=== PATIENT | male | born 1955 | race African-American/Black ===

== ENCOUNTER 2016-08-20 11:59 | Inpatient (IN) | payer MEDICAID, OTHER ==
[~2016-08-20] VITALS: Ht 180.3 cm; Wt 59.0 kg
[2016-08-20] MEDS ORDERED: ONDANSETRON HCL 4MG/2ML VIAL IV STA (12:40)
[2016-08-20] MEDS ORDERED: LABETALOL 5MG/ML SYR 20 MG/4 ML SYRINGE IV ONE (12:45)
[2016-08-20 12:59] LABS: BG BASE EXCESS -2.3 mmol/L (-2.0-2.0); BG CARBOXYHEMOGLOBIN 3.9 % (0.5-1.5); BG DEOXYHEMOGLOBIN 5.1 % (0.0-5.0); BG FRACTION INSPIRED OXYGEN 21; BG HCO3 ACT 22.6 mmol/L (22.0-26.0); BG METHEMOGLOBIN 0.3 % (0.0-1.5); BG OXYGEN SATURATION 94.7 % (92.0-98.5); BG OXYHEMOGLOBIN 90.7 % (94.0-97.0); BG PCO2 39.3 mmHg (35.0-45.0); BG PH 7.378 (7.350-7.450); BG PO2 79.4 mmHg (75.0-100.0); BG SAMPLE SITE RIGHT BRACHIAL; BG VENT MODE ROOM AIR
[2016-08-20 13:15] LABS: EOSINOPHILS % 1.2 % (0.0-5.0); HEMATOCRIT. 32.6 % (42.0-52.0); HEMOGLOBIN. 10.6 g/dL (14.0-18.0); LYMPHOCYTES % 20.1 % (20.0-50.0); MEAN CORPUSCULAR HEMOGLOBIN 27.5 pg (28.0-32.0); MEAN CORPUSCULAR VOLUME 84.6 fL (80.0-94.0); MEAN PLATELET VOLUME 7.3 fl (7.4-10.4); MONOCYTES % 5.6 % (2.0-8.0); NEUTROPHILS % 72.1 % (40.0-76.0); PLATELET 235 x1000/uL (130-400); RED BLOOD CELL COUNT 3.85 mill/uL (4.7-6.1)
[2016-08-20] MEDS ORDERED: DEXTROSE 50% WATER 50ML SYRINGE IV ONE (13:15)
[2016-08-20] MEDS ORDERED: CALCIUM CHLORIDE 1GM/10ML SYR IV ONE (13:15)
[2016-08-20] MEDS ORDERED: SODIUM BICARBONATE 8.4% 1 MEQ/ML 50ML SYR IV ONE (13:15)
[2016-08-20] MEDS ORDERED: INSULIN REGULAR (HUMULIN R) 300UNITS/3ML IV ONE (13:15)
[2016-08-20] MEDS ORDERED: SODIUM POLYSTYRENE SULFONATE 15 G/60 ML BOT PO ONE (13:15)
[2016-08-20 13:25] LABS: INR 1.1; PARTIAL THROMBOPLASTIN TIME 29.7 sec (24.0-34.0); PROTHROMBIN TIME 11.2 sec
[2016-08-20] MEDS ORDERED: DIPHENHYDRAMINE 50MG/ML VIAL IV PRN (13:30)
[2016-08-20] MEDS ORDERED: CLONIDINE 0.1MG TABLET PO PRN (13:30)
[2016-08-20] MEDS ORDERED: HYDRALAZINE 20MG/ML VIAL IV PRN (13:30)
[2016-08-20] MEDS ORDERED: ACETAMINOPHEN 325MG TABLET PO PRN (13:30)
[2016-08-20] MEDS ORDERED: ONDANSETRON HCL 4MG/2ML VIAL IV PRN (13:30)
[2016-08-20] MEDS ORDERED: IPRATROPIUM/ALBUTEROL 0.5-3(2.5)MG/3ML NEB INH PRN (13:30)
[2016-08-20] MEDS ORDERED: HYDROCODONE/ACETAMINOPHEN 5/325MG TABLET PO PRN (13:30)
[2016-08-20 13:31] LABS: CARBON DIOXIDE 26 mEq/L (21-32); CHLORIDE 100 mEq/L (98-107); PHOSPHORUS 5.3 mg/dL (2.5-4.9); TROPONIN I 0.04 ng/mL (0.00-0.04)
[2016-08-20 14:35] VITALS: BP 176/78
[2016-08-20 16:00] VITALS: BP 185/104
[2016-08-20] MEDS ORDERED: CARV25TA47 (17:10)
[2016-08-20] MEDS ORDERED: TAMS0.4C31 (17:10)
[2016-08-20] MEDS ORDERED: CEPH500C2 (17:10)
[2016-08-20] MEDS ORDERED: CALC667C (17:10)
[2016-08-20] MEDS ORDERED: CLON0.1T (17:10)
[2016-08-20] MEDS ORDERED: AMLO5TAB88 (17:10)
[2016-08-20] MEDS ORDERED: FOLI0.8T23 (17:10)
[2016-08-20] MEDS ORDERED: LOSA50TA20 (17:10)
[2016-08-20] MEDS ORDERED: HYDR-3927 (17:10)
== END 2016-08-20 20:30 | disposition left against medical advice (07) | DRG 460 ==
LOC: ER 12:00 → 8WST 13:05 → EDBEDREQSVC 13:07 → EDBEDREQTM 13:07 → EDBEDREQ 13:07 → ENRESERV 13:29
PROVIDERS: ADMIT Internal Medicine; ATTEND Internal Medicine
PROC: 5A1D00Z (ICD-10-PCS; principal; 2016-08-20)
DX: I12.0 Hypertensive chronic kidney disease with stage 5 chronic kidney disease or end stage renal disease (principal); N17.9 Acute kidney failure, unspecified; E87.8 Other disorders of electrolyte and fluid balance, not elsewhere classified; E87.70 Fluid overload, unspecified; N18.6 End stage renal disease; F12.90 Cannabis use, unspecified, uncomplicated; Z53.21 Procedure and treatment not carried out due to patient leaving prior to being seen by health care provider; I16.0 Hypertensive urgency; Z63.9 Problem related to primary support group, unspecified; Z99.2 Dependence on renal dialysis; Z91.19 Patient's noncompliance with other medical treatment and regimen
CPT/HCPCS: 36415; 36600; 70450; 71010; 80053; 82375; 82805; 82962; 83690; 83735; 84100; 84443; 84484; 85025; 85610; 85730; 87040; 93005; 96374; 96375; 99291; J1815; J2405; J3490; J7030

== ENCOUNTER 2016-08-21 22:51 | Inpatient (IN) | payer OTHER ==
[~2016-08-21] VITALS: Ht 180.3 cm; Wt 76.8 kg
[~2016-08-21 22:51] MED LIST: AMLO5TAB88; CALC667C; CARV25TA47; CEPH500C2; CLON0.1T; FOLI0.8T23; HYDR-3927; LOSA50TA20; TAMS0.4C31
[2016-08-21] MEDS ORDERED: FAMOTIDINE 20MG/2ML VIAL IV STA (23:10)
[2016-08-21] MEDS ORDERED: SODIUM CHLORIDE 0.9% 500 ML IV ONE (23:10)
[2016-08-21] MEDS ORDERED: ONDANSETRON HCL 4MG/2ML VIAL IV ONE (23:15)
[2016-08-21] MEDS ORDERED: MORPHINE SULFATE 2 MG/ML CPJ (NOT FOR IM USE) IV ONE (23:15)
[2016-08-22] MEDS ORDERED: HYDRALAZINE 20MG/ML VIAL IV ONE (00:15)
[2016-08-22 00:27] LABS: HEMATOCRIT. 32.8 % (42.0-52.0); HEMOGLOBIN. 10.8 g/dL (14.0-18.0); INR 1.1; MEAN CORPUSCULAR HEMOGLOBIN 27.5 pg (28.0-32.0); MEAN CORPUSCULAR VOLUME 83.6 fL (80.0-94.0); MEAN PLATELET VOLUME 7.7 fl (7.4-10.4); PLATELET 235 x1000/uL (130-400); PROTHROMBIN TIME 11.5 sec; RED BLOOD CELL COUNT 3.92 mill/uL (4.7-6.1); RED CELL DISTRIBUTION WIDTH 17.3 % (11.6-14.6)
[2016-08-22 00:30] LABS: AMMONIA 26 uMol/L (<32)
[2016-08-22 00:34] LABS: CARBON DIOXIDE 28 mEq/L (21-32); CHLORIDE 97 mEq/L (98-107); CREATINE KINASE 101 IU/L (39-308); ETHANOL BLOOD < 10 mg/dL; TROPONIN I 0.04 ng/mL (0.00-0.04)
[2016-08-22] MEDS ORDERED: MORPHINE SULFATE 4 MG/ML CPJ (NOT FOR IM USE) IV ONE (02:00)
[2016-08-22] MEDS ORDERED: ONDANSETRON HCL 4MG/2ML VIAL IV ONE (02:00)
[2016-08-22 05:05] LABS: PLATELET ESTIMATE NORMAL
[2016-08-22 09:02] VITALS: BP 147/97
[2016-08-22 10:00] VITALS: BP 147/97
[2016-08-22] MEDS ORDERED: ONDANSETRON HCL 4MG/2ML VIAL IV PRN (11:45)
[2016-08-22 12:13] VITALS: BP 183/114
== END 2016-08-22 15:40 | disposition left against medical advice (07) | DRG 460 ==
LOC: ER 22:55 → EDBEDREQ 08-22 03:45 → ENRESERV 08-22 07:00 → 6WST 08-22 08:45
PROVIDERS: ADMIT Internal Medicine; ATTEND Internal Medicine
PROC: 5A1D00Z (ICD-10-PCS; principal; 2016-08-22)
DX: I12.0 Hypertensive chronic kidney disease with stage 5 chronic kidney disease or end stage renal disease (principal); N18.6 End stage renal disease; F12.90 Cannabis use, unspecified, uncomplicated; Z53.21 Procedure and treatment not carried out due to patient leaving prior to being seen by health care provider; Z99.2 Dependence on renal dialysis
CPT/HCPCS: 36415; 71010; 74176; 80053; 82140; 82550; 83605; 83690; 83880; 84443; 84484; 85025; 85610; 87040; 87077; 93005; 96361; 96374; 96375; 96376; 99285; G0482; J0360; J2270; J2405; J3490; J7040

== ENCOUNTER 2016-09-01 18:03 | Inpatient (IN) | payer OTHER ==
[~2016-09-01] VITALS: Ht 180.3 cm; Wt 58.1 kg
[2016-09-01] MEDS ORDERED: ONDANSETRON HCL 4MG/2ML VIAL IV STA (18:26)
[2016-09-01 19:04] LABS: INR 1.1; PARTIAL THROMBOPLASTIN TIME 32.7 sec (24.0-34.0)
[2016-09-01 19:05] LABS: BASOPHILS % 0.9 % (0.0-2.0); EOSINOPHILS % 0.8 % (0.0-5.0); HEMATOCRIT. 26.5 % (42.0-52.0); HEMOGLOBIN. 8.7 g/dL (14.0-18.0); MEAN CORPUSCULAR HEMOGLOBIN 26.7 pg (28.0-32.0); MEAN CORPUSCULAR VOLUME 81.4 fL (80.0-94.0); MEAN PLATELET VOLUME 7.8 fl (7.4-10.4); MONOCYTES % 5.6 % (2.0-8.0); NEUTROPHILS % 80.7 % (40.0-76.0); PLATELET 310 x1000/uL (130-400); RED BLOOD CELL COUNT 3.26 mill/uL (4.7-6.1); RED CELL DISTRIBUTION WIDTH 17.5 % (11.6-14.6)
[2016-09-01 19:13] LABS: CARBON DIOXIDE 25 mEq/L (21-32); CHLORIDE 95 mEq/L (98-107); TROPONIN I < 0.02 ng/mL (0.00-0.04)
[2016-09-01] MEDS ORDERED: CALCIUM CHLORIDE 1GM/10ML SYR IV ONE (19:30)
[2016-09-01] MEDS ORDERED: SODIUM POLYSTYRENE SULFONATE 15 G/60 ML BOT PO ONE (19:30)
[2016-09-01] MEDS ORDERED: INSULIN REGULAR (HUMULIN R) 300UNITS/3ML IV ONE (19:30)
[2016-09-01] MEDS ORDERED: ALBUTEROL (0.083%) 2.5MG/3ML NEB HHN ONE (19:30)
[2016-09-01] MEDS ORDERED: SODIUM BICARBONATE 8.4% 1 MEQ/ML 50ML SYR IV ONE (19:30)
[2016-09-01] MEDS ORDERED: DEXTROSE 50% WATER 50ML SYRINGE IV ONE (19:30)
[2016-09-01 23:00] VITALS: BP 161/97
[2016-09-02] VITALS (9 sets, daily range): BP systolic 133–161; BP diastolic 78–111
[2016-09-02 06:32] LABS: BASOPHILS % 0.7 % (0.0-2.0); EOSINOPHILS % 0.7 % (0.0-5.0); HEMATOCRIT. 31.5 % (42.0-52.0); HEMOGLOBIN. 10.3 g/dL (14.0-18.0); LYMPHOCYTES % 12.8 % (20.0-50.0); MEAN CORPUSCULAR HEMOGLOBIN 26.6 pg (28.0-32.0); MEAN PLATELET VOLUME 7.8 fl (7.4-10.4); MONOCYTES % 4.8 % (2.0-8.0); PLATELET 330 x1000/uL (130-400); RED BLOOD CELL COUNT 3.89 mill/uL (4.7-6.1); RED CELL DISTRIBUTION WIDTH 17.4 % (11.6-14.6)
[2016-09-02 07:30] LABS: PHOSPHORUS 4.5 mg/dL (2.5-4.9)
[2016-09-02] MEDS ORDERED: TAMSULOSIN HCL 0.4MG SR CAPSULE PO SCH (09:00)
[2016-09-02] MEDS: CALCIUM ACETATE 667MG CAPSULE PO SCH ×2 (09:07→14:03)
[2016-09-02] MEDS ORDERED: CEFAZOLIN 1000MG PREMIX 50 ML IV SCH (14:00)
[2016-09-02] MEDS ORDERED: EPOETIN ALFA 10000UNITS/ML VIAL SUBCUT SCH (21:00)
== END 2016-09-02 17:35 | disposition left against medical advice (07) | DRG 460 ==
LOC: ER 19:22 → 5EST 21:12 → EDBEDREQ 21:14 → EDBEDREQSVC 21:14 → EDBEDREQTM 21:14 → ENRESERV 21:29
PROVIDERS: ADMIT Internal Medicine; ATTEND Internal Medicine
PROC: 5A1D00Z (ICD-10-PCS; principal; 2016-09-02)
DX: I12.0 Hypertensive chronic kidney disease with stage 5 chronic kidney disease or end stage renal disease (principal); N18.6 End stage renal disease; E87.1 Hypo-osmolality and hyponatremia; E87.5 Hyperkalemia; N40.0 Benign prostatic hyperplasia without lower urinary tract symptoms; D63.8 Anemia in other chronic diseases classified elsewhere; F12.90 Cannabis use, unspecified, uncomplicated; F17.210 Nicotine dependence, cigarettes, uncomplicated; Z91.15 Patient's noncompliance with renal dialysis; Z99.2 Dependence on renal dialysis
CPT/HCPCS: 36415; 71010; 80048; 84100; 84484; 85025; 85610; 85730; 87040; 93005; 93306; 94640; 96374; 96375; 99285; J0690; J1815; J2405; J3490; J7030; J7611

== ENCOUNTER 2016-09-07 19:13 | Inpatient (IN) | payer OTHER ==
[~2016-09-07] VITALS: Ht 180.3 cm; Wt 70.8 kg
[2016-09-07] MEDS ORDERED: MORPHINE SULFATE 4 MG/ML CPJ (NOT FOR IM USE) IV STA (19:53)
[2016-09-07] MEDS ORDERED: LABETALOL HCL 20MG/4ML CARPUJECT IV ONE (20:00)
[2016-09-07 20:12] LABS: BASOPHILS % 1.8 % (0.0-2.0); HEMATOCRIT. 27.5 % (42.0-52.0); HEMOGLOBIN. 8.8 g/dL (14.0-18.0); MEAN CORPUSCULAR HEMOGLOBIN 26.4 pg (28.0-32.0); MEAN CORPUSCULAR VOLUME 82.2 fL (80.0-94.0); MEAN PLATELET VOLUME 7.4 fl (7.4-10.4); MONOCYTES % 8.3 % (2.0-8.0); NEUTROPHILS % 64.9 % (40.0-76.0); PLATELET 387 x1000/uL (130-400); RED BLOOD CELL COUNT 3.34 mill/uL (4.7-6.1); RED CELL DISTRIBUTION WIDTH 17.5 % (11.6-14.6)
[2016-09-07 20:16] LABS: INR 1.1; PROTHROMBIN TIME 11.6 sec
[2016-09-07 20:24] LABS: CARBON DIOXIDE 23 mEq/L (21-32); CHLORIDE 97 mEq/L (98-107); TROPONIN I < 0.02 ng/mL (0.00-0.04)
[2016-09-07] MEDS ORDERED: FUROSEMIDE 100MG/10ML VIAL IV STA (20:28)
[2016-09-07] MEDS ORDERED: INSULIN REGULAR (HUMULIN R) 300UNITS/3ML IV ONE (20:30)
[2016-09-07] MEDS ORDERED: ALBUTEROL (0.083%) 2.5MG/3ML NEB HHN ONE (20:30)
[2016-09-07] MEDS ORDERED: SODIUM POLYSTYRENE SULFONATE 15 G/60 ML BOT PO ONE (20:30)
[2016-09-07] MEDS ORDERED: SODIUM BICARBONATE 8.4% 1 MEQ/ML 50ML SYR IV ONE (20:30)
[2016-09-07] MEDS ORDERED: LABETALOL HCL 20MG/4ML CARPUJECT IV NR (20:30)
[2016-09-07] MEDS ORDERED: DEXTROSE 50% WATER 50ML SYRINGE IV ONE (20:30)
[2016-09-07] MEDS ORDERED: CALCIUM CHLORIDE 1GM/10ML SYR IV ONE (20:30)
[2016-09-07] MEDS ORDERED: LABETALOL 5MG/ML SYR 20 MG/4 ML SYRINGE IV NR (21:00)
[2016-09-07] MEDS ORDERED: ONDANSETRON HCL 4MG/2ML VIAL IV STA (21:01)
[2016-09-07] MEDS ORDERED: DIPHENHYDRAMINE 50MG/ML VIAL IV ONE (21:15)
[2016-09-08] VITALS: BP 170/105
[2016-09-08 00:47] VITALS: BP 170/105
[2016-09-08] MEDS ORDERED: MORPHINE SULFATE 4 MG/ML CPJ (NOT FOR IM USE) IV PRN (01:30)
[2016-09-08 04:00] VITALS: BP 136/74
[2016-09-08 06:55] LABS: BASOPHILS % 1.9 % (0.0-2.0); EOSINOPHILS % 2.2 % (0.0-5.0); HEMATOCRIT. 26.2 % (42.0-52.0); HEMOGLOBIN. 8.5 g/dL (14.0-18.0); LYMPHOCYTES % 25.4 % (20.0-50.0); MEAN CORPUSCULAR HEMOGLOBIN 26.6 pg (28.0-32.0); MEAN CORPUSCULAR VOLUME 81.7 fL (80.0-94.0); MEAN PLATELET VOLUME 7.9 fl (7.4-10.4); MONOCYTES % 11.5 % (2.0-8.0); PLATELET 338 x1000/uL (130-400); RED CELL DISTRIBUTION WIDTH 17.7 % (11.6-14.6)
[2016-09-08 06:58] LABS: PHOSPHORUS 4.6 mg/dL (2.5-4.9)
[2016-09-08] MEDS ORDERED: CALCIUM ACETATE 667MG CAPSULE PO SCH (07:50)
[2016-09-08 08:00] VITALS: BP 136/74
[2016-09-08] MEDS ORDERED: LOSARTAN POTASSIUM 50 MG TABLET PO SCH (09:00)
[2016-09-08] MEDS ORDERED: FOLIC ACID/VITAMIN B COMP W-C TABLET PO SCH (09:00)
[2016-09-08] MEDS ORDERED: CARVEDILOL 25MG TABLET PO SCH (09:00)
[2016-09-08] MEDS ORDERED: TAMSULOSIN HCL 0.4MG SR CAPSULE PO SCH (09:00)
== END 2016-09-08 11:30 | disposition left against medical advice (07) | DRG 460 ==
LOC: ER 19:58 → EDBEDREQ 20:43 → 6WST 20:49 → EDBEDREQ 20:50 → ENRESERV 21:42
PROVIDERS: ADMIT Internal Medicine; ATTEND Internal Medicine
PROC: 5A1D00Z (ICD-10-PCS; principal; 2016-09-08)
DX: I12.0 Hypertensive chronic kidney disease with stage 5 chronic kidney disease or end stage renal disease (principal); N18.6 End stage renal disease; E87.1 Hypo-osmolality and hyponatremia; D50.9 Iron deficiency anemia, unspecified; F17.210 Nicotine dependence, cigarettes, uncomplicated; I16.1 Hypertensive emergency; E87.5 Hyperkalemia; J44.9 Chronic obstructive pulmonary disease, unspecified; N40.0 Benign prostatic hyperplasia without lower urinary tract symptoms; Z53.21 Procedure and treatment not carried out due to patient leaving prior to being seen by health care provider; F14.90 Cocaine use, unspecified, uncomplicated; Z91.15 Patient's noncompliance with renal dialysis; Z99.2 Dependence on renal dialysis
CPT/HCPCS: 36415; 71010; 80048; 80053; 82962; 84100; 84484; 85025; 85610; 93005; 94640; 96374; 96375; 99291; J1200; J1815; J1940; J2270; J2405; J3490; J7030; J7611

== ENCOUNTER 2016-09-18 06:34 | Inpatient (IN) | payer OTHER ==
[~2016-09-18] VITALS: Ht 175.3 cm; Wt 57.6 kg
[2016-09-18] MEDS ORDERED: MORPHINE SULFATE 4 MG/ML CPJ (NOT FOR IM USE) IV STA (06:46)
[2016-09-18] MEDS ORDERED: ONDANSETRON HCL 4MG/2ML VIAL IV STA ×2 (06:46→08:43)
[2016-09-18] MEDS ORDERED: SODIUM CHLORIDE 0.9% 250 ML IV ONE (07:00)
[2016-09-18 07:13] LABS: BASOPHILS % 2.7 % (0.0-2.0); EOSINOPHILS % 2.2 % (0.0-5.0); HEMATOCRIT. 24.7 % (42.0-52.0); HEMOGLOBIN. 8.1 g/dL (14.0-18.0); LYMPHOCYTES % 21.3 % (20.0-50.0); MEAN CORPUSCULAR HEMOGLOBIN 26.7 pg (28.0-32.0); MEAN CORPUSCULAR VOLUME 81.6 fL (80.0-94.0); MEAN PLATELET VOLUME 7.7 fl (7.4-10.4); MONOCYTES % 11.3 % (2.0-8.0); NEUTROPHILS % 62.5 % (40.0-76.0); PLATELET 238 x1000/uL (130-400); RED BLOOD CELL COUNT 3.03 mill/uL (4.7-6.1); RED CELL DISTRIBUTION WIDTH 18.4 % (11.6-14.6)
[2016-09-18 07:18] LABS: PROTHROMBIN TIME 10.7 sec
[2016-09-18 07:26] LABS: CARBON DIOXIDE 27 mEq/L (21-32); CHLORIDE 102 mEq/L (98-107)
[2016-09-18] MEDS ORDERED: MORPHINE SULFATE 4 MG/ML CPJ (NOT FOR IM USE) IV ONE (10:45)
[2016-09-18] MEDS ORDERED: CLONIDINE 0.2MG TABLET PO ONE (10:45)
[2016-09-18] MEDS ORDERED: CLONIDINE 0.1MG TABLET PO PRN (15:15)
[2016-09-18] MEDS ORDERED: ACETAMINOPHEN 325MG TABLET PO PRN (15:15)
[2016-09-18] MEDS ORDERED: MAGNESIUM/ALUMINUM HYDROXIDE/SIMETHICONE 30ML UDC PO PRN (15:15)
[2016-09-18] MEDS ORDERED: ONDANSETRON HCL 4MG/2ML VIAL IV PRN (15:15)
[2016-09-18] MEDS ORDERED: HYDROCODONE/ACETAMINOPHEN 5/325MG TABLET PO PRN (15:48)
[2016-09-18 17:30] VITALS: BP 138/102
[2016-09-18 17:39] VITALS: BP 138/102
[2016-09-18] MEDS: FOLIC ACID/VITAMIN B COMP W-C TABLET PO SCH (18:04)
[2016-09-18] MEDS: AMLODIPINE 5MG TABLET PO SCH (18:04)
[2016-09-18] MEDS: CARVEDILOL 25MG TABLET PO SCH ×2 (18:05→21:13)
[2016-09-18] MEDS: CALCIUM ACETATE 667MG CAPSULE PO SCH (18:05)
[2016-09-18] MEDS: LOSARTAN POTASSIUM 50 MG TABLET PO SCH (18:05)
[2016-09-18 20:00] VITALS: BP 134/104
[2016-09-18] MEDS: TAMSULOSIN HCL 0.4MG SR CAPSULE PO SCH (21:13)
[2016-09-18] MEDS: SODIUM CHLORIDE 0.9% INJ 3ML FLUSH IVF SCH (21:13)
[2016-09-19] VITALS: BP 130/86
[2016-09-19 04:00] VITALS: BP 151/103
[2016-09-19] MEDS: SODIUM CHLORIDE 0.9% INJ 3ML FLUSH IVF SCH ×2 (05:54→15:53)
[2016-09-19 08:00] VITALS: BP 153/96
[2016-09-19 08:19] VITALS: BP 154/96
[2016-09-19] MEDS: CARVEDILOL 25MG TABLET PO SCH ×2 (08:48→21:19)
[2016-09-19] MEDS: LOSARTAN POTASSIUM 50 MG TABLET PO SCH (08:48)
[2016-09-19] MEDS: CALCIUM ACETATE 667MG CAPSULE PO SCH ×3 (08:49→17:14)
[2016-09-19] MEDS: FOLIC ACID/VITAMIN B COMP W-C TABLET PO SCH (08:49)
[2016-09-19] MEDS: AMLODIPINE 5MG TABLET PO SCH (08:49)
[2016-09-19 12:00] VITALS: BP 151/98
[2016-09-19 15:18] LABS: BASOPHILS % 1.5 % (0.0-2.0); EOSINOPHILS % 2.9 % (0.0-5.0); HEMATOCRIT. 26.9 % (42.0-52.0); HEMOGLOBIN. 8.7 g/dL (14.0-18.0); LYMPHOCYTES % 26.9 % (20.0-50.0); MEAN CORPUSCULAR HEMOGLOBIN 26.5 pg (28.0-32.0); MEAN CORPUSCULAR VOLUME 82.2 fL (80.0-94.0); MEAN PLATELET VOLUME 7.8 fl (7.4-10.4); MONOCYTES % 13.9 % (2.0-8.0); NEUTROPHILS % 54.8 % (40.0-76.0); PLATELET 227 x1000/uL (130-400); RED BLOOD CELL COUNT 3.27 mill/uL (4.7-6.1); RED CELL DISTRIBUTION WIDTH 18.4 % (11.6-14.6)
[2016-09-19 15:27] LABS: CHLORIDE 100 mEq/L (98-107)
[2016-09-19 15:35] LABS: CARBON DIOXIDE 27 mEq/L (21-32)
[2016-09-19 16:00] VITALS: BP 169/115
[2016-09-19] MEDS: TAMSULOSIN HCL 0.4MG SR CAPSULE PO SCH (21:18)
== END 2016-09-19 22:40 | disposition home or self-care (01) | DRG 282 ==
LOC: ER 06:34 → 6WST 09:23 → ENRESERV 15:51
PROVIDERS: ADMIT Internal Medicine; ATTEND Internal Medicine
PROC: 5A1D00Z (ICD-10-PCS; principal; 2016-09-19)
DX: K85.90 Acute pancreatitis without necrosis or infection, unspecified (principal); N18.6 End stage renal disease; I12.0 Hypertensive chronic kidney disease with stage 5 chronic kidney disease or end stage renal disease; D63.1 Anemia in chronic kidney disease; F17.210 Nicotine dependence, cigarettes, uncomplicated; K52.9 Noninfective gastroenteritis and colitis, unspecified; Z66 Do not resuscitate; Z99.2 Dependence on renal dialysis
CPT/HCPCS: 36415; 74176; 80053; 83690; 84100; 85025; 85610; 93005; 96361; 96374; 96375; 96376; 99285; J2270; J2405; J7030; J7050

== ENCOUNTER 2016-09-24 22:06 | Inpatient (IN) | payer OTHER ==
[~2016-09-24] VITALS: Ht 200.7 cm; Wt 79.4 kg
[2016-09-24] MEDS ORDERED: ONDANSETRON HCL 4MG/2ML VIAL IV STA (22:47)
[2016-09-24] MEDS ORDERED: SODIUM CHLORIDE 0.9% 250 ML IV ONE (22:47)
[2016-09-24] MEDS ORDERED: MORPHINE SULFATE 4 MG/ML CPJ (NOT FOR IM USE) IV STA (22:47)
[2016-09-24] MEDS ORDERED: FAMOTIDINE 20MG/2ML VIAL IV ONE (23:00)
[2016-09-24 23:11] LABS: BASOPHILS % 0.6 % (0.0-2.0); HEMATOCRIT. 25.7 % (42.0-52.0); HEMOGLOBIN. 8.4 g/dL (14.0-18.0); MEAN CORPUSCULAR HEMOGLOBIN 26.9 pg (28.0-32.0); MEAN CORPUSCULAR VOLUME 82.2 fL (80.0-94.0); MEAN PLATELET VOLUME 6.9 fl (7.4-10.4); MONOCYTES % 5.3 % (2.0-8.0); NEUTROPHILS % 79.1 % (40.0-76.0); PLATELET 255 x1000/uL (130-400); RED BLOOD CELL COUNT 3.13 mill/uL (4.7-6.1); RED CELL DISTRIBUTION WIDTH 18.8 % (11.6-14.6)
[2016-09-24 23:16] LABS: INR 1.1; PROTHROMBIN TIME 11.1 sec
[2016-09-24 23:32] LABS: TROPONIN I 0.03 ng/mL (0.00-0.04)
[2016-09-25 00:15] LABS: CHLORIDE 101 mEq/L (98-107)
[2016-09-25 00:16] LABS: CARBON DIOXIDE 24 mEq/L (21-32)
[2016-09-25 00:17] LABS: ETHANOL BLOOD < 10 mg/dL
[2016-09-25] MEDS ORDERED: CLONIDINE 0.2MG TABLET PO ONE (00:30)
[2016-09-25] MEDS ORDERED: SODIUM POLYSTYRENE SULFONATE 15 G/60 ML BOT PO ONE (00:45)
[2016-09-25] MEDS ORDERED: CALCIUM CHLORIDE 1GM/10ML SYR IV ONE (00:45)
[2016-09-25] MEDS ORDERED: SODIUM BICARBONATE 8.4% 1 MEQ/ML 50ML SYR IV ONE (00:45)
[2016-09-25] MEDS ORDERED: INSULIN REGULAR (HUMULIN R) 300UNITS/3ML IV ONE (00:45)
[2016-09-25] MEDS ORDERED: DEXTROSE 50% WATER 50ML SYRINGE IV ONE (00:45)
[2016-09-25 04:00] VITALS: BP 144/97
[2016-09-25] MEDS ORDERED: IPRATROPIUM/ALBUTEROL 0.5-3(2.5)MG/3ML NEB INH PRN (06:15)
[2016-09-25] MEDS ORDERED: HYDROCODONE/ACETAMINOPHEN 5/325MG TABLET PO PRN (06:15)
[2016-09-25] MEDS ORDERED: CLONIDINE 0.1MG TABLET PO PRN (06:15)
[2016-09-25] MEDS ORDERED: MAGNESIUM/ALUMINUM HYDROXIDE/SIMETHICONE 30ML UDC PO PRN (06:15)
[2016-09-25] MEDS ORDERED: ONDANSETRON HCL 4MG/2ML VIAL IV PRN ×2 (06:15→10:00)
[2016-09-25] MEDS ORDERED: ACETAMINOPHEN 325MG TABLET PO PRN (06:15)
[2016-09-25] MEDS: CALCIUM ACETATE 667MG CAPSULE PO SCH ×2 (08:10→13:10)
[2016-09-25] MEDS ORDERED: AMLODIPINE 5MG TABLET PO SCH (09:00)
[2016-09-25] MEDS ORDERED: FOLIC ACID/VITAMIN B COMP W-C TABLET PO SCH (09:00)
[2016-09-25] MEDS ORDERED: LOSARTAN POTASSIUM 50 MG TABLET PO SCH (09:00)
[2016-09-25] MEDS ORDERED: MORPHINE SULFATE 2 MG/ML CPJ (NOT FOR IM USE) IV PRN (10:00)
[2016-09-25 10:09] LABS: BASOPHILS % 0.6 % (0.0-2.0); EOSINOPHILS % 0.7 % (0.0-5.0); HEMATOCRIT. 21.8 % (42.0-52.0); HEMOGLOBIN. 7.2 g/dL (14.0-18.0); LYMPHOCYTES % 18.6 % (20.0-50.0); MEAN CORPUSCULAR HEMOGLOBIN 27.3 pg (28.0-32.0); MEAN CORPUSCULAR VOLUME 82.3 fL (80.0-94.0); MEAN PLATELET VOLUME 7.1 fl (7.4-10.4); MONOCYTES % 8.1 % (2.0-8.0); PLATELET 256 x1000/uL (130-400); RED BLOOD CELL COUNT 2.65 mill/uL (4.7-6.1); RED CELL DISTRIBUTION WIDTH 19.1 % (11.6-14.6)
[2016-09-25] MEDS ORDERED: CLONIDINE 0.1MG TABLET PO SCH (10:10)
[2016-09-25] MEDS ORDERED: CARVEDILOL 25MG TABLET PO SCH (10:30)
[2016-09-25] MEDS ORDERED: TAMSULOSIN HCL 0.4MG SR CAPSULE PO SCH (21:00)
[2016-09-26] MEDS ORDERED: ENOXAPARIN 30MG/0.3ML SYR SUBCUT SCH (09:00)
== END 2016-09-25 12:58 | disposition left against medical advice (07) | DRG 460 ==
LOC: ER 22:26 → 7WST 09-25 01:39 → EDBEDREQTM 09-25 01:47 → EDBEDREQ 09-25 01:47 → ENRESERV 09-25 02:52
PROVIDERS: ADMIT Internal Medicine; ATTEND Internal Medicine
DX: I12.0 Hypertensive chronic kidney disease with stage 5 chronic kidney disease or end stage renal disease (principal); K85.90 Acute pancreatitis without necrosis or infection, unspecified; N18.6 End stage renal disease; D64.9 Anemia, unspecified; E87.70 Fluid overload, unspecified; E87.5 Hyperkalemia; Z91.19 Patient's noncompliance with other medical treatment and regimen; Z99.2 Dependence on renal dialysis
CPT/HCPCS: 36415; 71010; 74000; 80048; 80053; 82962; 83690; 83880; 84484; 85025; 85610; 87040; 93005; 93970; 96361; 96374; 96375; 99285; G0482; J1815; J2270; J2405; J3490; J7030; J7042; J7050

== ENCOUNTER 2016-10-10 18:05 | Inpatient (IN) | payer OTHER ==
[~2016-10-10] VITALS: Ht 180.3 cm; Wt 55.8 kg
[~2016-10-10 18:05] MED LIST changes: -AMLO5TAB88; +AMLO5TAB88 PO; -CALC667C; +CALC667C PO; -CARV25TA47; +CARV25TA47 PO; -CLON0.1T; +CLON0.1T PO; -FOLI0.8T23; +FOLI0.8T23 PO; -HYDR-3927; +HYDR-4001 PO; -LOSA50TA20; +LOSA50TA20 PO; -TAMS0.4C31; +TAMS0.4C31 PO
[2016-10-10] MEDS ORDERED: FAMOTIDINE 20MG/2ML VIAL IV STA (19:02)
[2016-10-10] MEDS ORDERED: PANTOPRAZOLE SODIUM 40 MG/VIAL IV STA (19:02)
[2016-10-10] MEDS ORDERED: SODIUM CHLORIDE 0.9% 1,000 ML IV ONE (19:02)
[2016-10-10 19:31] LABS: BASOPHILS % 1.1 % (0.0-2.0); EOSINOPHILS % 1.3 % (0.0-5.0); HEMATOCRIT. 24.4 % (42.0-52.0); HEMOGLOBIN. 7.7 g/dL (14.0-18.0); LYMPHOCYTES % 20.4 % (20.0-50.0); MEAN CORPUSCULAR HEMOGLOBIN 26.6 pg (28.0-32.0); MEAN CORPUSCULAR VOLUME 84.4 fL (80.0-94.0); MEAN PLATELET VOLUME 6.6 fl (7.4-10.4); MONOCYTES % 8.6 % (2.0-8.0); NEUTROPHILS % 68.6 % (40.0-76.0); PLATELET 338 x1000/uL (130-400); RED CELL DISTRIBUTION WIDTH 21.3 % (11.6-14.6)
[2016-10-10 19:34] LABS: CHLORIDE 105 mEq/L (98-107)
[2016-10-10 19:35] LABS: INR 1.1; PROTHROMBIN TIME 11.2 sec
[2016-10-10 19:40] LABS: CARBON DIOXIDE 22 mEq/L (21-32)
[2016-10-10] MEDS ORDERED: MORPHINE SULFATE 4 MG/ML CPJ (NOT FOR IM USE) IV ONE (20:30)
[2016-10-10] MEDS ORDERED: ONDANSETRON HCL 4MG/2ML VIAL IV ONE (20:45)
[2016-10-10] MEDS ORDERED: LABETALOL HCL 20MG/4ML CARPUJECT IV ONE (23:15)
[2016-10-10] MEDS ORDERED: LABETALOL 5MG/ML SYR 20 MG/4 ML SYRINGE IV ONE (23:45)
[2016-10-11] MEDS ORDERED: ONDANSETRON HCL 4MG/2ML VIAL IV ONE
[2016-10-11] MEDS ORDERED: LABETALOL HCL 20MG/4ML CARPUJECT IV ONE (00:45)
[2016-10-11 00:56] LABS: CLARITY URINE CLEAR (CLEAR); COLOR URINE YELLOW (YELLOW); KETONES URINE NEGATIVE (NEGATIVE); LEUKOCYTE ESTERASE URINE TRACE (NEGATIVE); NITRITE URINE NEGATIVE (NEGATIVE); OCCULT BLOOD URINE TRACE (NEGATIVE); PH URINE 8.5 (4.5-8.0); PROTEIN URINE 3+ (NEGATIVE); SPECIFIC GRAVITY URINE 1.014 (1.005-1.030); UROBILINOGEN URINE 0.2 E.U./dL (0.2-1.0)
[2016-10-11] MEDS ORDERED: LABETALOL 5MG/ML SYR 20 MG/4 ML SYRINGE IV NR (01:45)
[2016-10-11] MEDS ORDERED: SODIUM CHLORIDE 0.45% 1,000 ML IV SCH (01:51)
[2016-10-11] MEDS ORDERED: ACETAMINOPHEN 325MG TABLET PO PRN ×2 (02:00→13:15)
[2016-10-11] MEDS ORDERED: CLONIDINE 0.1MG TABLET PO PRN ×2 (02:00→13:15)
[2016-10-11] MEDS ORDERED: MAGNESIUM/ALUMINUM HYDROXIDE/SIMETHICONE 30ML UDC PO PRN ×2 (02:00→13:15)
[2016-10-11] MEDS ORDERED: IPRATROPIUM/ALBUTEROL 0.5-3(2.5)MG/3ML NEB INH PRN ×2 (02:00→13:30)
[2016-10-11] MEDS ORDERED: GUAIFENESIN 200MG/10ML SUGAR FREE UDC PO PRN ×2 (02:00→13:30)
[2016-10-11] MEDS ORDERED: ENOXAPARIN 40MG/0.4ML SYR SUBCUT SCH (02:00)
[2016-10-11] MEDS ORDERED: DIPHENHYDRAMINE 50MG/ML VIAL IV PRN ×2 (02:00→13:15)
[2016-10-11] MEDS ORDERED: DOCUSATE SODIUM 100MG CAPSULE PO PRN ×2 (02:00→13:15)
[2016-10-11] MEDS ORDERED: LORAZEPAM 2MG/ML CPJ IV PRN ×2 (02:00→13:30)
[2016-10-11] MEDS ORDERED: NA PHOS,M-B/NA PHOS,DI-BA ENEMA 118ML PR PRN (02:00)
[2016-10-11] MEDS ORDERED: ONDANSETRON HCL 4MG/2ML VIAL IV PRN ×2 (02:00→13:13)
[2016-10-11] MEDS ORDERED: HYDROMORPHONE HCL/PF 2MG/ML CPJ IV PRN ×3 (02:00→13:30)
[2016-10-11] MEDS ORDERED: HYDROCODONE/ACETAMINOPHEN 10/325MG TABLET PO PRN ×2 (02:00→13:15)
[2016-10-11] MEDS ORDERED: IOHEXOL-300 100 ML BOTTLE ONE (06:00)
[2016-10-11] MEDS ORDERED: SODIUM CHLORIDE 0.9% 10ML VIAL ONE (06:00)
[2016-10-11] MEDS ORDERED: ENOXAPARIN 30MG/0.3ML SYR SUBCUT SCH ×2 (09:00→14:00)
[2016-10-11 14:27] VITALS: BP 170/126
[2016-10-11 15:18] LABS: AMYLASE 492 IU/L (25-115)
[2017-01-11] MEDS ORDERED: NIFE60TA77 PO (22:51)
== END 2016-10-11 17:20 | disposition left against medical advice (07) | DRG 282 ==
LOC: ER 18:27 → 5EST 10-11 00:46 → EDBEDREQ 10-11 01:42 → ENRESERV 10-11 08:34 → ER 10-11 08:46
PROVIDERS: ADMIT Internal Medicine; ATTEND Internal Medicine
PROC: 5A1D00Z (ICD-10-PCS; principal; 2016-10-11)
DX: K85.90 Acute pancreatitis without necrosis or infection, unspecified (principal); E11.22 Type 2 diabetes mellitus with diabetic chronic kidney disease; E46 Unspecified protein-calorie malnutrition; N18.6 End stage renal disease; I12.0 Hypertensive chronic kidney disease with stage 5 chronic kidney disease or end stage renal disease; E86.0 Dehydration; D64.9 Anemia, unspecified; E87.5 Hyperkalemia; J45.909 Unspecified asthma, uncomplicated; N28.1 Cyst of kidney, acquired; N40.0 Benign prostatic hyperplasia without lower urinary tract symptoms; F19.10 Other psychoactive substance abuse, uncomplicated; E87.8 Other disorders of electrolyte and fluid balance, not elsewhere classified; Z53.21 Procedure and treatment not carried out due to patient leaving prior to being seen by health care provider; Z91.19 Patient's noncompliance with other medical treatment and regimen; Z99.2 Dependence on renal dialysis; I25.2 Old myocardial infarction; Z68.1 Body mass index [BMI] 19.9 or less, adult; K59.00 Constipation, unspecified
CPT/HCPCS: 36415; 36430; 74177; 80048; 80053; 80076; 81001; 82150; 83690; 84478; 84484; 85025; 85610; 86850; 86900; 86920; 93005; 96361; 96374; 96375; 96376; 99285; A4216; C9113; J1170; J2270; J2405; J3490; J7030; J7040; J7050; P9016; Q9967

== ENCOUNTER 2016-10-16 16:46 | Emergency (ER) | payer OTHER ==
[~2016-10-16] VITALS: Ht 188 cm; Wt 85.0 kg
[~2016-10-16 16:46] MED LIST changes: +AMLO5TAB88; -AMLO5TAB88 PO; +CALC667C; -CALC667C PO; +CARV25TA47; -CARV25TA47 PO; +CLON0.1T; -CLON0.1T PO; +FOLI0.8T23; -FOLI0.8T23 PO; +HYDR-3927; -HYDR-4001 PO; +LOSA50TA20; -LOSA50TA20 PO; +TAMS0.4C31; -TAMS0.4C31 PO
[2016-10-16] MEDS ORDERED: MORPHINE SULFATE 4 MG/ML CPJ (NOT FOR IM USE) IV STA (17:45)
[2016-10-16] MEDS ORDERED: FAMOTIDINE 20MG/2ML VIAL IV STA (17:45)
[2016-10-16] MEDS ORDERED: SODIUM CHLORIDE 0.9% 1,000 ML IV ONE (17:45)
[2016-10-16] MEDS ORDERED: ONDANSETRON HCL 4MG/2ML VIAL IV STA (17:45)
[2016-10-16 18:13] LABS: BASOPHILS % 1.3 % (0.0-2.0); EOSINOPHILS % 0.4 % (0.0-5.0); HEMATOCRIT. 36.3 % (42.0-52.0); HEMOGLOBIN. 12.1 g/dL (14.0-18.0); LYMPHOCYTES % 23.7 % (20.0-50.0); MEAN CORPUSCULAR HEMOGLOBIN 27.8 pg (28.0-32.0); MEAN CORPUSCULAR VOLUME 83.4 fL (80.0-94.0); MEAN PLATELET VOLUME 7.5 fl (7.4-10.4); MONOCYTES % 6.3 % (2.0-8.0); NEUTROPHILS % 68.3 % (40.0-76.0); PLATELET 309 x1000/uL (130-400); RED BLOOD CELL COUNT 4.35 mill/uL (4.7-6.1); RED CELL DISTRIBUTION WIDTH 18.5 % (11.6-14.6)
[2016-10-16 18:16] LABS: INR 1.1
[2016-10-16 18:22] LABS: CARBON DIOXIDE 25 mEq/L (21-32); CHLORIDE 95 mEq/L (98-107)
[2016-10-16] MEDS ORDERED: SODIUM POLYSTYRENE SULFONATE 15 G/60 ML BOT PO ONE (18:45)
[2016-10-16] MEDS ORDERED: CLONIDINE 0.2MG TABLET PO ONE (20:30)
[2016-10-16] MEDS ORDERED: HYDROCODONE/ACETAMINOPHEN 5/325MG TABLET PO ONE (23:15)
[2016-10-17] MEDS ORDERED: INSULIN REGULAR (HUMULIN R) 300UNITS/3ML IV NR (00:15)
[2016-10-17] MEDS ORDERED: DEXTROSE 50% WATER 50ML SYRINGE IV NR (00:15)
[2016-10-17] MEDS ORDERED: SODIUM BICARBONATE 8.4% 1 MEQ/ML 50ML SYR IV NR (00:15)
[2016-10-17] MEDS ORDERED: SODIUM POLYSTYRENE SULFONATE 15 G/60 ML BOT PO NR (00:15)
[2016-10-17 02:15] VITALS: BP 140/93
== END 2016-10-17 02:40 | disposition home or self-care (01) ==
LOC: ER 16:49
DX: R10.84 Generalized abdominal pain (principal); E87.6 Hypokalemia; I12.0 Hypertensive chronic kidney disease with stage 5 chronic kidney disease or end stage renal disease; N18.6 End stage renal disease; Z99.2 Dependence on renal dialysis
CPT/HCPCS: 36415; 71010; 80053; 82962; 83690; 84132; 85025; 85610; 93005; 96361; 96374; 96375; 99291; J1815; J2270; J2405; J3490; J7030; Z7610

== ENCOUNTER 2016-10-18 22:19 | Inpatient (IN) | payer OTHER ==
[~2016-10-18] VITALS: Ht 180.3 cm; Wt 67.1 kg
[2016-10-18] MEDS ORDERED: MORPHINE SULFATE 2 MG/ML CPJ (NOT FOR IM USE) IV STA (23:06)
[2016-10-18 23:18] LABS: CHLORIDE 93 mEq/L (98-107)
[2016-10-18 23:23] LABS: CARBON DIOXIDE 26 mEq/L (21-32); ETHANOL BLOOD < 10 mg/dL; INR 1.1; PROTHROMBIN TIME 11.6 sec
[2016-10-18 23:25] LABS: BASOPHILS % 0.9 % (0.0-2.0); HEMATOCRIT. 32.9 % (42.0-52.0); HEMOGLOBIN. 10.9 g/dL (14.0-18.0); LYMPHOCYTES % 26.5 % (20.0-50.0); MEAN CORPUSCULAR HEMOGLOBIN 27.4 pg (28.0-32.0); MEAN PLATELET VOLUME 7.6 fl (7.4-10.4); MONOCYTES % 11.7 % (2.0-8.0); NEUTROPHILS % 58.9 % (40.0-76.0); PLATELET 283 x1000/uL (130-400); RED BLOOD CELL COUNT 3.97 mill/uL (4.7-6.1); RED CELL DISTRIBUTION WIDTH 17.9 % (11.6-14.6)
[2016-10-18 23:30] LABS: TROPONIN I 0.02 ng/mL (0.00-0.04)
[2016-10-19] VITALS (8 sets, daily range): BP systolic 140–196; BP diastolic 95–122
[2016-10-19 04:38] LABS: *AMPHETAMINES SCREEN URINE NEGATIVE (NEGATIVE); *BARBITURATES SCREEN URINE NEGATIVE (NEGATIVE); *BENZODIAZEPINES SCREEN URINE NEGATIVE (NEGATIVE); *COCAINE SCREEN URINE NEGATIVE (NEGATIVE); CANNABINOID URINE SCREEN PRESUMTIVE POSITIVE (NEGATIVE); METHADONE URINE SCREEN NEGATIVE (NEGATIVE); OPIATES URINE SCREEN PRESUMTIVE POSITIVE (NEGATIVE); PHENCYCLIDINE URINE SCREEN NEGATIVE (NEGATIVE)
[2016-10-19] MEDS ORDERED: ONDANSETRON HCL 4MG/2ML VIAL IV ONE (05:00)
[2016-10-19] MEDS ORDERED: ONDANSETRON HCL 4MG/2ML VIAL IV PRN (09:30)
[2016-10-19] MEDS ORDERED: DEXTROSE 50% WATER 50ML SYRINGE IV PRN (09:30)
[2016-10-19] MEDS ORDERED: CLONIDINE 0.1MG TABLET PO PRN (09:30)
[2016-10-19] MEDS ORDERED: HYDROCODONE/ACETAMINOPHEN 10/325MG TABLET PO PRN (09:30)
[2016-10-19] MEDS ORDERED: ACETAMINOPHEN 325MG TABLET PO PRN (09:30)
[2016-10-19] MEDS ORDERED: FOLIC ACID 1MG TABLET PO SCH (10:00)
[2016-10-19] MEDS ORDERED: BLOOD SUGAR DIAGNOSTIC STRIP TEST SCH (12:10)
[2016-10-19 12:18] LABS: INR 1.1; PARTIAL THROMBOPLASTIN TIME 31.2 sec (24.0-34.0)
[2016-10-19] MEDS ORDERED: INSULIN LISPRO 100 UNITS/ML SUBCUT SCH (12:40)
[2016-10-19] MEDS ORDERED: SODIUM BICARBONATE 4% (2.4MEQ) 5ML VIAL IV ONE (13:39)
[2016-10-19] MEDS ORDERED: LIDOCAINE HCL 1% 20ML VIAL (Pyxis) INJ ONE (13:39)
[2016-10-19] MEDS ORDERED: HEPARIN 1000 UNITS/ML 10ML ONE (13:40)
[2016-10-19] MEDS ORDERED: CEFAZOLIN 1000MG PREMIX 50 ML IV ONE ×2 (13:49→14:15)
[2016-10-19] MEDS ORDERED: FENTANYL CITRATE/PF 50MCG/ML 2ML VIAL ONE (13:55)
[2016-10-19] MEDS ORDERED: FENTANYL CITRATE/PF 50MCG/ML 2ML VIAL IV NR (14:15)
== END 2016-10-19 15:00 | disposition left against medical advice (07) | DRG 192 ==
LOC: ER 23:01 → 8WST 10-19 03:02 → EDBEDREQ 10-19 03:07
PROVIDERS: ADMIT Internal Medicine; ATTEND Internal Medicine
PROC: 0JH63XZ Insertion of Tunneled Vascular Access Device into Chest Subcutaneous Tissue and Fascia, Percutaneous Approach (ICD-10-PCS; principal; 2016-10-19)
PROC: B2141ZZ Fluoroscopy of Right Heart using Low Osmolar Contrast (ICD-10-PCS; 2016-10-19)
PROC: 02H633Z Insertion of Infusion Device into Right Atrium, Percutaneous Approach (ICD-10-PCS; 2016-10-19)
PROC: B244ZZZ Ultrasonography of Right Heart (ICD-10-PCS; 2016-10-19)
DX: T82.42XA Displacement of vascular dialysis catheter, initial encounter (principal); E44.0 Moderate protein-calorie malnutrition; N18.6 End stage renal disease; I12.0 Hypertensive chronic kidney disease with stage 5 chronic kidney disease or end stage renal disease; E87.1 Hypo-osmolality and hyponatremia; Y84.1 Kidney dialysis as the cause of abnormal reaction of the patient, or of later complication, without mention of misadventure at the time of the procedure; E87.5 Hyperkalemia; Z53.21 Procedure and treatment not carried out due to patient leaving prior to being seen by health care provider; D63.8 Anemia in other chronic diseases classified elsewhere; F17.210 Nicotine dependence, cigarettes, uncomplicated; Z82.49 Family history of ischemic heart disease and other diseases of the circulatory system; Z99.2 Dependence on renal dialysis; Z79.899 Other long term (current) drug therapy; Z71.6 Tobacco abuse counseling; Y92.89 Other specified places as the place of occurrence of the external cause; Z91.19 Patient's noncompliance with other medical treatment and regimen; Z68.20 Body mass index [BMI] 20.0-20.9, adult
CPT/HCPCS: 36415; 36558; 71010; 76937; 77001; 80053; 80305; 83735; 84484; 85025; 85610; 85730; 87040; 93005; 96374; 99285; 99406; C1750; G0482; J0690; J1644; J2270; J3010; J3490

== ENCOUNTER 2016-10-28 13:03 | Inpatient (IN) | payer OTHER ==
[~2016-10-28] VITALS: Ht 180.3 cm; Wt 67.1 kg
[~2016-10-28 13:03] MED LIST changes: -AMLO5TAB88; +AMLO5TAB88 PO; -CALC667C; +CALC667C PO; -CARV25TA47; +CARV25TA47 PO; -CLON0.1T; +CLON0.1T PO; -FOLI0.8T23; +FOLI0.8T23 PO; -HYDR-3927; +HYDR-4001 PO; -LOSA50TA20; +LOSA50TA20 PO; -TAMS0.4C31; +TAMS0.4C31 PO
[2016-10-28] MEDS ORDERED: MORPHINE SULFATE 4 MG/ML CPJ (NOT FOR IM USE) IV STA (14:13)
[2016-10-28] MEDS ORDERED: SODIUM CHLORIDE 0.9% 1,000 ML IV ONE (14:13)
[2016-10-28] MEDS ORDERED: ONDANSETRON HCL 4MG/2ML VIAL IV STA (14:13)
[2016-10-28 14:42] LABS: BASOPHILS % 0.9 % (0.0-2.0); CHLORIDE 97 mEq/L (98-107); EOSINOPHILS % 0.5 % (0.0-5.0); HEMATOCRIT. 30.7 % (42.0-52.0); LYMPHOCYTES % 18.3 % (20.0-50.0); MEAN CORPUSCULAR HEMOGLOBIN 27.6 pg (28.0-32.0); MEAN CORPUSCULAR VOLUME 85.1 fL (80.0-94.0); MEAN PLATELET VOLUME 7.3 fl (7.4-10.4); MONOCYTES % 4.8 % (2.0-8.0); NEUTROPHILS % 75.5 % (40.0-76.0); PLATELET 255 x1000/uL (130-400); RED BLOOD CELL COUNT 3.61 mill/uL (4.7-6.1); RED CELL DISTRIBUTION WIDTH 18.6 % (11.6-14.6)
[2016-10-28 14:46] LABS: INR 1.1; PARTIAL THROMBOPLASTIN TIME 30.6 sec (23.4-31.0); PROTHROMBIN TIME 11.3 sec (9.4-11.6)
[2016-10-28 14:51] LABS: CARBON DIOXIDE 29 mEq/L (21-32)
[2016-10-28] MEDS ORDERED: HYDRALAZINE 20MG/ML VIAL IV ONE (16:15)
[2016-10-28] MEDS ORDERED: MORPHINE SULFATE 4 MG/ML CPJ (NOT FOR IM USE) IV ONE (17:45)
[2016-10-28] MEDS ORDERED: ONDANSETRON HCL 4MG/2ML VIAL IV ONE (17:45)
[2016-10-28] MEDS ORDERED: IPRATROPIUM/ALBUTEROL 0.5-3(2.5)MG/3ML NEB INH PRN (18:45)
[2016-10-28] MEDS ORDERED: ACETAMINOPHEN 325MG TABLET PO PRN (18:45)
[2016-10-28] MEDS ORDERED: CLONIDINE 0.1MG TABLET PO PRN (18:45)
[2016-10-28] MEDS ORDERED: HYDROCODONE/ACETAMINOPHEN 5/325MG TABLET PO PRN (18:45)
[2016-10-28] MEDS ORDERED: MAGNESIUM/ALUMINUM HYDROXIDE/SIMETHICONE 30ML UDC PO PRN (18:45)
[2016-10-28] MEDS ORDERED: ONDANSETRON HCL 4MG/2ML VIAL IV PRN (18:45)
[2016-10-28] MEDS ORDERED: CEFTRIAXONE 1 G PREMIX 50 ML IV SCH (22:00)
[2016-10-28] MEDS ORDERED: SODIUM POLYSTYRENE SULFONATE 15 G/60 ML BOT PO NR (22:30)
[2016-10-28] MEDS ORDERED: HYDRALAZINE 20MG/ML VIAL IV PRN (22:30)
[2016-10-28] MEDS: NIFEDIPINE XL 60MG TAB PO SCH (22:49)
[2016-10-28 23:21] LABS: CREATINE KINASE MB FRACTION 1.6 ng/mL (0.5-3.6); TROPONIN I 0.03 ng/mL (0.00-0.04)
[2016-10-29] MEDS: METRONIDAZOLE 500 MG PREMIX 100 ML IV SCH ×2 (00:21→11:17)
[2016-10-29] MEDS ORDERED: CLONIDINE 0.2MG TABLET PO SCH (00:30)
[2016-10-29 07:10] LABS: BASOPHILS % 0.5 % (0.0-2.0); EOSINOPHILS % 0.2 % (0.0-5.0); HEMATOCRIT. 29.8 % (42.0-52.0); HEMOGLOBIN. 9.6 g/dL (14.0-18.0); LYMPHOCYTES % 14.4 % (20.0-50.0); MEAN CORPUSCULAR HEMOGLOBIN 27.2 pg (28.0-32.0); MEAN CORPUSCULAR VOLUME 84.7 fL (80.0-94.0); MEAN PLATELET VOLUME 7.3 fl (7.4-10.4); MONOCYTES % 7.8 % (2.0-8.0); NEUTROPHILS % 77.1 % (40.0-76.0); PLATELET 265 x1000/uL (130-400); RED BLOOD CELL COUNT 3.52 mill/uL (4.7-6.1); RED CELL DISTRIBUTION WIDTH 18.2 % (11.6-14.6)
[2016-10-29 07:55] LABS: CREATINE KINASE MB FRACTION 1.3 ng/mL (0.5-3.6); TROPONIN I 0.03 ng/mL (0.00-0.04)
[2016-10-29] MEDS: NIFEDIPINE XL 60MG TAB PO SCH (10:12)
[2016-10-29 14:55] LABS: CLARITY URINE CLEAR (CLEAR); COLOR URINE YELLOW (YELLOW); KETONES URINE NEGATIVE (NEGATIVE); LEUKOCYTE ESTERASE URINE TRACE (NEGATIVE); NITRITE URINE NEGATIVE (NEGATIVE); OCCULT BLOOD URINE TRACE (NEGATIVE); PH URINE >=9.0 (4.5-8.0); PROTEIN URINE 4+ (NEGATIVE); SPECIFIC GRAVITY URINE 1.012 (1.005-1.030); UROBILINOGEN URINE 0.2 E.U./dL (0.2-1.0)
[2016-10-29 15:12] LABS: *AMPHETAMINES SCREEN URINE NEGATIVE (NEGATIVE); *BARBITURATES SCREEN URINE NEGATIVE (NEGATIVE); *BENZODIAZEPINES SCREEN URINE NEGATIVE (NEGATIVE); *COCAINE SCREEN URINE NEGATIVE (NEGATIVE); CANNABINOID URINE SCREEN PRESUMTIVE POSITIVE (NEGATIVE); METHADONE URINE SCREEN NEGATIVE (NEGATIVE); OPIATES URINE SCREEN PRESUMTIVE POSITIVE (NEGATIVE); PHENCYCLIDINE URINE SCREEN NEGATIVE (NEGATIVE)
[2016-10-29 16:00] VITALS: BP 159/96
[2016-10-29] MEDS ORDERED: METRONIDAZOLE 500 MG PREMIX 100 ML IV SCH (21:00)
[2016-10-29] MEDS ORDERED: CEFTRIAXONE 1 G PREMIX 50 ML IV SCH (21:00)
[2017-01-11] MEDS ORDERED: NIFE60TA77 PO (22:51)
== END 2016-10-29 18:40 | disposition left against medical advice (07) | DRG 282 ==
LOC: ER 13:53 → 6WST 17:35 → ENRESERV 18:12
PROVIDERS: ADMIT Internal Medicine; ATTEND Internal Medicine
PROC: 5A1D00Z (ICD-10-PCS; principal; 2016-10-29)
DX: K85.10 Biliary acute pancreatitis without necrosis or infection (principal); E11.22 Type 2 diabetes mellitus with diabetic chronic kidney disease; N18.6 End stage renal disease; I12.0 Hypertensive chronic kidney disease with stage 5 chronic kidney disease or end stage renal disease; E87.5 Hyperkalemia; D63.8 Anemia in other chronic diseases classified elsewhere; F17.210 Nicotine dependence, cigarettes, uncomplicated; K52.9 Noninfective gastroenteritis and colitis, unspecified; N40.0 Benign prostatic hyperplasia without lower urinary tract symptoms; E03.9 Hypothyroidism, unspecified; Z79.899 Other long term (current) drug therapy; Z82.49 Family history of ischemic heart disease and other diseases of the circulatory system; Z99.2 Dependence on renal dialysis; Z91.19 Patient's noncompliance with other medical treatment and regimen; E44.1 Mild protein-calorie malnutrition
CPT/HCPCS: 36415; 74176; 80048; 80053; 80061; 80305; 81001; 82550; 82553; 83690; 84443; 84484; 85025; 85610; 85730; 87040; 93005; 93970; 96361; 96374; 96375; 96376; 99285; J0360; J0696; J2270; J2405; J3490; J7030; J7050

== ENCOUNTER 2016-12-15 22:00 | Emergency (ER) | payer OTHER ==
[~2016-12-15] VITALS: Ht 180.3 cm; Wt 61.0 kg
[2016-12-15] MEDS ORDERED: MORPHINE SULFATE 4 MG/ML CPJ (NOT FOR IM USE) IV STA (23:23)
[2016-12-15] MEDS ORDERED: ONDANSETRON HCL 4MG/2ML VIAL IV STA (23:23)
[2016-12-15 23:54] LABS: BASOPHILS % 0.4 % (0.0-2.0); EOSINOPHILS % 1.2 % (0.0-5.0); HEMATOCRIT. 31.9 % (42.0-52.0); HEMOGLOBIN. 10.3 g/dL (14.0-18.0); LYMPHOCYTES % 12.5 % (20.0-50.0); MEAN CORPUSCULAR HEMOGLOBIN 28.8 pg (28.0-32.0); MEAN CORPUSCULAR VOLUME 89.8 fL (80.0-94.0); MEAN PLATELET VOLUME 7.3 fl (7.4-10.4); MONOCYTES % 9.1 % (2.0-8.0); NEUTROPHILS % 76.8 % (40.0-76.0); PLATELET 203 x1000/uL (130-400); RED BLOOD CELL COUNT 3.56 mill/uL (4.7-6.1); RED CELL DISTRIBUTION WIDTH 21.2 % (11.6-14.6)
[2016-12-16 00:10] LABS: CARBON DIOXIDE 26 mEq/L (21-32); CHLORIDE 98 mEq/L (98-107); TROPONIN I 0.02 ng/mL (0.00-0.04)
[2016-12-16] MEDS ORDERED: CLONIDINE 0.3MG TABLET PO ONE (02:30)
[2016-12-16 07:05] VITALS: BP 162/93
== END 2016-12-16 07:58 | disposition left against medical advice (07) ==
LOC: ER 23:11 → EDBEDREQ 12-16 02:27 → ER 12-16 07:58 → CANBEDREQ 12-16 16:02
DX: N19 Unspecified kidney failure (principal); I12.0 Hypertensive chronic kidney disease with stage 5 chronic kidney disease or end stage renal disease; N18.6 End stage renal disease; E11.22 Type 2 diabetes mellitus with diabetic chronic kidney disease; Z99.2 Dependence on renal dialysis
CPT/HCPCS: 36415; 71010; 74176; 80053; 83690; 84484; 85025; 93005; 96374; 96375; 99285; J2270; J2405; Z7610

== ENCOUNTER 2016-12-26 08:33 | Inpatient (IN) | payer OTHER ==
[2016-12-26] VITALS (26 sets, daily range): BP systolic 142–263; BP diastolic 107–169
[~2016-12-26] VITALS: Ht 175.3 cm; Wt 51.3 kg
[2016-12-26] MEDS ORDERED: ONDANSETRON HCL 4MG/2ML VIAL IV STA (08:50)
[2016-12-26 09:22] LABS: EOSINOPHILS % 0.8 % (0.0-5.0); HEMATOCRIT. 39.6 % (42.0-52.0); HEMOGLOBIN. 12.8 g/dL (14.0-18.0); MEAN CORPUSCULAR HEMOGLOBIN 29.4 pg (28.0-32.0); MEAN PLATELET VOLUME 7.3 fl (7.4-10.4); MONOCYTES % 3.9 % (2.0-8.0); NEUTROPHILS % 75.3 % (40.0-76.0); PLATELET 291 x1000/uL (130-400); RED BLOOD CELL COUNT 4.36 mill/uL (4.7-6.1); RED CELL DISTRIBUTION WIDTH 20.5 % (11.6-14.6)
[2016-12-26 09:28] LABS: CARBON DIOXIDE 28 mEq/L (21-32); CHLORIDE 101 mEq/L (98-107)
[2016-12-26] MEDS ORDERED: SODIUM BICARBONATE 8.4% 1 MEQ/ML 50ML SYR IV ONE (10:00)
[2016-12-26] MEDS ORDERED: CALCIUM CHLORIDE 1GM/10ML SYR IV ONE ×2 (10:00→10:06)
[2016-12-26] MEDS ORDERED: DEXTROSE 50% WATER 50ML SYRINGE IV ONE ×2 (10:00→12:16)
[2016-12-26] MEDS ORDERED: FENTANYL CITRATE/PF 50MCG/ML 2ML VIAL IV ONE (10:00)
[2016-12-26] MEDS ORDERED: DIPHENHYDRAMINE 50MG/ML VIAL IV ONE (10:00)
[2016-12-26] MEDS ORDERED: INSULIN REGULAR (HUMULIN R) 300UNITS/3ML IV ONE (10:00)
[2016-12-26] MEDS ORDERED: METOCLOPRAMIDE HCL 10MG/2ML VIAL IV ONE (10:00)
[2016-12-26] MEDS ORDERED: ALBUTEROL (0.083%) 2.5MG/3ML NEB HHN ONE (10:00)
[2016-12-26] MEDS ORDERED: HYDRALAZINE 20MG/ML VIAL IV ONE (11:30)
[2016-12-26] MEDS ORDERED: LORAZEPAM 2MG/ML CPJ IV ONE (13:15)
[2016-12-26] MEDS ORDERED: DILTIAZEM 125MG in DEXTROSE 5% WATER 125ML IV PRN (13:15)
[2016-12-26] MEDS ORDERED: ONDANSETRON HCL 4MG/2ML VIAL IV PRN (16:00)
[2016-12-26] MEDS ORDERED: IPRATROPIUM/ALBUTEROL 0.5-3(2.5)MG/3ML NEB INH PRN (16:00)
[2016-12-26] MEDS ORDERED: ACETAMINOPHEN 325MG TABLET PO PRN (16:00)
[2016-12-26] MEDS ORDERED: HYDROCODONE/ACETAMINOPHEN 5/325MG TABLET PO PRN (16:00)
[2016-12-26] MEDS ORDERED: MAGNESIUM/ALUMINUM HYDROXIDE/SIMETHICONE 30ML UDC PO PRN (16:00)
[2016-12-26] MEDS ORDERED: CLONIDINE 0.1MG TABLET PO PRN (16:00)
[2016-12-26] MEDS ORDERED: NICARDIPINE 100 MG in SODIUM CHLORIDE 0.9% 60 ML IV PRN (19:00)
[2016-12-26] MEDS ORDERED: DEXTROSE 50% WATER 50ML SYRINGE IV PRN (22:30)
[2016-12-26 23:42] LABS: CREATINE KINASE MB FRACTION 2.1 ng/mL (0.5-3.6); TROPONIN I 0.04 ng/mL (0.00-0.04)
[2016-12-27] VITALS (25 sets, daily range): BP systolic 112–208; BP diastolic 75–130
[2016-12-27 06:12] LABS: BASOPHILS % 0.3 % (0.0-2.0); HEMATOCRIT. 43.6 % (42.0-52.0); HEMOGLOBIN. 14.3 g/dL (14.0-18.0); LYMPHOCYTES % 7.5 % (20.0-50.0); MEAN CORPUSCULAR HEMOGLOBIN 29.7 pg (28.0-32.0); MEAN CORPUSCULAR VOLUME 90.7 fL (80.0-94.0); MEAN PLATELET VOLUME 6.9 fl (7.4-10.4); MONOCYTES % 4.7 % (2.0-8.0); NEUTROPHILS % 87.5 % (40.0-76.0); PLATELET 261 x1000/uL (130-400); RED BLOOD CELL COUNT 4.81 mill/uL (4.7-6.1); RED CELL DISTRIBUTION WIDTH 20.6 % (11.6-14.6)
[2016-12-27] MEDS ORDERED: BLOOD SUGAR DIAGNOSTIC STRIP TEST SCH (06:30)
[2016-12-27 06:38] LABS: TROPONIN I 0.05 ng/mL (0.00-0.04)
[2016-12-27] MEDS ORDERED: INSULIN LISPRO 100 UNITS/ML SUBCUT SCH (07:00)
[2016-12-27] MEDS ORDERED: NIFEDIPINE XL 90MG TAB PO SCH (08:00)
[2016-12-27] MEDS ORDERED: ATORVASTATIN CALCIUM 10MG TABLET PO SCH (21:00)
== END 2016-12-27 08:48 | disposition left against medical advice (07) | DRG 470 ==
LOC: ER 08:33 → 5EST 10:43 → CANRESERV 12:38 → ENRESERV 12:38 → 5EST 18:34 → MICUSO 20:18
PROVIDERS: ADMIT Internal Medicine; ATTEND Internal Medicine
PROC: 5A1D70Z Performance of Urinary Filtration, Intermittent, Less than 6 Hours Per Day (ICD-10-PCS; principal; 2016-12-26)
DX: I12.0 Hypertensive chronic kidney disease with stage 5 chronic kidney disease or end stage renal disease (principal); E11.22 Type 2 diabetes mellitus with diabetic chronic kidney disease; N18.6 End stage renal disease; E46 Unspecified protein-calorie malnutrition; E87.5 Hyperkalemia; D64.9 Anemia, unspecified; F12.10 Cannabis abuse, uncomplicated; Z53.21 Procedure and treatment not carried out due to patient leaving prior to being seen by health care provider; F17.210 Nicotine dependence, cigarettes, uncomplicated; N40.0 Benign prostatic hyperplasia without lower urinary tract symptoms; Z91.19 Patient's noncompliance with other medical treatment and regimen; Z99.2 Dependence on renal dialysis; Z68.1 Body mass index [BMI] 19.9 or less, adult; Z79.899 Other long term (current) drug therapy; Z91.15 Patient's noncompliance with renal dialysis
CPT/HCPCS: 36415; 80048; 80053; 80061; 82550; 82553; 82962; 83690; 83735; 84484; 85025; 87040; 93005; 94640; 96365; 99285; J0360; J1200; J1815; J2060; J2405; J2765; J3010; J3490; J7030; J7050; J7060; J7611

== ENCOUNTER 2016-12-30 08:28 | Inpatient (IN) | payer OTHER ==
[~2016-12-30] VITALS: Ht 177.8 cm; Wt 54.4 kg
[2016-12-30] VITALS (23 sets, daily range): BP systolic 126–190; BP diastolic 83–140
[2016-12-30] MEDS ORDERED: CLONIDINE 0.3MG TABLET PO NR (09:53)
[2016-12-30] MEDS ORDERED: ONDANSETRON HCL 4MG/2ML VIAL IV NR (09:54)
[2016-12-30] MEDS ORDERED: MORPHINE SULFATE 10 MG/ML CPJ IV NR (09:55)
[2016-12-30 10:05] LABS: PARTIAL THROMBOPLASTIN TIME 30.1 sec (23.4-31.0); PROTHROMBIN TIME 10.7 sec (9.4-11.6)
[2016-12-30 10:07] LABS: BASOPHILS % 1.7 % (0.0-2.0); EOSINOPHILS % 0.5 % (0.0-5.0); HEMATOCRIT. 40.1 % (42.0-52.0); HEMOGLOBIN. 12.8 g/dL (14.0-18.0); LYMPHOCYTES % 21.7 % (20.0-50.0); MEAN CORPUSCULAR HEMOGLOBIN 28.8 pg (28.0-32.0); MEAN CORPUSCULAR VOLUME 90.4 fL (80.0-94.0); MEAN PLATELET VOLUME 7.5 fl (7.4-10.4); NEUTROPHILS % 72.1 % (40.0-76.0); PLATELET 253 x1000/uL (130-400); RED BLOOD CELL COUNT 4.43 mill/uL (4.7-6.1); RED CELL DISTRIBUTION WIDTH 19.3 % (11.6-14.6)
[2016-12-30] MEDS ORDERED: MORPHINE SULFATE 10 MG/ML CPJ ONE (10:09)
[2016-12-30 10:10] LABS: TROPONIN I 0.05 ng/mL (0.00-0.04)
[2016-12-30] MEDS ORDERED: ONDANSETRON HCL 4MG/2ML VIAL ONE (10:10)
[2016-12-30] MEDS ORDERED: CLONIDINE 0.3MG TABLET ONE (10:10)
[2016-12-30] MEDS ORDERED: INSULIN REGULAR (HUMULIN R) 300UNITS/3ML IV ONE (10:30)
[2016-12-30] MEDS ORDERED: CALCIUM CHLORIDE 1,000 MG in DEXT 5% WATER 100 ML IV ONE (10:30)
[2016-12-30] MEDS ORDERED: SODIUM POLYSTYRENE SULFONATE 15 G/60 ML BOT PO ONE (10:30)
[2016-12-30] MEDS ORDERED: DEXTROSE 50% WATER 50ML SYRINGE IV ONE (10:30)
[2016-12-30] MEDS ORDERED: NICARDIPINE 100 MG in SODIUM CHLORIDE 0.9% 60 ML IV PRN ×3 (11:00→13:30)
[2016-12-30] MEDS ORDERED: ONDANSETRON HCL 4MG/2ML VIAL IV PRN (14:00)
[2016-12-30] MEDS ORDERED: ACETAMINOPHEN 325MG TABLET PO PRN (14:00)
[2016-12-30] MEDS ORDERED: DOCUSATE SODIUM 100MG CAPSULE PO PRN (14:00)
[2016-12-30] MEDS ORDERED: IPRATROPIUM/ALBUTEROL 0.5-3(2.5)MG/3ML NEB INH PRN (14:00)
[2016-12-30] MEDS ORDERED: CLONIDINE 0.1MG TABLET PO PRN (14:00)
[2016-12-30] MEDS ORDERED: MAGNESIUM/ALUMINUM HYDROXIDE/SIMETHICONE 30ML UDC PO PRN (14:00)
[2016-12-30] MEDS ORDERED: HYDROCODONE/ACETAMINOPHEN 5/325MG TABLET PO PRN (14:00)
[2016-12-30] MEDS ORDERED: HEPARIN SODIUM 1,000 UNIT/1ML VIAL IV NR (14:45)
[2016-12-30 17:44] LABS: CREATINE KINASE MB FRACTION 2.6 ng/mL (0.5-3.6); TROPONIN I 0.07 ng/mL (0.00-0.04)
[2016-12-31] MEDS ORDERED: NIFEDIPINE XL 60MG TAB PO SCH (09:00)
== END 2016-12-30 19:35 | disposition left against medical advice (07) | DRG 469 ==
LOC: ER 10:20 → CVICU 11:13 → EDBEDREQ 11:14 → ENRESERV 11:46
PROVIDERS: ADMIT Internal Medicine; ATTEND Internal Medicine
DX: N19 Unspecified kidney failure (principal); I12.0 Hypertensive chronic kidney disease with stage 5 chronic kidney disease or end stage renal disease; E11.22 Type 2 diabetes mellitus with diabetic chronic kidney disease; N18.6 End stage renal disease; N40.0 Benign prostatic hyperplasia without lower urinary tract symptoms; F14.90 Cocaine use, unspecified, uncomplicated; Z91.19 Patient's noncompliance with other medical treatment and regimen; Z87.891 Personal history of nicotine dependence; Z99.2 Dependence on renal dialysis; Z79.899 Other long term (current) drug therapy
CPT/HCPCS: 36415; 71010; 80048; 82550; 82553; 82962; 83690; 84484; 85025; 85610; 85730; 87040; 96365; 96375; 99285; J1644; J1815; J2270; J2405; J3490; J7030; J7050; J7060

== ENCOUNTER 2017-01-11 15:18 | Inpatient (IN) | payer OTHER ==
[~2017-01-11] VITALS: Ht 177.8 cm; Wt 44.0 kg
[2017-01-11] MEDS ORDERED: MORPHINE SULFATE 4 MG/ML CPJ (NOT FOR IM USE) IV STA (15:30)
[2017-01-11] MEDS ORDERED: ONDANSETRON HCL 4MG/2ML VIAL IV STA (15:30)
[2017-01-11] MEDS ORDERED: SODIUM CHLORIDE 0.9% 1,000 ML IV ONE (15:30)
[2017-01-11] MEDS ORDERED: HYDRALAZINE 20MG/ML VIAL IV ONE (15:45)
[2017-01-11 16:07] LABS: BASOPHILS % 1.1 % (0.0-2.0); EOSINOPHILS % 0.5 % (0.0-5.0); HEMOGLOBIN. 12.3 g/dL (14.0-18.0); LYMPHOCYTES % 19.7 % (20.0-50.0); MEAN CORPUSCULAR HEMOGLOBIN 28.7 pg (28.0-32.0); MEAN CORPUSCULAR VOLUME 88.6 fL (80.0-94.0); MEAN PLATELET VOLUME 7.5 fl (7.4-10.4); MONOCYTES % 6.1 % (2.0-8.0); NEUTROPHILS % 72.6 % (40.0-76.0); PLATELET 253 x1000/uL (130-400); RED BLOOD CELL COUNT 4.29 mill/uL (4.7-6.1)
[2017-01-11 16:10] LABS: PARTIAL THROMBOPLASTIN TIME 30.2 sec (23.4-31.0); PROTHROMBIN TIME 10.6 sec (9.4-11.6)
[2017-01-11 16:18] LABS: CARBON DIOXIDE 21 mEq/L (21-32); CHLORIDE 103 mEq/L (98-107)
[2017-01-11] MEDS ORDERED: SODIUM BICARBONATE 8.4% 1 MEQ/ML 50ML SYR IV ONE (16:30)
[2017-01-11] MEDS ORDERED: SODIUM POLYSTYRENE SULFONATE 15 G/60 ML BOT PO ONE (16:30)
[2017-01-11] MEDS ORDERED: INSULIN REGULAR (HUMULIN R) 300UNITS/3ML IV ONE (16:30)
[2017-01-11] MEDS ORDERED: ALBUTEROL (0.083%) 2.5MG/3ML NEB HHN ONE (16:30)
[2017-01-11] MEDS ORDERED: DEXTROSE 50% WATER 50ML SYRINGE IV ONE (16:30)
[2017-01-11] MEDS ORDERED: ALBUTEROL (0.5%) 2.5MG/0.5ML NEB HHN ONE (16:54)
[2017-01-11] MEDS ORDERED: ALBUTEROL (0.083%) 2.5MG/3ML NEB ONE (16:55)
[2017-01-11] MEDS ORDERED: METRONIDAZOLE 500 MG PREMIX 100 ML IV ONE (17:00)
[2017-01-11] MEDS ORDERED: LEVOFLOXACIN 750MG PREMIX 150 ML IV ONE (17:00)
[2017-01-11] MEDS ORDERED: CLONIDINE 0.2MG TABLET PO ONE (17:00)
[2017-01-11] MEDS ORDERED: MORPHINE SULFATE 4 MG/ML CPJ (NOT FOR IM USE) IV ONE (17:15)
[2017-01-11] MEDS ORDERED: ONDANSETRON HCL 4MG/2ML VIAL IV ONE (18:00)
[2017-01-11 19:24] LABS: CLARITY URINE CLEAR (CLEAR); COLOR URINE YELLOW (YELLOW); GLUCOSE URINE 1+ (NEGATIVE); KETONES URINE NEGATIVE (NEGATIVE); LEUKOCYTE ESTERASE URINE 1+ (NEGATIVE); NITRITE URINE NEGATIVE (NEGATIVE); OCCULT BLOOD URINE TRACE (NEGATIVE); PH URINE 8.5 (4.5-8.0); PROTEIN URINE 3+ (NEGATIVE); SPECIFIC GRAVITY URINE 1.011 (1.005-1.030); UROBILINOGEN URINE 0.2 E.U./dL (0.2-1.0)
[2017-01-11] MEDS ORDERED: DOCUSATE SODIUM 100MG CAPSULE PO PRN (19:30)
[2017-01-11] MEDS ORDERED: MAGNESIUM/ALUMINUM HYDROXIDE/SIMETHICONE 30ML UDC PO PRN (19:30)
[2017-01-11] MEDS ORDERED: HYDROCODONE/ACETAMINOPHEN 5/325MG TABLET PO PRN (19:30)
[2017-01-11] MEDS ORDERED: IPRATROPIUM/ALBUTEROL 0.5-3(2.5)MG/3ML NEB INH PRN (19:30)
[2017-01-11] MEDS ORDERED: ACETAMINOPHEN 325MG TABLET PO PRN (19:30)
[2017-01-11] MEDS ORDERED: ONDANSETRON HCL 4MG/2ML VIAL IV PRN (19:30)
[2017-01-11] MEDS ORDERED: CLONIDINE 0.1MG TABLET PO PRN (19:30)
[2017-01-11 20:15] LABS: *AMPHETAMINES SCREEN URINE NEGATIVE (NEGATIVE); *BARBITURATES SCREEN URINE NEGATIVE (NEGATIVE); *BENZODIAZEPINES SCREEN URINE NEGATIVE (NEGATIVE); *COCAINE SCREEN URINE NEGATIVE (NEGATIVE); CANNABINOID URINE SCREEN PRESUMTIVE POSITIVE (NEGATIVE); METHADONE URINE SCREEN NEGATIVE (NEGATIVE); OPIATES URINE SCREEN NEGATIVE (NEGATIVE); PHENCYCLIDINE URINE SCREEN NEGATIVE (NEGATIVE)
[2017-01-11 20:30] VITALS: BP 166/108
[2017-01-11] MEDS ORDERED: HYDRALAZINE 20MG/ML VIAL IV PRN (21:00)
[2017-01-11] MEDS ORDERED: DEXTROSE 50% WATER 50ML SYRINGE IV PRN (21:15)
[2017-01-11] MEDS: NIFEDIPINE XL 90MG TAB PO SCH (21:32)
[2017-01-11] MEDS ORDERED: NIFE60TA7 PO (22:51)
[2017-01-11 23:47] LABS: CREATINE KINASE MB FRACTION 1.3 ng/mL (0.5-3.6); TROPONIN I 0.03 ng/mL (0.00-0.04)
[2017-01-12] VITALS: BP 156/80
[2017-01-12 04:00] VITALS: BP 120/85
[2017-01-12 06:36] LABS: BASOPHILS % 0.8 % (0.0-2.0); EOSINOPHILS % 0.6 % (0.0-5.0); HEMATOCRIT. 36.8 % (42.0-52.0); LYMPHOCYTES % 11.4 % (20.0-50.0); MEAN CORPUSCULAR HEMOGLOBIN 28.3 pg (28.0-32.0); MEAN CORPUSCULAR VOLUME 86.7 fL (80.0-94.0); MEAN PLATELET VOLUME 7.9 fl (7.4-10.4); MONOCYTES % 2.6 % (2.0-8.0); NEUTROPHILS % 84.6 % (40.0-76.0); PLATELET 217 x1000/uL (130-400); RED BLOOD CELL COUNT 4.25 mill/uL (4.7-6.1); RED CELL DISTRIBUTION WIDTH 18.3 % (11.6-14.6)
[2017-01-12 07:06] LABS: CREATINE KINASE MB FRACTION 1.2 ng/mL (0.5-3.6); TROPONIN I 0.03 ng/mL (0.00-0.04)
[2017-01-12] MEDS ORDERED: BLOOD SUGAR DIAGNOSTIC STRIP TEST SCH (07:40)
[2017-01-12 08:00] VITALS: BP 135/90
[2017-01-12] MEDS ORDERED: INSULIN LISPRO 100 UNITS/ML SUBCUT SCH (08:10)
[2017-01-12] MEDS ORDERED: CALCIUM ACETATE 667MG CAPSULE PO SCH (08:10)
[2017-01-12] MEDS ORDERED: TAMSULOSIN HCL 0.4MG SR CAPSULE PO SCH (09:00)
[2017-01-12] MEDS ORDERED: CARVEDILOL 25MG TABLET PO SCH (09:00)
[2017-01-12] MEDS ORDERED: CLONIDINE 0.1MG TABLET PO SCH (09:00)
[2017-01-12] MEDS ORDERED: LOSARTAN POTASSIUM 50 MG TABLET PO SCH (09:00)
[2017-01-12] MEDS ORDERED: AMLODIPINE 5MG TABLET PO SCH (09:00)
[2017-01-12] MEDS ORDERED: FOLIC ACID/VITAMIN B COMP W-C TABLET PO SCH (09:00)
[2017-01-12] MEDS: NIFEDIPINE XL 90MG TAB PO SCH (09:27)
== END 2017-01-12 10:00 | disposition left against medical advice (07) | DRG 463 ==
LOC: ER 15:30 → EDBEDREQ 16:58 → ENRESERV 17:09 → 7WST 18:11 → EDBEDREQ 18:12 → EDBEDREQTM 18:12
PROVIDERS: ADMIT Internal Medicine; ATTEND Internal Medicine
DX: N39.0 Urinary tract infection, site not specified (principal); I12.0 Hypertensive chronic kidney disease with stage 5 chronic kidney disease or end stage renal disease; E11.22 Type 2 diabetes mellitus with diabetic chronic kidney disease; N18.6 End stage renal disease; D63.1 Anemia in chronic kidney disease; Z53.21 Procedure and treatment not carried out due to patient leaving prior to being seen by health care provider; F12.90 Cannabis use, unspecified, uncomplicated; Z99.2 Dependence on renal dialysis; Z79.899 Other long term (current) drug therapy; K52.9 Noninfective gastroenteritis and colitis, unspecified; I16.1 Hypertensive emergency
CPT/HCPCS: 36415; 71010; 74176; 80048; 80053; 80061; 80305; 81001; 82550; 82553; 82962; 83690; 84443; 84484; 85025; 85610; 85730; 86850; 86900; 87040; 87086; 93005; 94640; 96365; 96375; 99291; J0360; J1815; J1956; J2270; J2405; J3490; J7030; J7611

== ENCOUNTER 2017-02-12 11:53 | Emergency (ER) | payer OTHER ==
[~2017-02-12] VITALS: Ht 180.3 cm; Wt 80.0 kg
[~2017-02-12 11:53] MED LIST changes: +NIFE60TA77 PO
[2017-02-12] MEDS ORDERED: KETOROLAC 30MG/ML VIAL IV STA (12:11)
[2017-02-12] MEDS ORDERED: ONDANSETRON HCL 4MG/2ML VIAL IV STA (12:11)
[2017-02-12] MEDS ORDERED: FAMOTIDINE 20MG/2ML VIAL IV STA (12:11)
[2017-02-12 13:28] LABS: EOSINOPHILS % 0.9 % (0.0-5.0); HEMATOCRIT. 41.8 % (42.0-52.0); HEMOGLOBIN. 13.1 g/dL (14.0-18.0); LYMPHOCYTES % 12.6 % (20.0-50.0); MEAN CORPUSCULAR HEMOGLOBIN 27.8 pg (28.0-32.0); MEAN CORPUSCULAR VOLUME 88.2 fL (80.0-94.0); MEAN PLATELET VOLUME 6.9 fl (7.4-10.4); MONOCYTES % 7.1 % (2.0-8.0); NEUTROPHILS % 78.4 % (40.0-76.0); PLATELET 199 x1000/uL (130-400); RED BLOOD CELL COUNT 4.74 mill/uL (4.7-6.1); RED CELL DISTRIBUTION WIDTH 18.8 % (11.6-14.6)
[2017-02-12] MEDS ORDERED: TRAMADOL 50MG TABLET PO ONE (13:30)
[2017-02-12] MEDS ORDERED: MORPHINE SULFATE 2 MG/ML CPJ (NOT FOR IM USE) IV ONE (13:30)
[2017-02-12 13:32] LABS: INR 1.1
[2017-02-12 13:42] LABS: CARBON DIOXIDE 27 mEq/L (21-32); CHLORIDE 96 mEq/L (98-107)
[2017-02-12 14:55] VITALS: BP 194/106
[2017-02-12] MEDS ORDERED: ONDANSETRON HCL 4MG TABLET PO ONE (15:30)
[2017-02-12] MEDS ORDERED: ACETAMINOPHEN 325MG TABLET PO ONE (15:30)
== END 2017-02-12 16:35 | disposition home or self-care (01) ==
LOC: ER 12:17
DX: R10.84 Generalized abdominal pain (principal); I12.0 Hypertensive chronic kidney disease with stage 5 chronic kidney disease or end stage renal disease; N18.6 End stage renal disease; Z99.2 Dependence on renal dialysis
CPT/HCPCS: 36415; 74176; 80053; 83690; 85025; 85610; 96374; 96375; 99285; J1885; J2270; J2405; J3490; Q0162; Z7610; C1893

== ENCOUNTER 2017-02-12 19:09 | Emergency (ER) | payer OTHER ==
[~2017-02-12] VITALS: Ht 177.8 cm; Wt 54.0 kg
[2017-02-12] MEDS ORDERED: CLONIDINE 0.1MG TABLET PO STA (20:08)
[2017-02-12] MEDS ORDERED: VISCOUS LIDOCAINE 2% 15 ML UDC MM ONE (20:15)
[2017-02-12] MEDS ORDERED: MAGNESIUM/ALUMINUM HYDROXIDE/SIMETHICONE 30ML UDC PO ONE (20:15)
[2017-02-12] MEDS: DICYCLOMINE HCL 20MG TABLET PO SCH ×2 (20:35→20:45)
[2017-02-12 21:19] VITALS: BP 246/140
== END 2017-02-12 22:33 | disposition home or self-care (01) ==
LOC: ER 19:45
DX: R10.84 Generalized abdominal pain (principal); I12.0 Hypertensive chronic kidney disease with stage 5 chronic kidney disease or end stage renal disease; N18.6 End stage renal disease; Z99.2 Dependence on renal dialysis
CPT/HCPCS: 99291

== ENCOUNTER 2017-02-21 12:46 | Inpatient (IN) | payer OTHER ==
[~2017-02-21] VITALS: Ht 175.3 cm; Wt 77.1 kg
[2017-02-21] MEDS ORDERED: KETOROLAC 30MG/ML VIAL IV STA (13:50)
[2017-02-21] MEDS ORDERED: ONDANSETRON HCL 4MG/2ML VIAL IV STA ×2 (13:50→16:29)
[2017-02-21 15:00] LABS: EOSINOPHILS % 0.1 % (0.0-5.0); HEMATOCRIT. 41.8 % (42.0-52.0); HEMOGLOBIN. 13.5 g/dL (14.0-18.0); LYMPHOCYTES % 13.5 % (20.0-50.0); MEAN CORPUSCULAR HEMOGLOBIN 28.2 pg (28.0-32.0); MEAN CORPUSCULAR VOLUME 87.4 fL (80.0-94.0); MEAN PLATELET VOLUME 6.9 fl (7.4-10.4); MONOCYTES % 3.2 % (2.0-8.0); NEUTROPHILS % 82.2 % (40.0-76.0); PLATELET 221 x1000/uL (130-400); RED BLOOD CELL COUNT 4.78 mill/uL (4.7-6.1); RED CELL DISTRIBUTION WIDTH 19.1 % (11.6-14.6)
[2017-02-21] MEDS ORDERED: HYDRALAZINE 20MG/ML VIAL IV ONE (15:00)
[2017-02-21 15:04] LABS: PROTHROMBIN TIME 10.7 sec (9.4-11.6)
[2017-02-21 15:16] LABS: CARBON DIOXIDE 19 mEq/L (21-32); CHLORIDE 106 mEq/L (98-107)
[2017-02-21] MEDS ORDERED: SODIUM BICARBONATE 8.4% 1 MEQ/ML 50ML SYR IV ONE (15:30)
[2017-02-21] MEDS ORDERED: INSULIN REGULAR (HUMULIN R) 300UNITS/3ML IV ONE (15:30)
[2017-02-21] MEDS ORDERED: DEXTROSE 50% WATER 50ML SYRINGE IV ONE (15:30)
[2017-02-21] MEDS: ALBUTEROL (0.083%) 2.5MG/3ML NEB HHN SCH ×3 (15:30→16:30)
[2017-02-21] MEDS ORDERED: CALCIUM GLUCONATE 1,000 MG in DEXT 5% WATER 100 ML IV ONE (15:30)
[2017-02-21] MEDS ORDERED: MORPHINE SULFATE 4 MG/ML CPJ (NOT FOR IM USE) IV STA (16:29)
[2017-02-21] MEDS ORDERED: ONDANSETRON HCL 4MG/2ML VIAL IV PRN (17:30)
[2017-02-21] MEDS ORDERED: HYDROCODONE/ACETAMINOPHEN 5/325MG TABLET PO PRN (17:30)
[2017-02-21] MEDS ORDERED: IPRATROPIUM/ALBUTEROL 0.5-3(2.5)MG/3ML NEB INH PRN (17:30)
[2017-02-21] MEDS ORDERED: ACETAMINOPHEN 325MG TABLET PO PRN (17:30)
[2017-02-21] MEDS ORDERED: MAGNESIUM/ALUMINUM HYDROXIDE/SIMETHICONE 30ML UDC PO PRN (17:30)
[2017-02-21] MEDS: CLONIDINE 0.1MG TABLET PO PRN (19:08)
[2017-02-21 20:35] LABS: *AMPHETAMINES SCREEN URINE NEGATIVE (NEGATIVE); *BARBITURATES SCREEN URINE NEGATIVE (NEGATIVE); *BENZODIAZEPINES SCREEN URINE NEGATIVE (NEGATIVE); *COCAINE SCREEN URINE PRESUMTIVE POSITIVE (NEGATIVE); CANNABINOID URINE SCREEN PRESUMTIVE POSITIVE (NEGATIVE); METHADONE URINE SCREEN NEGATIVE (NEGATIVE); OPIATES URINE SCREEN NEGATIVE (NEGATIVE); PHENCYCLIDINE URINE SCREEN NEGATIVE (NEGATIVE)
[2017-02-21] MEDS: DILTIAZEM 125MG in DEXTROSE 5% WATER 125ML IV PRN (21:50)
[2017-02-21 22:45] VITALS: BP 209/130
[2017-02-21 23:00] VITALS: BP_SYST 209; BP_SYST 211; BP_DIAS 122; BP_DIAS 130
[2017-02-21 23:15] VITALS: BP 229/126
[2017-02-21 23:30] VITALS: BP 238/127
[2017-02-21 23:45] VITALS: BP 206/135
[2017-02-22] VITALS (90 sets, daily range): BP systolic 119–228; BP diastolic 79–158
[2017-02-22 01:07] LABS: CREATINE KINASE MB FRACTION 2.5 ng/mL (0.5-3.6)
[2017-02-22 01:10] LABS: TROPONIN I 0.04 ng/mL (0.00-0.04)
[2017-02-22 08:02] LABS: CREATINE KINASE MB FRACTION 2.1 ng/mL (0.5-3.6); TROPONIN I 0.06 ng/mL (0.00-0.04)
[2017-02-22 08:07] LABS: BASOPHILS % 0.8 % (0.0-2.0); EOSINOPHILS % 0.2 % (0.0-5.0); HEMATOCRIT. 45.6 % (42.0-52.0); HEMOGLOBIN. 14.6 g/dL (14.0-18.0); LYMPHOCYTES % 16.1 % (20.0-50.0); MEAN CORPUSCULAR VOLUME 87.5 fL (80.0-94.0); MEAN PLATELET VOLUME 7.3 fl (7.4-10.4); NEUTROPHILS % 72.9 % (40.0-76.0); PLATELET 203 x1000/uL (130-400); RED BLOOD CELL COUNT 5.21 mill/uL (4.7-6.1); RED CELL DISTRIBUTION WIDTH 19.3 % (11.6-14.6)
[2017-02-22] MEDS: CLONIDINE 0.1MG TABLET PO PRN (08:42)
[2017-02-22] MEDS: DILTIAZEM 125MG in DEXTROSE 5% WATER 125ML IV PRN (10:39)
[2017-02-22] MEDS ORDERED: FOLIC ACID/VITAMIN B COMP W-C TABLET PO SCH (12:15)
[2017-02-22] MEDS ORDERED: TAMSULOSIN HCL 0.4MG SR CAPSULE PO SCH (12:15)
[2017-02-22] MEDS ORDERED: HYDROCODONE/ACETAMINOPHEN 5/325MG TABLET PO PRN (12:15)
[2017-02-22] MEDS ORDERED: NIFEDIPINE XL 60MG TAB PO SCH (12:15)
[2017-02-22] MEDS ORDERED: CARVEDILOL 25MG TABLET PO SCH (12:15)
[2017-02-22] MEDS ORDERED: NIFEDIPINE XL 90MG TAB PO SCH (12:35)
[2017-02-22] MEDS ORDERED: CALCIUM ACETATE 667MG CAPSULE PO SCH (13:20)
[2017-02-22] MEDS ORDERED: ATORVASTATIN CALCIUM 10MG TABLET PO SCH (21:00)
== END 2017-02-22 18:12 | disposition left against medical advice (07) | DRG 194 ==
LOC: ER 13:04 → CVICU 16:45 → ENRESERV 19:58 → CANRESERV 19:58 → EDBEDREQSVC 20:35 → ENRESERV 20:59
PROVIDERS: ADMIT Internal Medicine; ATTEND Internal Medicine
PROC: 5A1D70Z Performance of Urinary Filtration, Intermittent, Less than 6 Hours Per Day (ICD-10-PCS; principal; 2017-02-22)
DX: I13.2 Hypertensive heart and chronic kidney disease with heart failure and with stage 5 chronic kidney disease, or end stage renal disease (principal); N18.6 End stage renal disease; E87.5 Hyperkalemia; E78.5 Hyperlipidemia, unspecified; E87.70 Fluid overload, unspecified; I50.9 Heart failure, unspecified; F17.210 Nicotine dependence, cigarettes, uncomplicated; J44.9 Chronic obstructive pulmonary disease, unspecified; N40.0 Benign prostatic hyperplasia without lower urinary tract symptoms; F19.10 Other psychoactive substance abuse, uncomplicated; Z53.21 Procedure and treatment not carried out due to patient leaving prior to being seen by health care provider; D64.9 Anemia, unspecified; Z91.15 Patient's noncompliance with renal dialysis; Z79.899 Other long term (current) drug therapy
CPT/HCPCS: 36415; 71010; 74176; 80048; 80053; 80061; 80305; 82550; 82553; 82962; 83690; 83735; 84100; 84484; 85025; 85610; 93005; 94640; 96361; 96374; 96375; 96376; 99291; J0360; J0610; J1815; J1885; J2270; J2405; J3490; J7030; J7060

== ENCOUNTER 2017-03-19 12:57 | Inpatient (IN) | payer MEDICAID, OTHER ==
[~2017-03-19] VITALS: Ht 185.4 cm; Wt 51.7 kg
[2017-03-19 14:28] LABS: BASOPHILS % 0.8 % (0.0-2.0); EOSINOPHILS % 0.1 % (0.0-5.0); HEMATOCRIT. 42.7 % (42.0-52.0); HEMOGLOBIN. 13.6 g/dL (14.0-18.0); LYMPHOCYTES % 15.1 % (20.0-50.0); MEAN CORPUSCULAR HEMOGLOBIN 27.4 pg (28.0-32.0); MEAN CORPUSCULAR VOLUME 86.1 fL (80.0-94.0); MEAN PLATELET VOLUME 8.5 fl (7.4-10.4); PLATELET 244 x1000/uL (130-400); RED BLOOD CELL COUNT 4.96 mill/uL (4.7-6.1); RED CELL DISTRIBUTION WIDTH 18.3 % (11.6-14.6)
[2017-03-19 14:38] LABS: INR 1.1; PARTIAL THROMBOPLASTIN TIME 30.7 sec (23.4-31.0); PROTHROMBIN TIME 11.5 sec (9.4-11.6)
[2017-03-19 14:47] LABS: CARBON DIOXIDE 17 mEq/L (21-32); CHLORIDE 101 mEq/L (98-107); PHOSPHORUS 6.4 mg/dL (2.5-4.9); TROPONIN I 0.03 ng/mL (0.00-0.04)
[2017-03-19] MEDS ORDERED: ONDANSETRON HCL 4MG/2ML VIAL IV STA (15:04)
[2017-03-19] MEDS ORDERED: NITROGLYCERIN OINT 1GM/INCH UDPKT TD STA (15:04)
[2017-03-19] MEDS ORDERED: MORPHINE SULFATE 4 MG/ML CPJ (NOT FOR IM USE) IV STA (15:04)
[2017-03-19] MEDS ORDERED: METHYLPREDNISOLONE SOD SUCC 125 MG/2 ML VIAL IV STA (15:04)
[2017-03-19] MEDS ORDERED: CALCIUM CHLORIDE 1GM/10ML SYR IV ONE (15:15)
[2017-03-19] MEDS ORDERED: SODIUM POLYSTYRENE SULFONATE 15 G/60 ML BOT PO ONE (15:15)
[2017-03-19] MEDS ORDERED: HYDRALAZINE 20MG/ML VIAL IV ONE ×2 (15:15→16:45)
[2017-03-19] MEDS ORDERED: SODIUM BICARBONATE 8.4% 1 MEQ/ML 50ML SYR IV ONE (15:15)
[2017-03-19] MEDS ORDERED: IPRATROPIUM/ALBUTEROL 0.5-3(2.5)MG/3ML NEB HHN ONE (15:30)
[2017-03-19] MEDS ORDERED: ALBUTEROL (0.083%) 2.5MG/3ML NEB ONE (15:36)
[2017-03-19 16:13] LABS: CREATINE KINASE 103 IU/L (39-308)
[2017-03-19] MEDS ORDERED: ALBUTEROL (0.5%) 2.5MG/0.5ML NEB HHN ONE (16:15)
[2017-03-19] MEDS ORDERED: METOCLOPRAMIDE HCL 10MG/2ML VIAL IV ONE (17:45)
[2017-03-19] MEDS ORDERED: LABETALOL 5MG/ML SYR 20 MG/4 ML SYRINGE IV ONE (20:00)
[2017-03-19 22:24] VITALS: BP 194/118
[2017-03-19] MEDS ORDERED: ONDANSETRON HCL 4MG/2ML VIAL IV PRN (23:00)
[2017-03-19] MEDS ORDERED: ACETAMINOPHEN 325MG TABLET PO PRN (23:00)
[2017-03-19] MEDS ORDERED: IPRATROPIUM/ALBUTEROL 0.5-3(2.5)MG/3ML NEB INH PRN (23:00)
[2017-03-19] MEDS ORDERED: HYDROCODONE/ACETAMINOPHEN 5/325MG TABLET PO PRN (23:00)
[2017-03-19] MEDS ORDERED: MAGNESIUM/ALUMINUM HYDROXIDE/SIMETHICONE 30ML UDC PO PRN (23:00)
[2017-03-19 23:03] VITALS: BP 194/118
[2017-03-20] VITALS (7 sets, daily range): BP systolic 122–193; BP diastolic 85–122
[2017-03-20 07:32] LABS: BASOPHILS % 0.8 % (0.0-2.0); HEMATOCRIT. 40.5 % (42.0-52.0); HEMOGLOBIN. 12.9 g/dL (14.0-18.0); LYMPHOCYTES % 15.5 % (20.0-50.0); MEAN CORPUSCULAR VOLUME 85.1 fL (80.0-94.0); MONOCYTES % 6.2 % (2.0-8.0); NEUTROPHILS % 77.5 % (40.0-76.0); PLATELET 273 x1000/uL (130-400); RED BLOOD CELL COUNT 4.76 mill/uL (4.7-6.1); RED CELL DISTRIBUTION WIDTH 18.2 % (11.6-14.6)
[2017-03-20] MEDS: HYDRALAZINE 20MG/ML VIAL IV PRN ×2 (07:48→15:57)
[2017-03-20 08:01] LABS: CREATINE KINASE MB FRACTION 3.5 ng/mL (0.5-3.6); TROPONIN I 0.07 ng/mL (0.00-0.04)
[2017-03-20] MEDS: CLONIDINE 0.1MG TABLET PO PRN (09:37)
[2017-03-20] MEDS ORDERED: NIFEDIPINE XL 60MG TAB PO SCH (12:15)
[2017-03-20] MEDS: FOLIC ACID/VITAMIN B COMP W-C TABLET PO SCH (12:26)
[2017-03-20] MEDS: CALCIUM ACETATE 667MG CAPSULE PO SCH ×2 (12:27→17:07)
[2017-03-20] MEDS: TAMSULOSIN HCL 0.4MG SR CAPSULE PO SCH (12:27)
[2017-03-20 16:21] LABS: CREATINE KINASE MB FRACTION 2.8 ng/mL (0.5-3.6); TROPONIN I 0.07 ng/mL (0.00-0.04)
[2017-03-20] MEDS ORDERED: NIFEDIPINE XL 30MG TAB PO NR (17:00)
[2017-03-20] MEDS: CLONIDINE 0.1MG TABLET PO SCH (17:07)
[2017-03-20] MEDS: LOSARTAN POTASSIUM 50 MG TABLET PO SCH (20:22)
[2017-03-20] MEDS: CARVEDILOL 25MG TABLET PO SCH (20:22)
[2017-03-20] MEDS ORDERED: ATORVASTATIN CALCIUM 10MG TABLET PO SCH (21:00)
[2017-03-21 00:40] VITALS: BP 150/96
[2017-03-21 04:00] VITALS: BP 151/99
[2017-03-21 06:42] LABS: BASOPHILS % 0.2 % (0.0-2.0); EOSINOPHILS % 0.2 % (0.0-5.0); HEMATOCRIT. 42.6 % (42.0-52.0); HEMOGLOBIN. 13.7 g/dL (14.0-18.0); LYMPHOCYTES % 24.8 % (20.0-50.0); MEAN CORPUSCULAR HEMOGLOBIN 27.4 pg (28.0-32.0); MEAN PLATELET VOLUME 8.2 fl (7.4-10.4); NEUTROPHILS % 60.8 % (40.0-76.0); PLATELET 245 x1000/uL (130-400); RED BLOOD CELL COUNT 5.01 mill/uL (4.7-6.1); RED CELL DISTRIBUTION WIDTH 18.2 % (11.6-14.6)
[2017-03-21 08:09] VITALS: BP 150/105
[2017-03-21] MEDS: TAMSULOSIN HCL 0.4MG SR CAPSULE PO SCH (08:36)
[2017-03-21] MEDS: CALCIUM ACETATE 667MG CAPSULE PO SCH ×2 (08:36→13:00)
[2017-03-21] MEDS: CARVEDILOL 25MG TABLET PO SCH (08:37)
[2017-03-21] MEDS: FOLIC ACID/VITAMIN B COMP W-C TABLET PO SCH (08:37)
[2017-03-21] MEDS: CLONIDINE 0.1MG TABLET PO SCH (08:38)
[2017-03-21] MEDS ORDERED: SODIUM POLYSTYRENE SULFONATE 15 G/60 ML BOT PO NR (08:45)
[2017-03-21] MEDS: LOSARTAN POTASSIUM 50 MG TABLET PO SCH (09:00)
[2017-03-21] MEDS ORDERED: NIFEDIPINE XL 90MG TAB PO SCH (09:00)
[2017-03-21 12:00] VITALS: BP 144/104
[2017-03-21] MEDS: CLONIDINE 0.1MG TABLET PO PRN (12:02)
== END 2017-03-21 13:10 | disposition left against medical advice (07) | DRG 469 ==
LOC: ER 13:25 → 6WST 17:06 → EDBEDREQ 17:10 → ENRESERV 21:15
PROVIDERS: ADMIT Internal Medicine; ATTEND Internal Medicine
PROC: 5A1D70Z Performance of Urinary Filtration, Intermittent, Less than 6 Hours Per Day (ICD-10-PCS; principal; 2017-03-21)
DX: N17.9 Acute kidney failure, unspecified (principal); I13.2 Hypertensive heart and chronic kidney disease with heart failure and with stage 5 chronic kidney disease, or end stage renal disease; E87.2 Acidosis; R65.10 Systemic inflammatory response syndrome (SIRS) of non-infectious origin without acute organ dysfunction; E87.1 Hypo-osmolality and hyponatremia; I50.9 Heart failure, unspecified; E83.39 Other disorders of phosphorus metabolism; N18.6 End stage renal disease; Z53.21 Procedure and treatment not carried out due to patient leaving prior to being seen by health care provider; E87.5 Hyperkalemia; D64.9 Anemia, unspecified; F14.90 Cocaine use, unspecified, uncomplicated; E78.5 Hyperlipidemia, unspecified; Z91.15 Patient's noncompliance with renal dialysis; Z99.2 Dependence on renal dialysis; Z91.19 Patient's noncompliance with other medical treatment and regimen; Z79.1 Long term (current) use of non-steroidal anti-inflammatories (NSAID); Z79.2 Long term (current) use of antibiotics; Z79.899 Other long term (current) drug therapy
CPT/HCPCS: 36415; 71045; 74018; 80048; 80051; 80053; 80061; 82550; 82553; 83605; 83690; 83735; 83880; 84100; 84443; 84484; 85025; 85379; 85610; 85730; 87040; 93005; 94640; 96374; 99285; J0360; J2270; J2405; J2765; J2930; J3490; J7611; J7620

== ENCOUNTER 2017-04-24 13:55 | Emergency (ER) | payer OTHER ==
[~2017-04-24] VITALS: Ht 175.3 cm; Wt 75.0 kg
[~2017-04-24 13:55] MED LIST changes: -CEPH500C2
[2017-04-24] MEDS ORDERED: KETOROLAC 30MG/ML VIAL IV STA (15:50)
[2017-04-24] MEDS ORDERED: ONDANSETRON HCL 4MG/2ML VIAL IV STA ×2 (15:50→16:58)
[2017-04-24 16:19] LABS: INR 1.1; PROTHROMBIN TIME 11.6 sec (9.4-11.6)
[2017-04-24 16:25] LABS: CHLORIDE 98 mEq/L (98-107)
[2017-04-24 16:28] LABS: BASOPHILS % 0.4 % (0.0-2.0); HEMATOCRIT. 44.1 % (42.0-52.0); HEMOGLOBIN. 13.8 g/dL (14.0-18.0); LYMPHOCYTES % 20.4 % (20.0-50.0); MEAN CORPUSCULAR HEMOGLOBIN 27.3 pg (28.0-32.0); MEAN CORPUSCULAR VOLUME 87.4 fL (80.0-94.0); MEAN PLATELET VOLUME 7.6 fl (7.4-10.4); MONOCYTES % 5.1 % (2.0-8.0); NEUTROPHILS % 74.1 % (40.0-76.0); PLATELET 271 x1000/uL (130-400); RED BLOOD CELL COUNT 5.05 mill/uL (4.7-6.1)
[2017-04-24] MEDS ORDERED: MORPHINE SULFATE 4 MG/ML CPJ (NOT FOR IM USE) IV STA (16:58)
[2017-04-24] MEDS ORDERED: CLONIDINE 0.1MG TABLET PO ONE (20:15)
[2017-04-24] MEDS ORDERED: HYDRALAZINE 20MG/ML VIAL IV PRN (20:45)
[2017-04-24] MEDS ORDERED: IPRATROPIUM/ALBUTEROL 0.5-3(2.5)MG/3ML NEB INH PRN (20:45)
[2017-04-24] MEDS ORDERED: MORPHINE SULFATE 4 MG/ML CPJ (NOT FOR IM USE) IV PRN (20:45)
[2017-04-24 21:45] VITALS: BP 159/99
== END 2017-04-24 21:45 | disposition left against medical advice (07) ==
LOC: ER 13:55 → ENRESERV 18:50 → CANRESERV 18:50 → ER 21:45 → CANBEDREQ 04-25 16:37
DX: K85.90 Acute pancreatitis without necrosis or infection, unspecified (principal); I12.0 Hypertensive chronic kidney disease with stage 5 chronic kidney disease or end stage renal disease; N18.6 End stage renal disease; R94.31 Abnormal electrocardiogram [ECG] [EKG]; I51.7 Cardiomegaly; J98.4 Other disorders of lung; Z99.2 Dependence on renal dialysis
CPT/HCPCS: 36415; 74176; 80053; 83690; 85025; 85610; 93005; 96374; 96375; 96376; 99285; J1885; J2270; J2405

== ENCOUNTER 2017-05-05 14:02 | Inpatient (IN) | payer OTHER ==
[~2017-05-05] VITALS: Ht 185.4 cm; Wt 52.6 kg
[2017-05-05] MEDS ORDERED: ONDANSETRON HCL 4MG/2ML VIAL IV STA ×2 (14:51→16:11)
[2017-05-05] MEDS ORDERED: SODIUM CHLORIDE 0.9% 1,000 ML IV ONE (14:51)
[2017-05-05 15:54] LABS: PROTHROMBIN TIME 10.5 sec (9.4-11.6)
[2017-05-05 15:56] LABS: BASOPHILS % 1.8 % (0.0-2.0); EOSINOPHILS % 0.3 % (0.0-5.0); HEMATOCRIT. 45.6 % (42.0-52.0); HEMOGLOBIN. 14.4 g/dL (14.0-18.0); LYMPHOCYTES % 15.9 % (20.0-50.0); MEAN CORPUSCULAR HEMOGLOBIN 27.8 pg (28.0-32.0); MEAN CORPUSCULAR VOLUME 87.9 fL (80.0-94.0); MEAN PLATELET VOLUME 8.2 fl (7.4-10.4); MONOCYTES % 2.6 % (2.0-8.0); NEUTROPHILS % 79.4 % (40.0-76.0); PLATELET 293 x1000/uL (130-400); RED BLOOD CELL COUNT 5.18 mill/uL (4.7-6.1); RED CELL DISTRIBUTION WIDTH 20.9 % (11.6-14.6)
[2017-05-05 15:58] LABS: CHLORIDE 99 mEq/L (98-107)
[2017-05-05 16:05] LABS: TROPONIN I < 0.02 ng/mL (0.00-0.04)
[2017-05-05] MEDS ORDERED: MORPHINE SULFATE 4 MG/ML CPJ (NOT FOR IM USE) IV STA (16:11)
[2017-05-05] MEDS ORDERED: ALBUTEROL (0.083%) 2.5MG/3ML NEB HHN ONE (16:15)
[2017-05-05] MEDS ORDERED: SODIUM POLYSTYRENE SULFONATE 15 G/60 ML BOT PO ONE (16:15)
[2017-05-05] MEDS ORDERED: CALCIUM CHLORIDE 1GM/10ML SYR IV ONE (16:15)
[2017-05-05] MEDS ORDERED: DEXTROSE 50% WATER 50ML SYRINGE IV ONE (16:15)
[2017-05-05] MEDS ORDERED: INSULIN REGULAR (HUMULIN R) 300UNITS/3ML IV ONE (16:15)
[2017-05-05] MEDS ORDERED: SODIUM BICARBONATE 8.4% 1 MEQ/ML 50ML SYR IV ONE (16:15)
[2017-05-05] MEDS ORDERED: NITROGLYCERIN 0.4MG TABLET SL SL PRN (18:30)
[2017-05-05] MEDS ORDERED: MAGNESIUM/ALUMINUM HYDROXIDE/SIMETHICONE 30ML UDC PO PRN (18:30)
[2017-05-05] MEDS ORDERED: ONDANSETRON HCL 4MG/2ML VIAL IV PRN (18:30)
[2017-05-05] MEDS ORDERED: DIPHENHYDRAMINE 50MG/ML VIAL IV PRN (18:30)
[2017-05-05] MEDS ORDERED: DOCUSATE SODIUM 100MG CAPSULE PO PRN (18:30)
[2017-05-05] MEDS ORDERED: LORAZEPAM 0.5MG TABLET PO PRN (18:30)
[2017-05-05] MEDS ORDERED: GUAIFENESIN 200MG/10ML SUGAR FREE UDC PO PRN (18:30)
[2017-05-05] MEDS ORDERED: ACETAMINOPHEN 325MG TABLET PO PRN (18:30)
[2017-05-05] MEDS ORDERED: ZOLPIDEM TARTRATE 5MG TABLET PO PRN (18:30)
[2017-05-05] MEDS ORDERED: IPRATROPIUM/ALBUTEROL 0.5-3(2.5)MG/3ML NEB INH PRN (18:30)
[2017-05-05] MEDS ORDERED: CLONIDINE 0.1MG TABLET PO PRN (18:30)
[2017-05-05] MEDS ORDERED: NIFEDIPINE XL 60MG TAB PO NR (18:45)
[2017-05-05] MEDS ORDERED: IOHEXOL-300 100 ML BOTTLE ONE (20:23)
[2017-05-05] MEDS ORDERED: ASPIRIN 81MG TABLET PO NR (21:30)
[2017-05-05] MEDS ORDERED: ENOXAPARIN 30MG/0.3ML SYR SUBCUT SCH (22:30)
[2017-05-05] MEDS ORDERED: HEPARIN SODIUM 1,000 UNIT/1ML VIAL IV NR (22:45)
[2017-05-05 23:00] VITALS: BP 225/154
[2017-05-05] MEDS ORDERED: FAMOTIDINE 20MG/2ML VIAL IV SCH (23:00)
[2017-05-05] MEDS ORDERED: CARVEDILOL 25MG TABLET PO SCH (23:00)
[2017-05-05] MEDS ORDERED: ATORVASTATIN CALCIUM 10MG TABLET PO SCH (23:00)
[2017-05-05] MEDS: HYDRALAZINE HCL 50MG TABLET PO SCH (23:08)
[2017-05-05] MEDS ORDERED: MINOXIDIL 10MG TABLET PO SCH (23:30)
[2017-05-05 23:49] LABS: TROPONIN I 0.03 ng/mL (0.00-0.04)
[2017-05-05 23:50] LABS: CREATINE KINASE MB FRACTION 1.9 ng/mL (0.5-3.6)
[2017-05-06] VITALS: BP 186/138
[2017-05-06 04:00] VITALS: BP 92/64
[2017-05-06 05:15] LABS: *AMPHETAMINES SCREEN URINE NEGATIVE (NEGATIVE); *BARBITURATES SCREEN URINE NEGATIVE (NEGATIVE); *BENZODIAZEPINES SCREEN URINE NEGATIVE (NEGATIVE); *COCAINE SCREEN URINE PRESUMTIVE POSITIVE (NEGATIVE); CANNABINOID URINE SCREEN PRESUMTIVE POSITIVE (NEGATIVE); METHADONE URINE SCREEN NEGATIVE (NEGATIVE); OPIATES URINE SCREEN PRESUMTIVE POSITIVE (NEGATIVE); PHENCYCLIDINE URINE SCREEN NEGATIVE (NEGATIVE)
[2017-05-06] MEDS: HYDRALAZINE HCL 50MG TABLET PO SCH (06:00)
[2017-05-06] MEDS ORDERED: SEVELAMER CARBONATE 800 MG TABLET PO SCH (07:50)
[2017-05-06] MEDS ORDERED: FOLIC ACID/VITAMIN B COMP W-C TABLET PO SCH (09:00)
[2017-05-06] MEDS ORDERED: NIFEDIPINE XL 60MG TAB PO SCH (09:00)
[2017-05-06 09:01] LABS: CREATINE KINASE MB FRACTION 1.4 ng/mL (0.5-3.6); TROPONIN I 0.03 ng/mL (0.00-0.04)
[2017-05-06] MEDS ORDERED: ENOXAPARIN 30MG/0.3ML SYR SUBCUT SCH (21:00)
== END 2017-05-06 08:00 | disposition left against medical advice (07) | DRG 199 ==
LOC: ER 14:08 → 6WST 17:21 → EDBEDREQ 17:24 → EDBEDREQSVC 17:24 → ENRESERV 19:47 → CANRESERV 19:47 → EDBEDREQSVC 20:04 → ENRESERV 20:07 → 6WST 22:10
PROVIDERS: ADMIT Internal Medicine; ATTEND Internal Medicine
DX: I16.1 Hypertensive emergency (principal); I50.33 Acute on chronic diastolic (congestive) heart failure; N18.6 End stage renal disease; E87.1 Hypo-osmolality and hyponatremia; I13.2 Hypertensive heart and chronic kidney disease with heart failure and with stage 5 chronic kidney disease, or end stage renal disease; E87.5 Hyperkalemia; F12.90 Cannabis use, unspecified, uncomplicated; F17.210 Nicotine dependence, cigarettes, uncomplicated; K29.70 Gastritis, unspecified, without bleeding; F19.10 Other psychoactive substance abuse, uncomplicated; D64.9 Anemia, unspecified; Z53.21 Procedure and treatment not carried out due to patient leaving prior to being seen by health care provider; Z76.5 Malingerer [conscious simulation]; Z91.14 Patient's other noncompliance with medication regimen; Z91.15 Patient's noncompliance with renal dialysis; Z79.899 Other long term (current) drug therapy; Z71.6 Tobacco abuse counseling
CPT/HCPCS: 36415; 71045; 74177; 80051; 80053; 80061; 80305; 82550; 82553; 82962; 83036; 83690; 84484; 85025; 85610; 93005; 93970; 96365; 96375; 96376; 99291; J1644; J1815; J2270; J2405; J3490; J7030; J7040; Q9967

== ENCOUNTER 2017-11-25 16:54 | Inpatient (IN) | payer OTHER ==
[~2017-11-25] VITALS: Ht 175.3 cm; Wt 57.6 kg
[2017-11-25] MEDS ORDERED: SODIUM CHLORIDE 0.9% 1,000 ML IV ONE (17:37)
[2017-11-25 19:17] LABS: CHLORIDE 104 mEq/L (98-107)
[2017-11-25 19:22] LABS: BASOPHILS % 0.5 % (0.0-2.0); ETHANOL BLOOD < 10 mg/dL; HEMATOCRIT. 25.6 % (42.0-52.0); HEMOGLOBIN. 8.5 g/dL (14.0-18.0); LYMPHOCYTES % 17.2 % (20.0-50.0); MEAN CORPUSCULAR HEMOGLOBIN 29.3 pg (28.0-32.0); MEAN CORPUSCULAR VOLUME 88.2 fL (80.0-94.0); MEAN PLATELET VOLUME 8.5 fl (7.4-10.4); MONOCYTES % 9.2 % (2.0-8.0); NEUTROPHILS % 71.1 % (40.0-76.0); PLATELET 275 x1000/uL (130-400); RED CELL DISTRIBUTION WIDTH 16.3 % (11.6-14.6)
[2017-11-25 19:26] LABS: INR 1.1; PROTHROMBIN TIME 10.7 sec (9.1-11.1)
[2017-11-25] MEDS ORDERED: CLONIDINE 0.1MG TABLET PO ONE (20:15)
[2017-11-25] MEDS ORDERED: IPRATROPIUM/ALBUTEROL 0.5-3(2.5)MG/3ML NEB INH PRN (21:00)
[2017-11-25] MEDS ORDERED: DOCUSATE SODIUM 100MG CAPSULE PO PRN (21:00)
[2017-11-25] MEDS ORDERED: ACETAMINOPHEN 325MG TABLET PO PRN (21:00)
[2017-11-25] MEDS ORDERED: CARVEDILOL 25MG TABLET PO ONE (21:00)
[2017-11-25 22:00] VITALS: BP 170/102
[2017-11-26] VITALS (7 sets, daily range): BP systolic 159–209; BP diastolic 97–118
[2017-11-26] MEDS ORDERED: ONDANSETRON HCL 4MG/2ML INJ IV PRN (00:12)
[2017-11-26 00:20] LABS: AMMONIA 25 uMol/L (<32)
[2017-11-26 00:25] LABS: CREATINE KINASE MB FRACTION 3.4 ng/mL (0.5-3.6)
[2017-11-26] MEDS ORDERED: SODIUM POLYSTYRENE SULFONATE 15 G/60 ML BOT PO SCH (02:00)
[2017-11-26] MEDS: CLONIDINE 0.1MG TABLET PO PRN ×3 (05:36→21:28)
[2017-11-26] MEDS: HYDROCODONE/ACETAMINOPHEN 5/325MG TABLET PO PRN (05:38)
[2017-11-26 07:12] LABS: BASOPHILS % 0.6 % (0.0-2.0); EOSINOPHILS % 2.8 % (0.0-5.0); HEMATOCRIT. 27.2 % (42.0-52.0); HEMOGLOBIN. 9.1 g/dL (14.0-18.0); LYMPHOCYTES % 14.8 % (20.0-50.0); MEAN CORPUSCULAR HEMOGLOBIN 29.4 pg (28.0-32.0); MEAN CORPUSCULAR VOLUME 88.3 fL (80.0-94.0); MEAN PLATELET VOLUME 8.4 fl (7.4-10.4); MONOCYTES % 9.9 % (2.0-8.0); NEUTROPHILS % 71.9 % (40.0-76.0); PLATELET 300 x1000/uL (130-400); RED BLOOD CELL COUNT 3.08 mill/uL (4.7-6.1); RED CELL DISTRIBUTION WIDTH 16.2 % (11.6-14.6)
[2017-11-26 07:54] LABS: CREATINE KINASE MB FRACTION 2.6 ng/mL (0.5-3.6)
[2017-11-26] MEDS ORDERED: LORAZEPAM 0.5MG TABLET PO PRN (15:00)
[2017-11-26] MEDS: HYDROMORPHONE HCL/PF 2MG/ML CPJ IM PRN ×2 (15:20→21:29)
[2017-11-26] MEDS ORDERED: HEPARIN SODIUM 1,000 UNIT/1ML VIAL IV NR (17:00)
[2017-11-26] MEDS: CARVEDILOL 25MG TABLET PO SCH (18:07)
[2017-11-26] MEDS: LOSARTAN POTASSIUM 50 MG TABLET PO SCH (21:28)
[2017-11-27] VITALS (7 sets, daily range): BP systolic 138–203; BP diastolic 84–119
[2017-11-27] MEDS: HYDROMORPHONE HCL/PF 2MG/ML CPJ IM PRN ×3 (05:22→19:52)
[2017-11-27 07:53] LABS: BASOPHILS % 1.3 % (0.0-2.0); EOSINOPHILS % 2.8 % (0.0-5.0); HEMATOCRIT. 28.2 % (42.0-52.0); HEMOGLOBIN. 9.3 g/dL (14.0-18.0); LYMPHOCYTES % 16.8 % (20.0-50.0); MEAN CORPUSCULAR HEMOGLOBIN 29.2 pg (28.0-32.0); MEAN CORPUSCULAR VOLUME 88.4 fL (80.0-94.0); MEAN PLATELET VOLUME 8.7 fl (7.4-10.4); NEUTROPHILS % 69.1 % (40.0-76.0); PLATELET 283 x1000/uL (130-400); RED BLOOD CELL COUNT 3.19 mill/uL (4.7-6.1)
[2017-11-27] MEDS: OMEPRAZOLE 20MG CAPSULE EXTENDED RELEASE PO SCH (08:24)
[2017-11-27] MEDS: CARVEDILOL 25MG TABLET PO SCH (08:25)
[2017-11-27] MEDS: NIFEDIPINE XL 60MG TAB PO SCH (08:25)
[2017-11-27] MEDS: LOSARTAN POTASSIUM 50 MG TABLET PO SCH ×2 (08:25→20:33)
[2017-11-27] MEDS: TAMSULOSIN HCL 0.4MG SR CAPSULE PO SCH (08:25)
[2017-11-27] MEDS: CLONIDINE 0.1MG TABLET PO PRN (09:24)
[2017-11-27] MEDS ORDERED: HEPARIN SODIUM 1,000 UNIT/1ML VIAL IV NR (15:30)
[2017-11-27] MEDS: HYDROCODONE/ACETAMINOPHEN 5/325MG TABLET PO PRN (21:30)
[2017-11-28] VITALS: BP 167/78
[2017-11-28] MEDS: HYDROMORPHONE HCL/PF 2MG/ML CPJ IM PRN ×3 (02:04→19:55)
[2017-11-28 04:00] VITALS: BP 167/84
[2017-11-28 07:55] LABS: BASOPHILS % 0.7 % (0.0-2.0); EOSINOPHILS % 2.4 % (0.0-5.0); HEMATOCRIT. 31.7 % (42.0-52.0); HEMOGLOBIN. 10.5 g/dL (14.0-18.0); LYMPHOCYTES % 13.3 % (20.0-50.0); MEAN CORPUSCULAR HEMOGLOBIN 29.3 pg (28.0-32.0); MEAN CORPUSCULAR VOLUME 88.6 fL (80.0-94.0); MEAN PLATELET VOLUME 8.3 fl (7.4-10.4); MONOCYTES % 8.2 % (2.0-8.0); NEUTROPHILS % 75.4 % (40.0-76.0); PLATELET 260 x1000/uL (130-400); RED BLOOD CELL COUNT 3.58 mill/uL (4.7-6.1); RED CELL DISTRIBUTION WIDTH 15.7 % (11.6-14.6)
[2017-11-28 08:00] VITALS: BP 197/109
[2017-11-28 08:00] LABS: CHLORIDE 103 mEq/L (98-107)
[2017-11-28 08:10] LABS: PHOSPHORUS 4.8 mg/dL (2.5-4.9)
[2017-11-28] MEDS: CLONIDINE 0.1MG TABLET PO PRN (09:40)
[2017-11-28] MEDS: LOSARTAN POTASSIUM 50 MG TABLET PO SCH ×2 (09:40→20:35)
[2017-11-28] MEDS: NIFEDIPINE XL 60MG TAB PO SCH (09:40)
[2017-11-28] MEDS: OMEPRAZOLE 20MG CAPSULE EXTENDED RELEASE PO SCH (09:46)
[2017-11-28] MEDS: TAMSULOSIN HCL 0.4MG SR CAPSULE PO SCH (11:06)
[2017-11-28 12:00] VITALS: BP 189/110
[2017-11-28] MEDS: ALBUTEROL (0.083%) 2.5MG/3ML NEB HHN SCH ×2 (12:30→20:48)
[2017-11-28 16:00] VITALS: BP 160/110
[2017-11-28] MEDS: CLONIDINE 0.2MG TABLET PO SCH ×2 (17:15→21:24)
[2017-11-28] MEDS: DILTIAZEM HCL 90MG TABLET PO SCH (17:28)
[2017-11-28] MEDS ORDERED: HEPARIN SODIUM 1,000 UNIT/1ML VIAL IV NR (18:00)
[2017-11-28 19:49] LABS: HEPATITIS B SURFACE ANTIGEN NEGATIVE
[2017-11-28 20:00] VITALS: BP 169/90
[2017-11-28 20:16] LABS: HEPATITIS B CORE AB IGM NEGATIVE
[2017-11-28 20:18] LABS: HEPATITIS A AB IGM NEGATIVE (NEGATIVE)
[2017-11-29] VITALS: BP 120/64
[2017-11-29] MEDS: DILTIAZEM HCL 90MG TABLET PO SCH ×4 (00:30→16:59)
[2017-11-29] MEDS: ALBUTEROL (0.083%) 2.5MG/3ML NEB HHN SCH ×4 (02:33→21:39)
[2017-11-29 04:00] VITALS: BP 118/74
[2017-11-29] MEDS: HYDROMORPHONE HCL/PF 2MG/ML CPJ IM PRN ×3 (04:05→19:38)
[2017-11-29] MEDS: CLONIDINE 0.2MG TABLET PO SCH ×3 (06:00→19:39)
[2017-11-29 07:03] LABS: BASOPHILS % 0.7 % (0.0-2.0); EOSINOPHILS % 2.1 % (0.0-5.0); HEMATOCRIT. 27.6 % (42.0-52.0); MEAN CORPUSCULAR HEMOGLOBIN 29.2 pg (28.0-32.0); MEAN CORPUSCULAR VOLUME 89.6 fL (80.0-94.0); MEAN PLATELET VOLUME 8.2 fl (7.4-10.4); NEUTROPHILS % 72.2 % (40.0-76.0); PLATELET 197 x1000/uL (130-400); RED BLOOD CELL COUNT 3.08 mill/uL (4.7-6.1); RED CELL DISTRIBUTION WIDTH 15.9 % (11.6-14.6)
[2017-11-29 08:00] VITALS: BP 139/85
[2017-11-29] MEDS: TAMSULOSIN HCL 0.4MG SR CAPSULE PO SCH (09:43)
[2017-11-29] MEDS: LOSARTAN POTASSIUM 50 MG TABLET PO SCH ×2 (09:43→19:39)
[2017-11-29] MEDS: FAMOTIDINE 20MG TABLET PO SCH (09:43)
[2017-11-29] MEDS ORDERED: SODIUM POLYSTYRENE SULFONATE 15 G/60 ML BOT PO NR (10:00)
[2017-11-29 12:00] VITALS: BP 132/96
[2017-11-29 16:00] VITALS: BP 170/97
[2017-11-29] MEDS: CLONIDINE 0.1MG TABLET PO PRN (16:59)
[2017-11-29 19:37] VITALS: BP 170/88
[2017-11-30] VITALS: BP 165/90
[2017-11-30] MEDS: CLONIDINE 0.1MG TABLET PO PRN (00:45)
[2017-11-30] MEDS: DILTIAZEM HCL 90MG TABLET PO SCH ×4 (00:45→18:08)
[2017-11-30] MEDS: HYDROMORPHONE HCL/PF 2MG/ML CPJ IM PRN ×4 (01:32→21:48)
[2017-11-30] MEDS: ALBUTEROL (0.083%) 2.5MG/3ML NEB HHN SCH ×4 (02:20→18:00)
[2017-11-30 04:00] VITALS: BP 153/88
[2017-11-30 06:48] LABS: BASOPHILS % 0.8 % (0.0-2.0); EOSINOPHILS % 4.2 % (0.0-5.0); HEMATOCRIT. 26.8 % (42.0-52.0); HEMOGLOBIN. 8.8 g/dL (14.0-18.0); LYMPHOCYTES % 18.7 % (20.0-50.0); MEAN CORPUSCULAR HEMOGLOBIN 29.4 pg (28.0-32.0); MEAN CORPUSCULAR VOLUME 89.4 fL (80.0-94.0); MEAN PLATELET VOLUME 8.5 fl (7.4-10.4); MONOCYTES % 7.6 % (2.0-8.0); NEUTROPHILS % 68.7 % (40.0-76.0); PLATELET 187 x1000/uL (130-400); RED CELL DISTRIBUTION WIDTH 15.9 % (11.6-14.6)
[2017-11-30 08:17] VITALS: BP 122/79
[2017-11-30] MEDS: LOSARTAN POTASSIUM 50 MG TABLET PO SCH ×2 (08:29→20:38)
[2017-11-30] MEDS: FAMOTIDINE 20MG TABLET PO SCH (08:29)
[2017-11-30] MEDS: CLONIDINE 0.2MG TABLET PO SCH ×3 (08:30→20:38)
[2017-11-30] MEDS: TAMSULOSIN HCL 0.4MG SR CAPSULE PO SCH (08:36)
[2017-11-30 12:00] VITALS: BP 134/73
[2017-11-30] MEDS ORDERED: LIDOCAINE 5% PATCH TOP SCH (13:30)
[2017-11-30 16:00] VITALS: BP 153/85
[2017-11-30] MEDS: LIDOCAINE 5% PATCH TOP SCH ×2 (18:30→20:37)
[2017-11-30] MEDS ORDERED: HEPARIN SODIUM 1,000 UNIT/1ML VIAL IV NR (19:27)
[2017-11-30 20:00] VITALS: BP 141/90
[2017-12-01] VITALS: BP 174/84
[2017-12-01] MEDS: DILTIAZEM HCL 90MG TABLET PO SCH ×3 (01:08→12:00)
[2017-12-01] MEDS: CLONIDINE 0.1MG TABLET PO PRN (01:09)
[2017-12-01] MEDS: ALBUTEROL (0.083%) 2.5MG/3ML NEB HHN SCH (01:20)
[2017-12-01] MEDS: HYDROMORPHONE HCL/PF 2MG/ML CPJ IM PRN (03:44)
[2017-12-01 04:00] VITALS: BP 163/93
[2017-12-01] MEDS: CLONIDINE 0.2MG TABLET PO SCH ×2 (05:06→14:00)
[2017-12-01 06:34] LABS: BASOPHILS % 0.6 % (0.0-2.0); HEMATOCRIT. 24.6 % (42.0-52.0); HEMOGLOBIN. 8.2 g/dL (14.0-18.0); LYMPHOCYTES % 17.5 % (20.0-50.0); MEAN CORPUSCULAR HEMOGLOBIN 29.6 pg (28.0-32.0); MEAN CORPUSCULAR VOLUME 89.1 fL (80.0-94.0); MEAN PLATELET VOLUME 8.8 fl (7.4-10.4); MONOCYTES % 7.4 % (2.0-8.0); NEUTROPHILS % 70.5 % (40.0-76.0); PLATELET 175 x1000/uL (130-400); RED BLOOD CELL COUNT 2.76 mill/uL (4.7-6.1); RED CELL DISTRIBUTION WIDTH 15.9 % (11.6-14.6)
[2017-12-01 08:00] VITALS: BP 101/68
[2017-12-01] MEDS: LOSARTAN POTASSIUM 50 MG TABLET PO SCH (09:00)
[2017-12-01] MEDS: LIDOCAINE 5% PATCH TOP SCH (09:00)
[2017-12-01] MEDS: TAMSULOSIN HCL 0.4MG SR CAPSULE PO SCH (09:24)
[2017-12-01] MEDS: FAMOTIDINE 20MG TABLET PO SCH (09:24)
[2017-12-01 12:00] VITALS: BP 110/74
[2017-12-01] MEDS ORDERED: DILT90TA2 PO (14:12)
[2017-12-01] MEDS ORDERED: LOSA50TA3 PO (14:12)
[2017-12-01] MEDS ORDERED: TAMS-11 PO (14:12)
[2017-12-01] MEDS ORDERED: FAMO20TA8 PO (14:12)
[2017-12-01 16:07] VITALS: BP 110/74
[2017-12-01] MEDS ORDERED: EPOETIN ALFA 10000UNITS/ML VIAL SUBCUT SCH (21:00)
== END 2017-12-01 16:30 | disposition home or self-care (01) | DRG 425 ==
LOC: ER 18:02 → 7WST 21:27 → ENRESERV 22:06
PROVIDERS: ADMIT Internal Medicine; ATTEND Internal Medicine
PROC: 5A1D70Z Performance of Urinary Filtration, Intermittent, Less than 6 Hours Per Day (ICD-10-PCS; 2017-11-26)
PROC: 5A1D70Z Performance of Urinary Filtration, Intermittent, Less than 6 Hours Per Day (ICD-10-PCS; 2017-11-27)
PROC: 4A00X4Z Measurement of Central Nervous Electrical Activity, External Approach (ICD-10-PCS; principal; 2017-11-28)
PROC: 5A1D70Z Performance of Urinary Filtration, Intermittent, Less than 6 Hours Per Day (ICD-10-PCS; 2017-11-28)
PROC: 5A1D70Z Performance of Urinary Filtration, Intermittent, Less than 6 Hours Per Day (ICD-10-PCS; 2017-11-30)
DX: E87.70 Fluid overload, unspecified (principal); I13.2 Hypertensive heart and chronic kidney disease with heart failure and with stage 5 chronic kidney disease, or end stage renal disease; G93.40 Encephalopathy, unspecified; E87.5 Hyperkalemia; F11.20 Opioid dependence, uncomplicated; N18.6 End stage renal disease; I50.9 Heart failure, unspecified; G89.29 Other chronic pain; F32.9 Major depressive disorder, single episode, unspecified; F41.9 Anxiety disorder, unspecified; J44.9 Chronic obstructive pulmonary disease, unspecified; D63.8 Anemia in other chronic diseases classified elsewhere; F17.210 Nicotine dependence, cigarettes, uncomplicated; M25.512 Pain in left shoulder; F10.10 Alcohol abuse, uncomplicated; F12.10 Cannabis abuse, uncomplicated; R94.31 Abnormal electrocardiogram [ECG] [EKG]; B19.20 Unspecified viral hepatitis C without hepatic coma; N40.0 Benign prostatic hyperplasia without lower urinary tract symptoms; Z99.2 Dependence on renal dialysis; Z91.15 Patient's noncompliance with renal dialysis; Z79.899 Other long term (current) drug therapy; Z59.0 Homelessness; Z91.14 Patient's other noncompliance with medication regimen
CPT/HCPCS: 36415; 70450; 71045; 76700; 80048; 80053; 80061; 82140; 82550; 82553; 82962; 83735; 83880; 84100; 84132; 84443; 84484; 85025; 85610; 86705; 86706; 86709; 86803; 87040; 87340; 93005; 93306; 93970; 99285; G0482; J0885; J1170; J1644; J7030; J7611; J7620

== ENCOUNTER 2018-03-29 04:38 | Inpatient (IN) | payer OTHER ==
[~2018-03-29] VITALS: Ht 182.9 cm; Wt 63.5 kg
[~2018-03-29 04:38] MED LIST changes: -AMLO5TAB88 PO; -CALC667C PO; -CARV25TA47 PO; -CLON0.1T PO; +DILT90TA2 PO; +FAMO20TA8 PO; -FOLI0.8T23 PO; -HYDR-4001 PO; -LOSA50TA20 PO; +LOSA50TA3 PO; -NIFE60TA77 PO; +TAMS-11 PO; -TAMS0.4C31 PO
[2018-03-29] MEDS ORDERED: MORPHINE SULFATE 4 MG/ML CPJ (NOT FOR IM USE) IV STA (06:21)
[2018-03-29] MEDS ORDERED: ONDANSETRON HCL 4MG/2ML INJ IV STA (06:21)
[2018-03-29 07:23] LABS: BASOPHILS % 0.7 % (0.0-2.0); EOSINOPHILS % 2.6 % (0.0-5.0); HEMATOCRIT. 43.3 % (42.0-52.0); HEMOGLOBIN. 13.8 g/dL (14.0-18.0); LYMPHOCYTES % 20.2 % (20.0-50.0); MEAN CORPUSCULAR VOLUME 87.9 fL (80.0-94.0); MEAN PLATELET VOLUME 9.7 fl (7.4-10.4); MONOCYTES % 6.2 % (2.0-8.0); NEUTROPHILS % 70.3 % (40.0-76.0); PLATELET 195 x1000/uL (130-400); PROTHROMBIN TIME 10.4 sec (9.1-11.1); RED BLOOD CELL COUNT 4.92 mill/uL (4.7-6.1); RED CELL DISTRIBUTION WIDTH 19.6 % (11.6-14.6)
[2018-03-29 07:24] LABS: CHLORIDE 98 mEq/L (98-107)
[2018-03-29] MEDS ORDERED: FUROSEMIDE 100MG/10ML VIAL IV STA (07:45)
[2018-03-29] MEDS ORDERED: INSULIN REGULAR (HUMULIN R) 300UNITS/3ML IV ONE (07:45)
[2018-03-29] MEDS ORDERED: ALBUTEROL (0.083%) 2.5MG/3ML NEB HHN ONE (07:45)
[2018-03-29] MEDS ORDERED: DEXTROSE 50% WATER 50ML SYRINGE IV ONE (07:45)
[2018-03-29] MEDS ORDERED: SODIUM BICARBONATE 8.4% 1 MEQ/ML 50ML SYR IV ONE (07:45)
[2018-03-29 10:51] VITALS: BP 202/122
[2018-03-29 11:05] VITALS: BP 202/122
[2018-03-29] MEDS ORDERED: ACETAMINOPHEN 325MG TABLET PO PRN (11:30)
[2018-03-29] MEDS ORDERED: ONDANSETRON HCL 4MG/2ML INJ IV PRN (11:30)
[2018-03-29] MEDS ORDERED: IPRATROPIUM/ALBUTEROL 0.5-3(2.5)MG/3ML NEB INH PRN (11:30)
[2018-03-29] MEDS ORDERED: DOCUSATE SODIUM 100MG CAPSULE PO PRN (11:30)
[2018-03-29] MEDS: NIFEDIPINE XL 60MG TAB PO SCH (12:10)
[2018-03-29 12:30] VITALS: BP_SYST 190
[2018-03-29 14:27] LABS: PHOSPHORUS 10.3 mg/dL (2.5-4.9)
[2018-03-29] MEDS ORDERED: SODIUM POLYSTYRENE SULFONATE 15 G/60 ML BOT PO NR (14:30)
[2018-03-29 16:04] VITALS: BP 185/109
[2018-03-29] MEDS: HYDROCODONE/ACETAMINOPHEN 5/325MG TABLET PO PRN (19:37)
[2018-03-29 20:00] VITALS: BP 159/92
[2018-03-29] MEDS: MORPHINE SULFATE 4 MG/ML CPJ (NOT FOR IM USE) IV PRN (23:33)
[2018-03-30] VITALS: BP 157/97
[2018-03-30 04:00] VITALS: BP 168/98
[2018-03-30 07:23] LABS: HEMATOCRIT. 40.1 % (42.0-52.0); MEAN CORPUSCULAR HEMOGLOBIN 28.1 pg (28.0-32.0); MEAN CORPUSCULAR VOLUME 86.8 fL (80.0-94.0); RED CELL DISTRIBUTION WIDTH 19.9 % (11.6-14.6)
[2018-03-30 07:45] LABS: RED BLOOD CELL COUNT 4.61 mill/uL (4.7-6.1)
[2018-03-30 08:00] VITALS: BP 171/102
[2018-03-30 08:18] LABS: PHOSPHORUS 8.1 mg/dL (2.5-4.9)
[2018-03-30] MEDS: MORPHINE SULFATE 4 MG/ML CPJ (NOT FOR IM USE) IV PRN ×2 (09:09→19:45)
[2018-03-30] MEDS: NIFEDIPINE XL 60MG TAB PO SCH ×2 (09:09→21:54)
[2018-03-30] MEDS: CLONIDINE 0.1MG TABLET PO SCH ×3 (10:00→21:55)
[2018-03-30 10:25] LABS: MEAN PLATELET VOLUME 9.4 fl (7.4-10.4); PLATELET ESTIMATE NORMAL
[2018-03-30 10:26] LABS: PLATELET 170 x1000/uL (130-400)
[2018-03-30] MEDS ORDERED: SODIUM POLYSTYRENE SULFONATE 15 G/60 ML BOT PO NR (11:00)
[2018-03-30 12:00] VITALS: BP 142/89
[2018-03-30] MEDS: CALCIUM ACETATE 667MG CAPSULE PO SCH ×2 (12:50→17:50)
[2018-03-30 16:00] VITALS: BP 156/88
[2018-03-30 20:00] VITALS: BP 150/94
[2018-03-31] VITALS: BP 168/100
[2018-03-31] MEDS: MORPHINE SULFATE 4 MG/ML CPJ (NOT FOR IM USE) IV PRN ×3 (00:17→22:31)
[2018-03-31 04:00] VITALS: BP 164/100
[2018-03-31] MEDS: CLONIDINE 0.1MG TABLET PO SCH ×2 (05:58→14:00)
[2018-03-31 07:22] LABS: BASOPHILS % 1.1 % (0.0-2.0); EOSINOPHILS % 7.9 % (0.0-5.0); HEMATOCRIT. 41.8 % (42.0-52.0); HEMOGLOBIN. 13.3 g/dL (14.0-18.0); LYMPHOCYTES % 31.8 % (20.0-50.0); MEAN CORPUSCULAR HEMOGLOBIN 27.4 pg (28.0-32.0); MEAN CORPUSCULAR VOLUME 86.4 fL (80.0-94.0); MEAN PLATELET VOLUME 8.8 fl (7.4-10.4); MONOCYTES % 10.6 % (2.0-8.0); NEUTROPHILS % 48.6 % (40.0-76.0); PLATELET 173 x1000/uL (130-400); RED BLOOD CELL COUNT 4.84 mill/uL (4.7-6.1); RED CELL DISTRIBUTION WIDTH 18.9 % (11.6-14.6)
[2018-03-31 07:45] VITALS: BP 142/88
[2018-03-31 09:28] LABS: PHOSPHORUS 8.6 mg/dL (2.5-4.9)
[2018-03-31] MEDS: CALCIUM ACETATE 667MG CAPSULE PO SCH ×3 (09:59→17:37)
[2018-03-31] MEDS: NIFEDIPINE XL 60MG TAB PO SCH ×2 (09:59→21:08)
[2018-03-31 12:30] VITALS: BP 168/118
[2018-03-31] MEDS: CLONIDINE 0.1MG TABLET PO PRN (12:49)
[2018-03-31 15:55] VITALS: BP 132/94
[2018-03-31 20:40] VITALS: BP 156/92
[2018-03-31] MEDS: METOPROLOL TARTRATE 50MG TABLET PO SCH (21:08)
[2018-03-31] MEDS: CLONIDINE 0.2MG TABLET PO SCH (21:08)
[2018-03-31] MEDS: HYDROCODONE/ACETAMINOPHEN 5/325MG TABLET PO PRN (23:39)
[2018-04-01] VITALS (7 sets, daily range): BP systolic 138–189; BP diastolic 87–107
[2018-04-01] MEDS: MORPHINE SULFATE 4 MG/ML CPJ (NOT FOR IM USE) IV PRN ×3 (04:39→22:23)
[2018-04-01] MEDS: CLONIDINE 0.1MG TABLET PO PRN (04:39)
[2018-04-01] MEDS: CLONIDINE 0.2MG TABLET PO SCH ×3 (05:58→21:49)
[2018-04-01 08:15] LABS: HEMATOCRIT. 40.2 % (42.0-52.0); HEMOGLOBIN. 12.6 g/dL (14.0-18.0); MEAN CORPUSCULAR HEMOGLOBIN 27.3 pg (28.0-32.0); MEAN CORPUSCULAR VOLUME 87.3 fL (80.0-94.0); PLATELET 153 x1000/uL (130-400); RED BLOOD CELL COUNT 4.61 mill/uL (4.7-6.1); RED CELL DISTRIBUTION WIDTH 19.4 % (11.6-14.6)
[2018-04-01] MEDS: CALCIUM ACETATE 667MG CAPSULE PO SCH ×3 (08:37→17:30)
[2018-04-01] MEDS: NIFEDIPINE XL 60MG TAB PO SCH ×2 (08:37→21:49)
[2018-04-01] MEDS: METOPROLOL TARTRATE 50MG TABLET PO SCH ×2 (08:38→21:50)
[2018-04-01 08:48] LABS: PHOSPHORUS 7.3 mg/dL (2.5-4.9)
[2018-04-01 12:26] LABS: PLATELET ESTIMATE NORMAL
[2018-04-01] MEDS: LOSARTAN POTASSIUM 50 MG TABLET PO SCH (14:58)
[2018-04-02 03:46] LABS: *AMPHETAMINES SCREEN URINE NEGATIVE (NEGATIVE); *BARBITURATES SCREEN URINE NEGATIVE (NEGATIVE); *BENZODIAZEPINES SCREEN URINE NEGATIVE (NEGATIVE); *COCAINE SCREEN URINE PRESUMTIVE POSITIVE (NEGATIVE)
[2018-04-02 03:47] LABS: CANNABINOID URINE SCREEN NEGATIVE (NEGATIVE); METHADONE URINE SCREEN NEGATIVE (NEGATIVE); OPIATES URINE SCREEN PRESUMTIVE POSITIVE (NEGATIVE); PHENCYCLIDINE URINE SCREEN NEGATIVE (NEGATIVE)
[2018-04-02 04:00] VITALS: BP 136/83
[2018-04-02] MEDS: MORPHINE SULFATE 4 MG/ML CPJ (NOT FOR IM USE) IV PRN ×2 (04:25→16:45)
[2018-04-02] MEDS: CLONIDINE 0.2MG TABLET PO SCH ×3 (06:00→21:59)
[2018-04-02 07:18] LABS: BASOPHILS % 0.7 % (0.0-2.0); EOSINOPHILS % 10.7 % (0.0-5.0); HEMATOCRIT. 39.6 % (42.0-52.0); HEMOGLOBIN. 12.7 g/dL (14.0-18.0); MEAN CORPUSCULAR HEMOGLOBIN 27.7 pg (28.0-32.0); MEAN CORPUSCULAR VOLUME 85.9 fL (80.0-94.0); MEAN PLATELET VOLUME 9.1 fl (7.4-10.4); MONOCYTES % 9.9 % (2.0-8.0); NEUTROPHILS % 44.7 % (40.0-76.0); PLATELET 171 x1000/uL (130-400); RED BLOOD CELL COUNT 4.61 mill/uL (4.7-6.1)
[2018-04-02 07:26] LABS: CHLORIDE 96 mEq/L (98-107)
[2018-04-02 07:31] LABS: PHOSPHORUS 7.1 mg/dL (2.5-4.9)
[2018-04-02 08:00] VITALS: BP 158/99
[2018-04-02] MEDS: CALCIUM ACETATE 667MG CAPSULE PO SCH ×3 (09:01→16:41)
[2018-04-02] MEDS: LOSARTAN POTASSIUM 50 MG TABLET PO SCH (09:01)
[2018-04-02] MEDS: METOPROLOL TARTRATE 50MG TABLET PO SCH ×2 (09:02→20:06)
[2018-04-02] MEDS: NIFEDIPINE XL 60MG TAB PO SCH ×2 (09:02→20:06)
[2018-04-02] MEDS: HYDROCODONE/APAP 7.5/325MG 1 TAB TABLET PO PRN ×2 (09:02→20:07)
[2018-04-02 12:00] VITALS: BP 161/86
[2018-04-02 16:00] VITALS: BP 137/96
[2018-04-02 20:00] VITALS: BP 150/87
[2018-04-03] VITALS: BP 154/85
[2018-04-03] MEDS: HYDROCODONE/APAP 7.5/325MG 1 TAB TABLET PO PRN (01:44)
[2018-04-03] MEDS: MORPHINE SULFATE 4 MG/ML CPJ (NOT FOR IM USE) IV PRN ×3 (01:54→20:20)
[2018-04-03 04:00] VITALS: BP 139/90
[2018-04-03] MEDS: CLONIDINE 0.2MG TABLET PO SCH (05:59)
[2018-04-03 07:10] LABS: BASOPHILS % 0.8 % (0.0-2.0); EOSINOPHILS % 10.4 % (0.0-5.0); HEMATOCRIT. 38.2 % (42.0-52.0); HEMOGLOBIN. 12.1 g/dL (14.0-18.0); LYMPHOCYTES % 31.4 % (20.0-50.0); MEAN CORPUSCULAR HEMOGLOBIN 27.4 pg (28.0-32.0); MEAN CORPUSCULAR VOLUME 86.2 fL (80.0-94.0); MEAN PLATELET VOLUME 9.3 fl (7.4-10.4); MONOCYTES % 10.6 % (2.0-8.0); NEUTROPHILS % 46.8 % (40.0-76.0); PLATELET 130 x1000/uL (130-400); RED BLOOD CELL COUNT 4.44 mill/uL (4.7-6.1); RED CELL DISTRIBUTION WIDTH 19.3 % (11.6-14.6)
[2018-04-03 07:13] LABS: PHOSPHORUS 5.9 mg/dL (2.5-4.9)
[2018-04-03 08:00] VITALS: BP 151/56
[2018-04-03] MEDS: CALCIUM ACETATE 667MG CAPSULE PO SCH ×3 (08:24→17:11)
[2018-04-03] MEDS: LOSARTAN POTASSIUM 50 MG TABLET PO SCH (08:25)
[2018-04-03] MEDS: NIFEDIPINE XL 60MG TAB PO SCH ×2 (08:25→21:17)
[2018-04-03] MEDS: METOPROLOL TARTRATE 50MG TABLET PO SCH (08:25)
[2018-04-03 12:00] VITALS: BP 127/87
[2018-04-03 16:01] VITALS: BP_SYST 158; BP_SYST 96; BP_DIAS 39; BP_DIAS 93
[2018-04-03] MEDS: CLONIDINE 0.1MG TABLET PO PRN (17:07)
[2018-04-03] MEDS: CLONIDINE 0.3MG TABLET PO SCH ×2 (17:28→21:17)
[2018-04-03] MEDS: METOPROLOL TARTRATE 100MG TABLET PO SCH (21:17)
[2018-04-04] MEDS: HYDROCODONE/APAP 7.5/325MG 1 TAB TABLET PO PRN (02:14)
[2018-04-04] MEDS: CLONIDINE 0.3MG TABLET PO SCH ×3 (05:58→23:55)
[2018-04-04 06:29] LABS: BASOPHILS % 0.5 % (0.0-2.0); HEMATOCRIT. 37.2 % (42.0-52.0); LYMPHOCYTES % 19.5 % (20.0-50.0); MEAN CORPUSCULAR HEMOGLOBIN 27.5 pg (28.0-32.0); MEAN CORPUSCULAR VOLUME 85.7 fL (80.0-94.0); MEAN PLATELET VOLUME 9.1 fl (7.4-10.4); MONOCYTES % 7.2 % (2.0-8.0); NEUTROPHILS % 64.8 % (40.0-76.0); PLATELET 146 x1000/uL (130-400); RED BLOOD CELL COUNT 4.34 mill/uL (4.7-6.1); RED CELL DISTRIBUTION WIDTH 19.3 % (11.6-14.6)
[2018-04-04 06:58] LABS: PHOSPHORUS 5.1 mg/dL (2.5-4.9)
[2018-04-04 08:00] VITALS: BP 144/88
[2018-04-04] MEDS: CALCIUM ACETATE 667MG CAPSULE PO SCH ×3 (08:30→17:48)
[2018-04-04] MEDS: METOPROLOL TARTRATE 100MG TABLET PO SCH ×2 (09:00→23:55)
[2018-04-04] MEDS: NIFEDIPINE XL 60MG TAB PO SCH ×2 (09:00→23:54)
[2018-04-04] MEDS: LOSARTAN POTASSIUM 50 MG TABLET PO SCH (09:00)
[2018-04-04 12:00] VITALS: BP 152/71
[2018-04-04 15:03] LABS: HEPATITIS B SURFACE ANTIGEN NEGATIVE
[2018-04-04 15:33] LABS: HEPATITIS A AB IGM NEGATIVE (NEGATIVE)
[2018-04-04 16:00] VITALS: BP 126/72
[2018-04-04] MEDS: LORAZEPAM 0.5MG TABLET PO PRN (20:34)
[2018-04-05 00:01] VITALS: BP 176/93
[2018-04-05] MEDS: LORAZEPAM 0.5MG TABLET PO PRN ×3 (02:12→22:59)
[2018-04-05 04:01] VITALS: BP 182/92
[2018-04-05] MEDS: CLONIDINE 0.3MG TABLET PO SCH ×3 (06:17→21:36)
[2018-04-05 07:27] LABS: BASOPHILS % 1.2 % (0.0-2.0); EOSINOPHILS % 9.8 % (0.0-5.0); HEMATOCRIT. 36.2 % (42.0-52.0); HEMOGLOBIN. 11.6 g/dL (14.0-18.0); LYMPHOCYTES % 28.1 % (20.0-50.0); MEAN CORPUSCULAR HEMOGLOBIN 27.4 pg (28.0-32.0); MEAN CORPUSCULAR VOLUME 85.3 fL (80.0-94.0); MEAN PLATELET VOLUME 9.9 fl (7.4-10.4); NEUTROPHILS % 51.9 % (40.0-76.0); PLATELET 128 x1000/uL (130-400); RED BLOOD CELL COUNT 4.24 mill/uL (4.7-6.1); RED CELL DISTRIBUTION WIDTH 19.1 % (11.6-14.6)
[2018-04-05 07:50] LABS: PHOSPHORUS 5.7 mg/dL (2.5-4.9)
[2018-04-05 08:00] VITALS: BP 160/85
[2018-04-05] MEDS: NIFEDIPINE XL 60MG TAB PO SCH ×2 (09:36→20:41)
[2018-04-05] MEDS: METOPROLOL TARTRATE 100MG TABLET PO SCH ×2 (09:36→20:41)
[2018-04-05] MEDS: CALCIUM ACETATE 667MG CAPSULE PO SCH ×3 (09:36→17:50)
[2018-04-05] MEDS: LOSARTAN POTASSIUM 50 MG TABLET PO SCH (09:36)
[2018-04-05 12:31] VITALS: BP 150/90
[2018-04-05] MEDS ORDERED: SODIUM POLYSTYRENE SULFONATE 15 G/60 ML BOT PO NR ×2 (13:30→16:00)
[2018-04-05 16:00] VITALS: BP 173/89
[2018-04-06 04:00] VITALS: BP 159/92
[2018-04-06] MEDS: LORAZEPAM 0.5MG TABLET PO PRN (05:30)
[2018-04-06] MEDS: CLONIDINE 0.3MG TABLET PO SCH ×2 (05:30→14:00)
[2018-04-06] MEDS: CALCIUM ACETATE 667MG CAPSULE PO SCH ×2 (07:50→12:50)
[2018-04-06 07:58] LABS: BASOPHILS % 0.8 % (0.0-2.0); EOSINOPHILS % 7.8 % (0.0-5.0); HEMATOCRIT. 35.5 % (42.0-52.0); HEMOGLOBIN. 11.3 g/dL (14.0-18.0); LYMPHOCYTES % 25.8 % (20.0-50.0); MEAN CORPUSCULAR HEMOGLOBIN 27.1 pg (28.0-32.0); MEAN CORPUSCULAR VOLUME 84.9 fL (80.0-94.0); MONOCYTES % 7.8 % (2.0-8.0); NEUTROPHILS % 57.8 % (40.0-76.0); PLATELET 139 x1000/uL (130-400); RED BLOOD CELL COUNT 4.18 mill/uL (4.7-6.1); RED CELL DISTRIBUTION WIDTH 18.7 % (11.6-14.6)
[2018-04-06 08:19] VITALS: BP 157/84
[2018-04-06] MEDS: METOPROLOL TARTRATE 100MG TABLET PO SCH (08:48)
[2018-04-06] MEDS: LOSARTAN POTASSIUM 50 MG TABLET PO SCH (08:48)
[2018-04-06] MEDS: NIFEDIPINE XL 60MG TAB PO SCH (08:49)
[2018-04-06 09:55] LABS: PHOSPHORUS 6.6 mg/dL (2.5-4.9)
[2018-04-06 10:43] VITALS: BP 150/80
[2018-04-06] MEDS ORDERED: NIFE60TA78 PO (11:56)
[2018-04-06] MEDS ORDERED: METO100T16 PO (11:56)
[2018-04-06] MEDS ORDERED: LOSA50TA20 MT (11:56)
[2018-04-06 12:00] VITALS: BP 140/81
== END 2018-04-06 16:18 | disposition home or self-care (01) | DRG 199 ==
LOC: ER 05:17 → 6WST 08:11 → EDBEDREQ 08:14 → ENRESERV 09:51
PROVIDERS: ADMIT Internal Medicine; ATTEND Internal Medicine
PROC: 5A1D70Z Performance of Urinary Filtration, Intermittent, Less than 6 Hours Per Day (ICD-10-PCS; principal; 2018-03-29)
PROC: 5A1D70Z Performance of Urinary Filtration, Intermittent, Less than 6 Hours Per Day (ICD-10-PCS; 2018-03-30)
PROC: 5A1D70Z Performance of Urinary Filtration, Intermittent, Less than 6 Hours Per Day (ICD-10-PCS; 2018-04-01)
PROC: 5A1D70Z Performance of Urinary Filtration, Intermittent, Less than 6 Hours Per Day (ICD-10-PCS; 2018-04-03)
PROC: 5A1D70Z Performance of Urinary Filtration, Intermittent, Less than 6 Hours Per Day (ICD-10-PCS; 2018-04-05)
DX: I16.1 Hypertensive emergency (principal); I50.33 Acute on chronic diastolic (congestive) heart failure; E11.22 Type 2 diabetes mellitus with diabetic chronic kidney disease; E87.2 Acidosis; E83.39 Other disorders of phosphorus metabolism; E87.5 Hyperkalemia; I13.2 Hypertensive heart and chronic kidney disease with heart failure and with stage 5 chronic kidney disease, or end stage renal disease; N18.6 End stage renal disease; F41.9 Anxiety disorder, unspecified; F11.10 Opioid abuse, uncomplicated; F32.9 Major depressive disorder, single episode, unspecified; B19.20 Unspecified viral hepatitis C without hepatic coma; N25.81 Secondary hyperparathyroidism of renal origin; N40.0 Benign prostatic hyperplasia without lower urinary tract symptoms; F17.200 Nicotine dependence, unspecified, uncomplicated; Z59.0 Homelessness; Z82.49 Family history of ischemic heart disease and other diseases of the circulatory system; Z83.3 Family history of diabetes mellitus; Z91.15 Patient's noncompliance with renal dialysis; Z99.2 Dependence on renal dialysis; Z91.19 Patient's noncompliance with other medical treatment and regimen; Z79.899 Other long term (current) drug therapy
CPT/HCPCS: 36415; 71045; 80048; 80061; 80305; 82962; 83036; 83735; 84100; 86705; 86709; 86803; 87340; 93005; 96374; 96375; 99285; C1893; J1815; J1940; J2270; J2405; J3490

== ENCOUNTER 2018-04-11 23:27 | Inpatient (IN) | payer OTHER ==
[~2018-04-11] VITALS: Ht 185.4 cm; Wt 61.5 kg
[~2018-04-11 23:27] MED LIST changes: -DILT90TA2 PO; +LOSA50TA20 MT; -LOSA50TA3 PO; +METO100T16 PO; +NIFE60TA78 PO
[2018-04-12] VITALS (10 sets, daily range): BP systolic 115–212; BP diastolic 69–143
[2018-04-12] MEDS ORDERED: HYDROCODONE/ACETAMINOPHEN 5/325MG TABLET PO ONE (00:30)
[2018-04-12] MEDS ORDERED: LABETALOL HCL 20MG/4ML CARPUJECT IV ONE (00:30)
[2018-04-12 00:53] LABS: EOSINOPHILS % 10.5 % (0.0-5.0); HEMATOCRIT. 37.3 % (42.0-52.0); HEMOGLOBIN. 11.9 g/dL (14.0-18.0); LYMPHOCYTES % 37.8 % (20.0-50.0); MEAN CORPUSCULAR HEMOGLOBIN 26.9 pg (28.0-32.0); MEAN CORPUSCULAR VOLUME 84.3 fL (80.0-94.0); MEAN PLATELET VOLUME 8.1 fl (7.4-10.4); NEUTROPHILS % 38.7 % (40.0-76.0); PLATELET 181 x1000/uL (130-400); RED BLOOD CELL COUNT 4.42 mill/uL (4.7-6.1); RED CELL DISTRIBUTION WIDTH 19.4 % (11.6-14.6)
[2018-04-12 00:57] LABS: CHLORIDE 103 mEq/L (98-107)
[2018-04-12] MEDS ORDERED: CALCIUM CHLORIDE 1GM/10ML SYR IV ONE (01:30)
[2018-04-12] MEDS ORDERED: SODIUM POLYSTYRENE SULFONATE 15 G/60 ML BOT PO ONE (01:30)
[2018-04-12] MEDS ORDERED: ALBUTEROL (0.083%) 2.5MG/3ML NEB HHN ONE (01:30)
[2018-04-12] MEDS ORDERED: SODIUM BICARBONATE 8.4% 1 MEQ/ML 50ML SYR IV ONE (01:30)
[2018-04-12] MEDS ORDERED: DEXTROSE 50% WATER 50ML SYRINGE IV ONE (01:30)
[2018-04-12] MEDS ORDERED: INSULIN REGULAR (HUMULIN R) 300UNITS/3ML IV ONE (01:30)
[2018-04-12] MEDS ORDERED: ALBUTEROL (0.083%) 2.5MG/3ML NEB HHN STA (04:45)
[2018-04-12] MEDS ORDERED: LABETALOL 5MG/ML SYR 20 MG/4 ML SYRINGE IV STA (07:20)
[2018-04-12] MEDS ORDERED: GABA-529 MT (07:44)
[2018-04-12] MEDS ORDERED: SUCR1TAB MT (07:44)
[2018-04-12] MEDS ORDERED: ISOS20TA8 MT (07:47)
[2018-04-12] MEDS ORDERED: LABE200T28 MT (07:47)
[2018-04-12] MEDS ORDERED: LABETALOL HCL 20MG/4ML CARPUJECT IV NR (08:30)
[2018-04-12] MEDS ORDERED: CLONIDINE 0.1MG TABLET PO PRN (09:00)
[2018-04-12] MEDS ORDERED: ACETAMINOPHEN 325MG TABLET PO PRN (09:00)
[2018-04-12] MEDS ORDERED: ONDANSETRON HCL 4MG/2ML INJ IV PRN (09:00)
[2018-04-12] MEDS: NIFEDIPINE XL 60MG TAB PO SCH ×2 (09:23→21:27)
[2018-04-12] MEDS: METOPROLOL TARTRATE 50MG TABLET PO SCH ×2 (09:23→21:28)
[2018-04-12] MEDS: ENOXAPARIN 30MG/0.3ML SYR SUBCUT SCH (09:24)
[2018-04-12] MEDS ORDERED: MORPHINE SULFATE 4 MG/ML CPJ (NOT FOR IM USE) IV NR (12:30)
[2018-04-12] MEDS: HYDRALAZINE HCL 100MG TABLET PO SCH ×2 (13:21→21:28)
[2018-04-12] MEDS: CLONIDINE 0.3MG TABLET PO SCH ×2 (13:21→21:27)
[2018-04-12] MEDS ORDERED: METOPROLOL TARTRATE 50MG TABLET PO SCH (21:00)
[2018-04-12] MEDS: HYDROCODONE/ACETAMINOPHEN 5/325MG TABLET PO PRN (21:31)
[2018-04-12 23:18] LABS: *AMPHETAMINES SCREEN URINE NEGATIVE (NEGATIVE); *BARBITURATES SCREEN URINE NEGATIVE (NEGATIVE); *BENZODIAZEPINES SCREEN URINE NEGATIVE (NEGATIVE); *COCAINE SCREEN URINE PRESUMTIVE POSITIVE (NEGATIVE); CANNABINOID URINE SCREEN NEGATIVE (NEGATIVE)
[2018-04-12 23:19] LABS: METHADONE URINE SCREEN NEGATIVE (NEGATIVE); OPIATES URINE SCREEN PRESUMTIVE POSITIVE (NEGATIVE); PHENCYCLIDINE URINE SCREEN NEGATIVE (NEGATIVE)
[2018-04-13] VITALS: BP 126/89
[2018-04-13 04:47] VITALS: BP 134/83
[2018-04-13] MEDS: HYDRALAZINE HCL 100MG TABLET PO SCH ×2 (05:57→15:44)
[2018-04-13] MEDS: CLONIDINE 0.3MG TABLET PO SCH ×2 (05:57→15:45)
[2018-04-13] MEDS: HYDROCODONE/ACETAMINOPHEN 5/325MG TABLET PO PRN (06:02)
[2018-04-13 06:07] LABS: BASOPHILS % 0.8 % (0.0-2.0); EOSINOPHILS % 10.8 % (0.0-5.0); HEMATOCRIT. 36.3 % (42.0-52.0); HEMOGLOBIN. 11.7 g/dL (14.0-18.0); LYMPHOCYTES % 34.2 % (20.0-50.0); MEAN CORPUSCULAR HEMOGLOBIN 26.8 pg (28.0-32.0); MEAN CORPUSCULAR VOLUME 83.4 fL (80.0-94.0); MEAN PLATELET VOLUME 8.3 fl (7.4-10.4); MONOCYTES % 11.2 % (2.0-8.0); PLATELET 170 x1000/uL (130-400); RED BLOOD CELL COUNT 4.36 mill/uL (4.7-6.1); RED CELL DISTRIBUTION WIDTH 19.2 % (11.6-14.6)
[2018-04-13 06:22] LABS: PHOSPHORUS 6.4 mg/dL (2.5-4.9)
[2018-04-13] MEDS: METOPROLOL TARTRATE 50MG TABLET PO SCH (09:00)
[2018-04-13] MEDS ORDERED: SODIUM POLYSTYRENE SULFONATE 15 G/60 ML BOT PO NR ×2 (10:00→17:30)
[2018-04-13] MEDS: ENOXAPARIN 30MG/0.3ML SYR SUBCUT SCH (10:04)
[2018-04-13] MEDS: NIFEDIPINE XL 60MG TAB PO SCH (10:05)
[2018-04-13 15:45] VITALS: BP 130/68
[2018-04-13 16:24] VITALS: BP 130/68
[2018-04-26 13:06] LABS: BARBITURATE SCREEN Negative ug/mL (Cutoff:0.1); BENZODIAZEPINE SCREEN Negative ng/mL (Cutoff:20); OPIATES SCREEN ++POSITIVE++ ng/mL (Cutoff:5); PHENCYCLIDINE SCREEN Negative ng/mL (Cutoff:8)
== END 2018-04-13 17:25 | disposition home or self-care (01) | DRG 199 ==
LOC: ER 23:27 → 3WST 04-12 03:17 → EDBEDREQSVC 04-12 03:19 → EDBEDREQTM 04-12 03:19 → EDBEDREQ 04-12 03:19 → ENRESERV 04-12 03:22 → 6WST 04-13
PROVIDERS: ADMIT Internal Medicine; ATTEND Internal Medicine
PROC: 5A1D70Z Performance of Urinary Filtration, Intermittent, Less than 6 Hours Per Day (ICD-10-PCS; principal; 2018-04-12)
DX: I16.0 Hypertensive urgency (principal); I50.33 Acute on chronic diastolic (congestive) heart failure; E11.22 Type 2 diabetes mellitus with diabetic chronic kidney disease; N18.6 End stage renal disease; E87.5 Hyperkalemia; I13.2 Hypertensive heart and chronic kidney disease with heart failure and with stage 5 chronic kidney disease, or end stage renal disease; Z99.2 Dependence on renal dialysis; D63.8 Anemia in other chronic diseases classified elsewhere; B19.20 Unspecified viral hepatitis C without hepatic coma; F41.9 Anxiety disorder, unspecified; F14.10 Cocaine abuse, uncomplicated; N40.0 Benign prostatic hyperplasia without lower urinary tract symptoms; F32.9 Major depressive disorder, single episode, unspecified; Z91.15 Patient's noncompliance with renal dialysis; F17.200 Nicotine dependence, unspecified, uncomplicated; Z59.0 Homelessness; Z82.49 Family history of ischemic heart disease and other diseases of the circulatory system; Z79.899 Other long term (current) drug therapy; Z71.51 Drug abuse counseling and surveillance of drug abuser
CPT/HCPCS: 36415; 71045; 80048; 80305; 80307; 83735; 84100; 84132; 93005; 94644; 96374; 96375; 99291; J1650; J1815; J2270; J3490; J7611

== ENCOUNTER 2018-05-22 00:54 | Emergency (ER) | payer OTHER ==
[~2018-05-22] VITALS: Ht 180.3 cm; Wt 59.0 kg
[~2018-05-22 00:54] MED LIST changes: +GABA-529 MT; -LOSA50TA20 MT; +SUCR1TAB MT
[2018-05-22] MEDS ORDERED: ONDANSETRON HCL 4MG/2ML INJ IV STA (01:47)
[2018-05-22] MEDS ORDERED: MORPHINE SULFATE 4 MG/ML CPJ (NOT FOR IM USE) IV STA (01:47)
[2018-05-22 02:35] LABS: CHLORIDE 103 mEq/L (98-107)
[2018-05-22 02:41] LABS: HEMATOCRIT. 35.1 % (42.0-52.0); HEMOGLOBIN. 10.8 g/dL (14.0-18.0); MEAN CORPUSCULAR HEMOGLOBIN 26.3 pg (28.0-32.0); MEAN CORPUSCULAR VOLUME 85.6 fL (80.0-94.0); MEAN PLATELET VOLUME 8.3 fl (7.4-10.4); PLATELET 188 x1000/uL (130-400); RED CELL DISTRIBUTION WIDTH 20.3 % (11.6-14.6)
[2018-05-22] MEDS ORDERED: KETOROLAC 15MG/ML VIAL IV ONE (03:15)
[2018-05-22 09:33] LABS: PLATELET ESTIMATE NORMAL
[2018-05-22] MEDS ORDERED: KETOROLAC 30MG/ML VIAL IV ONE (10:15)
[2018-05-22 12:50] VITALS: BP 160/83
== END 2018-05-22 12:52 | disposition short-term general hospital (02) ==
LOC: ER 00:54 → CANRESERV 10:51 → CANBEDREQ 11:04 → ER 12:52
DX: S09.90XA Unspecified injury of head, initial encounter (principal); S30.0XXA Contusion of lower back and pelvis, initial encounter; I12.0 Hypertensive chronic kidney disease with stage 5 chronic kidney disease or end stage renal disease; N18.6 End stage renal disease; Z99.2 Dependence on renal dialysis; W22.8XXA Striking against or struck by other objects, initial encounter; Y93.89 Activity, other specified; Y92.89 Other specified places as the place of occurrence of the external cause; Y99.8 Other external cause status; Z98.890 Other specified postprocedural states; Z79.899 Other long term (current) drug therapy
CPT/HCPCS: 36415; 70450; 71045; 72070; 72100; 72170; 80053; 84484; 85025; 93005; 96374; 96375; 96376; 99285; J1885; J2270; J2405

== ENCOUNTER 2018-09-26 21:31 | Emergency (ER) | payer OTHER ==
[~2018-09-26] VITALS: Ht 175.3 cm; Wt 75.0 kg
[2018-09-26 22:41] LABS: HEMATOCRIT 42.6 % (42.0-52.0); HEMOGLOBIN 13.8 g/dL (14.0-18.0); MEAN CORPUSCULAR HEMOGLOBIN 27.7 pg (28.0-32.0); MEAN CORPUSCULAR VOLUME 85.6 fL (80.0-94.0); PLATELET 210 x1000/uL (130-400); RED BLOOD CELL COUNT 4.98 mill/uL (4.7-6.1); RED CELL DISTRIBUTION WIDTH 21.4 % (11.6-14.6)
[2018-09-26 22:44] LABS: CHLORIDE 96 mEq/L (98-107)
[2018-09-26] MEDS ORDERED: KETOROLAC 30MG/ML VIAL IV ONE (22:45)
[2018-09-27] MEDS ORDERED: MORPHINE SULFATE 4 MG/ML CPJ (NOT FOR IM USE) IV ONE (01:00)
[2018-09-27 08:08] VITALS: BP 164/106
== END 2018-09-27 08:26 | disposition short-term general hospital (02) ==
LOC: ER 23:17 → EDBEDREQ 09-27 02:00 → EDBEDREQTM 09-27 02:00 → ENRESERV 09-27 02:16 → CANRESERV 09-27 02:16 → CANBEDREQ 09-27 08:17 → ER 09-27 08:26
DX: M54.5 Low back pain (principal); G89.29 Other chronic pain; I12.0 Hypertensive chronic kidney disease with stage 5 chronic kidney disease or end stage renal disease; N18.6 End stage renal disease; Z98.1 Arthrodesis status; Z99.2 Dependence on renal dialysis; W05.0XXA Fall from non-moving wheelchair, initial encounter; Y93.89 Activity, other specified; Y92.018 Other place in single-family (private) house as the place of occurrence of the external cause
CPT/HCPCS: 36415; 72125; 72128; 72131; 74176; 80053; 82962; 85027; 96374; 96375; 99285; J1885; J2270

== ENCOUNTER 2018-11-05 04:52 | Inpatient (IN) | payer OTHER ==
[2018-11-05] VITALS (25 sets, daily range): BP systolic 136–230; BP diastolic 52–199
[~2018-11-05] VITALS: Ht 182.9 cm; Wt 53.8 kg
[2018-11-05] MEDS ORDERED: ONDANSETRON HCL 4MG/2ML INJ IV STA (06:10)
[2018-11-05] MEDS ORDERED: SODIUM CHLORIDE 0.9% 1,000 ML IV ONE (06:10)
[2018-11-05] MEDS ORDERED: MORPHINE SULFATE 4 MG/ML CPJ (NOT FOR IM USE) IV STA (06:10)
[2018-11-05 06:21] LABS: CHLORIDE 108 mEq/L (98-107)
[2018-11-05 06:31] LABS: INR 1.1; PROTHROMBIN TIME 10.8 sec (9.6-11.0)
[2018-11-05 06:41] LABS: BASOPHILS % 0.8 % (0.0-2.0); HEMATOCRIT. 38.8 % (42.0-52.0); HEMOGLOBIN. 12.4 g/dL (14.0-18.0); LYMPHOCYTES % 15.4 % (20.0-50.0); MEAN CORPUSCULAR HEMOGLOBIN 27.9 pg (28.0-32.0); MEAN CORPUSCULAR VOLUME 87.1 fL (80.0-94.0); MEAN PLATELET VOLUME 8.4 fl (7.4-10.4); MONOCYTES % 6.3 % (2.0-8.0); NEUTROPHILS % 75.5 % (40.0-76.0); PLATELET 149 x1000/uL (130-400); RED BLOOD CELL COUNT 4.45 mill/uL (4.7-6.1); RED CELL DISTRIBUTION WIDTH 20.4 % (11.6-14.6)
[2018-11-05] MEDS ORDERED: HYDRALAZINE 20MG/ML VIAL IV ONE (07:15)
[2018-11-05] MEDS ORDERED: MORPHINE SULFATE 4 MG/ML CPJ (NOT FOR IM USE) IV ONE (07:15)
[2018-11-05] MEDS ORDERED: ONDANSETRON HCL 4MG/2ML INJ IV PRN (09:00)
[2018-11-05] MEDS: NIFEDIPINE XL 60MG TAB PO SCH ×2 (09:00→15:45)
[2018-11-05] MEDS ORDERED: ACETAMINOPHEN 325MG TABLET PO PRN (09:00)
[2018-11-05] MEDS: LOSARTAN POTASSIUM 100 MG TABLET PO SCH ×2 (09:00→15:45)
[2018-11-05] MEDS ORDERED: LABETALOL 5MG/ML SYR 20 MG/4 ML SYRINGE IV NR ×2 (09:00→17:45)
[2018-11-05] MEDS: MORPHINE SULFATE 2 MG/ML CPJ (NOT FOR IM USE) IV PRN ×2 (10:09→19:07)
[2018-11-05] MEDS ORDERED: NEPVIT PO (11:25)
[2018-11-05] MEDS: HYDRALAZINE 20MG/ML VIAL IV PRN ×2 (11:46→20:45)
[2018-11-05] MEDS: MINOXIDIL 2.5MG TABLET PO SCH (17:06)
[2018-11-05] MEDS ORDERED: LABETALOL 5MG/ML SYR 20 MG/4 ML SYRINGE IV ONE (17:15)
[2018-11-05] MEDS ORDERED: NICARDIPINE 40MG/200ML PREMIX 200 ML IV SCH (17:15)
[2018-11-05] MEDS: NICARDIPINE 50 MG in SODIUM CHLORIDE 0.9% 230 ML IV PRN ×2 (19:20→23:08)
[2018-11-06] VITALS (72 sets, daily range): BP systolic 119–163; BP diastolic 48–96
[2018-11-06] MEDS: NICARDIPINE 50 MG in SODIUM CHLORIDE 0.9% 230 ML IV PRN ×2 (02:34→05:56)
[2018-11-06 05:16] LABS: BASOPHILS % 0.7 % (0.0-2.0); EOSINOPHILS % 1.5 % (0.0-5.0); HEMATOCRIT. 37.3 % (42.0-52.0); HEMOGLOBIN. 11.9 g/dL (14.0-18.0); LYMPHOCYTES % 21.4 % (20.0-50.0); MEAN CORPUSCULAR HEMOGLOBIN 27.6 pg (28.0-32.0); MEAN CORPUSCULAR VOLUME 86.5 fL (80.0-94.0); MEAN PLATELET VOLUME 8.3 fl (7.4-10.4); MONOCYTES % 9.9 % (2.0-8.0); NEUTROPHILS % 66.5 % (40.0-76.0); PLATELET 131 x1000/uL (130-400); RED BLOOD CELL COUNT 4.31 mill/uL (4.7-6.1); RED CELL DISTRIBUTION WIDTH 20.5 % (11.6-14.6)
[2018-11-06] MEDS ORDERED: LIDOCAINE HCL 1% 20ML VIAL (Pyxis) INJ ONE (08:27)
[2018-11-06] MEDS: LOSARTAN POTASSIUM 100 MG TABLET PO SCH (08:44)
[2018-11-06] MEDS: MINOXIDIL 2.5MG TABLET PO SCH ×2 (08:44→17:11)
[2018-11-06] MEDS ORDERED: NIFEDIPINE XL 60MG TAB PO SCH ×2 (09:00)
[2018-11-06] MEDS ORDERED: METOPROLOL TARTRATE 50MG TABLET PO SCH (09:00)
[2018-11-06] MEDS: MORPHINE SULFATE 2 MG/ML CPJ (NOT FOR IM USE) IV PRN (09:41)
[2018-11-06] MEDS ORDERED: HYDROCODONE/ACETAMINOPHEN 5/325MG TABLET PO NR (17:00)
== END 2018-11-06 21:00 | disposition home or self-care (01) | DRG 194 ==
LOC: ER 05:07 → 6WST 07:54 → EDBEDREQ 08:27 → EDBEDREQTM 08:27 → ENRESERV 10:02 → MICUNO 18:39
PROVIDERS: ADMIT Internal Medicine; ATTEND Internal Medicine
PROC: 5A1D70Z Performance of Urinary Filtration, Intermittent, Less than 6 Hours Per Day (ICD-10-PCS; 2018-11-05)
PROC: 05H533Z Insertion of Infusion Device into Right Subclavian Vein, Percutaneous Approach (ICD-10-PCS; principal; 2018-11-06)
PROC: B546ZZA Ultrasonography of Right Subclavian Vein, Guidance (ICD-10-PCS; 2018-11-06)
PROC: 5A1D70Z Performance of Urinary Filtration, Intermittent, Less than 6 Hours Per Day (ICD-10-PCS; 2018-11-06)
DX: I13.2 Hypertensive heart and chronic kidney disease with heart failure and with stage 5 chronic kidney disease, or end stage renal disease (principal); N18.6 End stage renal disease; I16.0 Hypertensive urgency; I50.33 Acute on chronic diastolic (congestive) heart failure; B19.20 Unspecified viral hepatitis C without hepatic coma; R19.7 Diarrhea, unspecified; F17.210 Nicotine dependence, cigarettes, uncomplicated; F32.9 Major depressive disorder, single episode, unspecified; F41.9 Anxiety disorder, unspecified; Z82.49 Family history of ischemic heart disease and other diseases of the circulatory system; Z99.2 Dependence on renal dialysis; Z79.899 Other long term (current) drug therapy
CPT/HCPCS: 36415; 71045; 74176; 76937; 80048; 83735; 84100; 93005; 93970; 99291; C1725; J0360; J2270; J2405; J3490; J7030; J7050

== ENCOUNTER 2018-12-30 14:26 | Inpatient (IN) | payer OTHER ==
[~2018-12-30] VITALS: Ht 172.7 cm; Wt 58.1 kg
[~2018-12-30 14:26] MED LIST changes: +NEPVIT PO
[2018-12-30] MEDS ORDERED: MORPHINE SULFATE 4 MG/ML CPJ (NOT FOR IM USE) IV STA (15:11)
[2018-12-30] MEDS ORDERED: ONDANSETRON HCL 4MG/2ML INJ IV STA (15:11)
[2018-12-30] MEDS ORDERED: HYDRALAZINE 20MG/ML VIAL IV ONE ×2 (15:15→18:45)
[2018-12-30] MEDS ORDERED: CLONIDINE 0.2MG TABLET PO ONE (17:15)
[2018-12-30 17:30] LABS: BASOPHILS % 1.3 % (0.0-2.0); EOSINOPHILS % 1.8 % (0.0-5.0); HEMATOCRIT. 46.8 % (42.0-52.0); HEMOGLOBIN. 14.9 g/dL (14.0-18.0); LYMPHOCYTES % 19.8 % (20.0-50.0); MEAN CORPUSCULAR HEMOGLOBIN 27.8 pg (28.0-32.0); MEAN CORPUSCULAR VOLUME 87.3 fL (80.0-94.0); MEAN PLATELET VOLUME 9.2 fl (7.4-10.4); MONOCYTES % 3.1 % (2.0-8.0); PLATELET 194 x1000/uL (130-400); RED BLOOD CELL COUNT 5.36 mill/uL (4.7-6.1); RED CELL DISTRIBUTION WIDTH 20.2 % (11.6-14.6)
[2018-12-30 17:32] LABS: CHLORIDE 105 mEq/L (98-107); PARTIAL THROMBOPLASTIN TIME 31.3 sec (23.4-31.0); PROTHROMBIN TIME 10.5 sec (9.6-11.0)
[2018-12-30] MEDS ORDERED: SODIUM BICARBONATE 8.4% 1 MEQ/ML 50ML SYR IV ONE (17:45)
[2018-12-30] MEDS ORDERED: DEXTROSE 50% WATER 50ML SYRINGE IV ONE (17:45)
[2018-12-30] MEDS ORDERED: ALBUTEROL (0.083%) 2.5MG/3ML NEB HHN ONE (17:45)
[2018-12-30] MEDS ORDERED: SODIUM POLYSTYRENE SULFONATE 15 G/60 ML BOT PO ONE (17:45)
[2018-12-30] MEDS ORDERED: INSULIN REGULAR (HUMULIN R) 300UNITS/3ML IV ONE (17:45)
[2018-12-30] MEDS ORDERED: ONDANSETRON HCL 4MG/2ML INJ IV ONE (18:15)
[2018-12-30] MEDS: CALCIUM GLUCONATE 100MG/ML 10ML VIAL IV ONE ×2 (18:15→19:03)
[2018-12-30] MEDS ORDERED: CALCIUM GLUCONATE 1000MG in DEXTROSE 5% WATER 50ML IV NR (18:17)
[2018-12-30] MEDS ORDERED: LABETALOL 5MG/ML SYR 20 MG/4 ML SYRINGE IV SCH (20:00)
[2018-12-30] MEDS ORDERED: ACETAMINOPHEN 325MG TABLET PO PRN (20:00)
[2018-12-30] MEDS ORDERED: ONDANSETRON HCL 4MG/2ML INJ IV PRN (20:00)
[2018-12-30] MEDS: CLONIDINE 0.1MG TABLET PO PRN (21:11)
[2018-12-30] MEDS ORDERED: FUROSEMIDE 100MG/10ML VIAL IVP NR (21:45)
[2018-12-30] MEDS ORDERED: LORAZEPAM 0.5MG TABLET PO PRN (22:32)
[2018-12-30] MEDS: MORPHINE SULFATE 2 MG/ML CPJ (NOT FOR IM USE) IV PRN (22:42)
[2018-12-30] MEDS ORDERED: HYDRALAZINE 20MG/ML VIAL IV PRN (23:00)
[2018-12-31] VITALS (13 sets, daily range): BP systolic 131–228; BP diastolic 75–142
[2018-12-31] MEDS ORDERED: NIFEDIPINE XL 90MG TAB PO SCH (02:00)
[2018-12-31] MEDS: MORPHINE SULFATE 2 MG/ML CPJ (NOT FOR IM USE) IV PRN (04:14)
[2018-12-31] MEDS: HYDRALAZINE 20MG/ML VIAL IV PRN ×3 (04:15→20:51)
[2018-12-31] MEDS ORDERED: HYDRALAZINE HCL 100MG TABLET PO SCH (06:00)
[2018-12-31 07:41] LABS: EOSINOPHILS % 0.5 % (0.0-5.0); HEMATOCRIT. 35.8 % (42.0-52.0); HEMOGLOBIN. 11.1 g/dL (14.0-18.0); LYMPHOCYTES % 14.7 % (20.0-50.0); MEAN CORPUSCULAR HEMOGLOBIN 27.9 pg (28.0-32.0); MEAN CORPUSCULAR VOLUME 89.5 fL (80.0-94.0); MEAN PLATELET VOLUME 9.3 fl (7.4-10.4); MONOCYTES % 6.6 % (2.0-8.0); NEUTROPHILS % 77.2 % (40.0-76.0); PLATELET 155 x1000/uL (130-400); RED CELL DISTRIBUTION WIDTH 20.2 % (11.6-14.6)
[2018-12-31 07:52] LABS: PHOSPHORUS 5.7 mg/dL (2.5-4.9)
[2018-12-31] MEDS ORDERED: LOSARTAN POTASSIUM 100 MG TABLET PO SCH (10:00)
[2018-12-31] MEDS: LABETALOL 5MG/ML SYR 20 MG/4 ML SYRINGE IV NR ×2 (10:30→18:23)
[2018-12-31] MEDS: CLONIDINE 0.1MG TABLET PO PRN (11:28)
[2018-12-31] MEDS ORDERED: CLONIDINE 0.2MG TABLET PO NR (13:15)
[2018-12-31] MEDS: CLONIDINE 0.1MG TABLET PO SCH ×2 (15:41→20:51)
[2018-12-31] MEDS: MINOXIDIL 2.5MG TABLET PO SCH ×2 (15:41→20:22)
[2018-12-31] MEDS ORDERED: NICARDIPINE 50 MG in SODIUM CHLORIDE 0.9% 230 ML IV PRN (17:45)
[2018-12-31] MEDS ORDERED: LABETALOL 5MG/ML SYR 20 MG/4 ML SYRINGE IV NR (17:45)
[2018-12-31] MEDS ORDERED: LOSA100T3 PO (19:25)
[2018-12-31] MEDS ORDERED: NIFE90TA34 PO (19:25)
[2018-12-31] MEDS ORDERED: METO25TA6 PO (19:25)
[2018-12-31] MEDS ORDERED: CLON0.1T14 PO (19:26)
[2018-12-31] MEDS ORDERED: METOPROLOL TARTRATE 25MG TABLET PO SCH (21:00)
== END 2018-12-31 21:30 | disposition home or self-care (01) | DRG 425 ==
LOC: ER 14:26 → 7WST 17:48 → ENRESERV 23:03 → CVICU 12-31 19:07
PROVIDERS: ADMIT Internal Medicine; ATTEND Internal Medicine
PROC: 5A1D70Z Performance of Urinary Filtration, Intermittent, Less than 6 Hours Per Day (ICD-10-PCS; principal; 2018-12-30)
DX: E87.5 Hyperkalemia (principal); J96.91 Respiratory failure, unspecified with hypoxia; J91.8 Pleural effusion in other conditions classified elsewhere; J81.1 Chronic pulmonary edema; I31.3 Pericardial effusion (noninflammatory); E87.2 Acidosis; R18.8 Other ascites; I12.0 Hypertensive chronic kidney disease with stage 5 chronic kidney disease or end stage renal disease; D64.9 Anemia, unspecified; B19.20 Unspecified viral hepatitis C without hepatic coma; F14.10 Cocaine abuse, uncomplicated; I16.0 Hypertensive urgency; N18.6 End stage renal disease; Z79.4 Long term (current) use of insulin; Z82.49 Family history of ischemic heart disease and other diseases of the circulatory system; Z99.2 Dependence on renal dialysis; Z79.899 Other long term (current) drug therapy
CPT/HCPCS: 36415; 71045; 74176; 80048; 83735; 83880; 84100; 84132; 84484; 93005; 94640; 99291; C1893; J0360; J0610; J1815; J1940; J2270; J2405; J3490; J7050; J7060; J7611

== ENCOUNTER 2019-01-21 09:54 | Inpatient (IN) | payer OTHER ==
[2019-01-21] VITALS (40 sets, daily range): BP systolic 142–222; BP diastolic 70–142
[~2019-01-21] VITALS: Ht 165.1 cm; Wt 49.9 kg
[~2019-01-21 09:54] MED LIST changes: +CLON0.1T14 PO; +LOSA100T3 PO; +METO25TA6 PO; +NIFE90TA34 PO
[2019-01-21] MEDS ORDERED: ONDANSETRON HCL 4MG/2ML INJ IV STA (10:07)
[2019-01-21] MEDS ORDERED: MORPHINE SULFATE 4 MG/ML CPJ (NOT FOR IM USE) IV STA (10:07)
[2019-01-21 10:41] LABS: BASOPHILS % 1.9 % (0.0-2.0); EOSINOPHILS % 2.2 % (0.0-5.0); HEMATOCRIT. 32.7 % (42.0-52.0); HEMOGLOBIN. 10.9 g/dL (14.0-18.0); LYMPHOCYTES % 17.1 % (20.0-50.0); MEAN CORPUSCULAR VOLUME 87.2 fL (80.0-94.0); MEAN PLATELET VOLUME 9.7 fl (7.4-10.4); MONOCYTES % 3.8 % (2.0-8.0); PLATELET 128 x1000/uL (130-400); RED BLOOD CELL COUNT 3.75 mill/uL (4.7-6.1); RED CELL DISTRIBUTION WIDTH 19.2 % (11.6-14.6)
[2019-01-21 10:46] LABS: CHLORIDE 100 mEq/L (98-107)
[2019-01-21 10:47] LABS: PROTHROMBIN TIME 10.3 sec (9.6-11.0)
[2019-01-21] MEDS ORDERED: HYDRALAZINE 20MG/ML VIAL IV ONE (12:00)
[2019-01-21] MEDS ORDERED: NICARDIPINE 50 MG in SODIUM CHLORIDE 0.9% 230 ML IV STA (12:18)
[2019-01-21] MEDS ORDERED: NICARDIPINE 40MG/200ML PREMIX 200 ML IV SCH (12:30)
[2019-01-21] MEDS ORDERED: IPRATROPIUM/ALBUTEROL 0.5-3(2.5)MG/3ML NEB HHN PRN (12:45)
[2019-01-21] MEDS ORDERED: ONDANSETRON HCL 4MG/2ML INJ IV PRN (12:45)
[2019-01-21] MEDS ORDERED: DOCUSATE SODIUM 100MG CAPSULE PO PRN (12:45)
[2019-01-21] MEDS ORDERED: ACETAMINOPHEN 325MG TABLET PO PRN (12:45)
[2019-01-21] MEDS ORDERED: CLONIDINE 0.1MG TABLET PO PRN (12:45)
[2019-01-21] MEDS ORDERED: HYDROCODONE/ACETAMINOPHEN 5/325MG TABLET PO PRN (12:45)
[2019-01-21] MEDS ORDERED: GABAPENTIN 100MG CAPSULE PO SCH (13:00)
[2019-01-21] MEDS ORDERED: FUROSEMIDE 100MG/10ML VIAL IVP ONE (13:00)
[2019-01-21] MEDS ORDERED: METHYLPREDNISOLONE SOD SUCC 125 MG/2 ML VIAL IV SCH (13:30)
[2019-01-21] MEDS ORDERED: LORAZEPAM 2MG/ML CPJ IV PRN (13:30)
[2019-01-21] MEDS ORDERED: HYDROMORPHONE HCL/PF 2MG/ML CPJ IV PRN (13:30)
[2019-01-21] MEDS ORDERED: SODIUM POLYSTYRENE SULFONATE 15 G/60 ML BOT PO SCH (13:31)
[2019-01-21] MEDS: SUCRALFATE 1G TABLET PO SCH ×3 (13:39→17:32)
[2019-01-21] MEDS: FOLIC ACID/VITAMIN B COMP W-C TABLET PO SCH ×3 (13:39→17:32)
[2019-01-21] MEDS ORDERED: NICARDIPINE 100 MG in SODIUM CHLORIDE 0.9% 60 ML IV PRN (13:45)
[2019-01-21 14:02] LABS: BG BASE EXCESS 0.6 mmol/L (-2.0-2.0); BG CARBOXYHEMOGLOBIN 1.9 % (0.5-1.5); BG DEOXYHEMOGLOBIN 8.1 % (0.0-5.0); BG FRACTION INSPIRED OXYGEN 35; BG HCO3 ACT 25.3 mmol/L (22.0-26.0); BG METHEMOGLOBIN 0.3 % (0.0-1.5); BG OXYGEN SATURATION 91.7 % (92.0-98.5); BG OXYHEMOGLOBIN 89.7 % (94.0-97.0); BG PCO2 40.6 mmHg (35.0-45.0); BG PH 7.412 (7.350-7.450); BG PO2 63.4 mmHg (75.0-100.0); BG SAMPLE SITE LEFT RADIAL; BG TOTAL HEMOGLOBIN 11.7 g/dL (12.0-18.0); BG VENT MODE MASK - VENTI
[2019-01-21] MEDS: IPRATROPIUM/ALBUTEROL 0.5-3(2.5)MG/3ML NEB HHN SCH ×2 (15:48→21:10)
[2019-01-21 17:43] LABS: *AMPHETAMINES SCREEN URINE NEGATIVE (NEGATIVE); *BARBITURATES SCREEN URINE NEGATIVE (NEGATIVE); *BENZODIAZEPINES SCREEN URINE NEGATIVE (NEGATIVE); *COCAINE SCREEN URINE NEGATIVE (NEGATIVE); CANNABINOID URINE SCREEN NEGATIVE (NEGATIVE); METHADONE URINE SCREEN NEGATIVE (NEGATIVE); OPIATES URINE SCREEN NEGATIVE (NEGATIVE); PHENCYCLIDINE URINE SCREEN NEGATIVE (NEGATIVE)
[2019-01-21] MEDS ORDERED: CLONIDINE 0.2MG TABLET PO PRN (18:45)
[2019-01-21] MEDS: NIFEDIPINE XL 90MG TAB PO SCH (18:56)
[2019-01-21 19:02] LABS: BG BASE EXCESS -1.9 mmol/L (-2.0-2.0); BG CARBOXYHEMOGLOBIN 1.5 % (0.5-1.5); BG DEOXYHEMOGLOBIN 5.7 % (0.0-5.0); BG FRACTION INSPIRED OXYGEN 21; BG METHEMOGLOBIN 0.1 % (0.0-1.5); BG OXYGEN SATURATION 94.2 % (92.0-98.5); BG OXYHEMOGLOBIN 92.7 % (94.0-97.0); BG PH 7.378 (7.350-7.450); BG PO2 76.6 mmHg (75.0-100.0); BG SAMPLE SITE RIGHT RADIAL; BG TOTAL HEMOGLOBIN 12.5 g/dL (12.0-18.0); BG VENT MODE ROOM AIR
[2019-01-21] MEDS: METOPROLOL TARTRATE 100MG TABLET PO SCH (20:39)
[2019-01-21] MEDS: HEPARIN 5000 UNITS/ML VIAL SUBCUT SCH (20:40)
[2019-01-21] MEDS ORDERED: TAMSULOSIN HCL 0.4MG SR CAPSULE PO SCH (21:00)
[2019-01-22] VITALS (34 sets, daily range): BP systolic 103–172; BP diastolic 66–104
[2019-01-22] MEDS: IPRATROPIUM/ALBUTEROL 0.5-3(2.5)MG/3ML NEB HHN SCH ×5 (01:00→16:00)
[2019-01-22 05:09] LABS: BASOPHILS % 0.1 % (0.0-2.0); EOSINOPHILS % 0.1 % (0.0-5.0); HEMATOCRIT. 34.6 % (42.0-52.0); HEMOGLOBIN. 11.1 g/dL (14.0-18.0); LYMPHOCYTES % 12.9 % (20.0-50.0); MEAN CORPUSCULAR HEMOGLOBIN 28.1 pg (28.0-32.0); MEAN CORPUSCULAR VOLUME 87.4 fL (80.0-94.0); MEAN PLATELET VOLUME 9.7 fl (7.4-10.4); MONOCYTES % 4.1 % (2.0-8.0); NEUTROPHILS % 82.8 % (40.0-76.0); PLATELET 131 x1000/uL (130-400); RED BLOOD CELL COUNT 3.96 mill/uL (4.7-6.1); RED CELL DISTRIBUTION WIDTH 19.3 % (11.6-14.6)
[2019-01-22 05:30] LABS: PHOSPHORUS 5.7 mg/dL (2.5-4.9)
[2019-01-22] MEDS: NIFEDIPINE XL 90MG TAB PO SCH (08:29)
[2019-01-22] MEDS: METOPROLOL TARTRATE 100MG TABLET PO SCH (08:29)
[2019-01-22] MEDS ORDERED: LOSARTAN POTASSIUM 100 MG TABLET PO SCH (09:00)
[2019-01-22] MEDS: HEPARIN 5000 UNITS/ML VIAL SUBCUT SCH (09:27)
[2019-01-22] MEDS: SUCRALFATE 1G TABLET PO SCH (09:27)
[2019-01-22] MEDS: FOLIC ACID/VITAMIN B COMP W-C TABLET PO SCH (09:27)
== END 2019-01-22 17:35 | disposition left against medical advice (07) | DRG 133 ==
LOC: ER 09:54 → CVICU 11:52 → EDBEDREQSVC 12:20 → ENRESERV 12:22 → 8WST 01-22 11:24
PROVIDERS: ADMIT Internal Medicine; ATTEND Internal Medicine
PROC: 02HV33Z Insertion of Infusion Device into Superior Vena Cava, Percutaneous Approach (ICD-10-PCS; principal; 2019-01-21)
PROC: B548ZZA Ultrasonography of Superior Vena Cava, Guidance (ICD-10-PCS; 2019-01-21)
PROC: 5A1D70Z Performance of Urinary Filtration, Intermittent, Less than 6 Hours Per Day (ICD-10-PCS; 2019-01-21)
PROC: 5A09357 Assistance with Respiratory Ventilation, Less than 24 Consecutive Hours, Continuous Positive Airway Pressure (ICD-10-PCS; 2019-01-21)
PROC: 5A09357 Assistance with Respiratory Ventilation, Less than 24 Consecutive Hours, Continuous Positive Airway Pressure (ICD-10-PCS; 2019-01-22)
DX: J96.01 Acute respiratory failure with hypoxia (principal); R57.0 Cardiogenic shock; G92 Toxic encephalopathy; I13.2 Hypertensive heart and chronic kidney disease with heart failure and with stage 5 chronic kidney disease, or end stage renal disease; E72.20 Disorder of urea cycle metabolism, unspecified; I95.9 Hypotension, unspecified; D69.6 Thrombocytopenia, unspecified; E11.22 Type 2 diabetes mellitus with diabetic chronic kidney disease; E87.2 Acidosis; N18.6 End stage renal disease; I16.1 Hypertensive emergency; E87.5 Hyperkalemia; B19.20 Unspecified viral hepatitis C without hepatic coma; D63.8 Anemia in other chronic diseases classified elsewhere; D72.821 Monocytosis (symptomatic); F10.10 Alcohol abuse, uncomplicated; F14.10 Cocaine abuse, uncomplicated; F17.210 Nicotine dependence, cigarettes, uncomplicated; F32.9 Major depressive disorder, single episode, unspecified; F41.9 Anxiety disorder, unspecified; G89.29 Other chronic pain; I44.60 Unspecified fascicular block; I08.1 Rheumatic disorders of both mitral and tricuspid valves; R74.0 Nonspecific elevation of levels of transaminase and lactic acid dehydrogenase [LDH]; R16.0 Hepatomegaly, not elsewhere classified; I48.91 Unspecified atrial fibrillation; I50.43 Acute on chronic combined systolic (congestive) and diastolic (congestive) heart failure; K80.20 Calculus of gallbladder without cholecystitis without obstruction; N40.0 Benign prostatic hyperplasia without lower urinary tract symptoms; Z53.29 Procedure and treatment not carried out because of patient's decision for other reasons; Z59.0 Homelessness; Z78.1 Physical restraint status; Z79.4 Long term (current) use of insulin; Z82.49 Family history of ischemic heart disease and other diseases of the circulatory system; Z83.3 Family history of diabetes mellitus; Z86.73 Personal history of transient ischemic attack (TIA), and cerebral infarction without residual deficits; Z91.15 Patient's noncompliance with renal dialysis; Z91.19 Patient's noncompliance with other medical treatment and regimen; Z99.2 Dependence on renal dialysis; Z79.899 Other long term (current) drug therapy; Z89.422 Acquired absence of other left toe(s)
CPT/HCPCS: 36415; 36573; 36600; 71045; 80048; 80305; 82375; 82805; 82962; 83735; 83880; 84100; 84484; 93005; 94640; 94660; 99291; C1725; J0360; J1170; J1644; J1940; J2060; J2270; J2405; J2930; J3490; J7050; J7620

== ENCOUNTER 2019-05-12 16:04 | Inpatient (IN) | payer OTHER ==
[~2019-05-12] VITALS: Ht 167.6 cm; Wt 52.2 kg
[~2019-05-12 16:04] MED LIST changes: +LIDOCAINE HCL/PF 1% 2ML VIAL ONE; -NIFE90TA34 PO; +NIFE90TA60 PO
[2019-05-12] MEDS ORDERED: NITROGLYCERIN 0.4MG TABLET SL SL ONE (16:15)
[2019-05-12] MEDS ORDERED: ASPIRIN 325MG TABLET PO ONE (16:45)
[2019-05-12] MEDS ORDERED: HYDRALAZINE 20MG/ML VIAL IV ONE (17:00)
[2019-05-12] MEDS ORDERED: MORPHINE SULFATE 4 MG/ML CPJ (NOT FOR IM USE) IV ONE ×2 (17:00→20:00)
[2019-05-12 17:29] LABS: BASOPHILS % 1.6 % (0.0-2.0); EOSINOPHILS % 1.8 % (0.0-5.0); HEMATOCRIT. 30.1 % (42.0-52.0); LYMPHOCYTES % 21.7 % (20.0-50.0); MEAN CORPUSCULAR HEMOGLOBIN 30.6 pg (28.0-32.0); MEAN CORPUSCULAR VOLUME 92.5 fL (80.0-94.0); MEAN PLATELET VOLUME 8.8 fl (7.4-10.4); MONOCYTES % 11.1 % (2.0-8.0); NEUTROPHILS % 63.8 % (40.0-76.0); PLATELET 214 x1000/uL (130-400); RED BLOOD CELL COUNT 3.25 mill/uL (4.7-6.1); RED CELL DISTRIBUTION WIDTH 17.3 % (11.6-14.6)
[2019-05-12 17:40] LABS: CHLORIDE 98 mEq/L (98-107)
[2019-05-12] MEDS ORDERED: SODIUM POLYSTYRENE SULFONATE 15 G/60 ML BOT PO ONE (18:30)
[2019-05-12] MEDS ORDERED: NITROGLYCERIN 50MG PREMIX 250 ML IV ONE (18:30)
[2019-05-12] MEDS ORDERED: DEXTROSE 50% WATER 50ML SYRINGE IV ONE (18:30)
[2019-05-12] MEDS ORDERED: CALCIUM CHLORIDE 1GM/10ML SYR IV ONE (18:30)
[2019-05-12] MEDS ORDERED: INSULIN REGULAR (HUMULIN R) 300UNITS/3ML IV ONE (18:30)
[2019-05-12] MEDS ORDERED: SODIUM BICARBONATE 8.4% 1 MEQ/ML 50ML SYR IV ONE (18:30)
[2019-05-12] MEDS ORDERED: IPRATROPIUM/ALBUTEROL 0.5-3(2.5)MG/3ML NEB HHN PRN (20:15)
[2019-05-12] MEDS ORDERED: ACETAMINOPHEN 325MG TABLET PO PRN (20:15)
[2019-05-13] VITALS (85 sets, daily range): BP systolic 84–264; BP diastolic 42–174
[2019-05-13] MEDS ORDERED: NITROGLYCERIN 50MG PREMIX 250 ML IV PRN (02:00)
[2019-05-13 05:31] LABS: BASOPHILS % 1.1 % (0.0-2.0); EOSINOPHILS % 0.6 % (0.0-5.0); HEMOGLOBIN. 9.7 g/dL (14.0-18.0); LYMPHOCYTES % 18.3 % (20.0-50.0); MEAN CORPUSCULAR VOLUME 92.8 fL (80.0-94.0); MEAN PLATELET VOLUME 9.1 fl (7.4-10.4); MONOCYTES % 8.4 % (2.0-8.0); NEUTROPHILS % 71.6 % (40.0-76.0); PLATELET 231 x1000/uL (130-400); RED BLOOD CELL COUNT 3.23 mill/uL (4.7-6.1); RED CELL DISTRIBUTION WIDTH 16.8 % (11.6-14.6)
[2019-05-13] MEDS: NICARDIPINE IV PRN ×3 (05:36→20:58)
[2019-05-13] MEDS: SODIUM CHLORIDE 0.9% IV PRN ×3 (05:36→20:58)
[2019-05-13] MEDS: HEPARIN 5000 UNITS/ML VIAL SUBCUT SCH ×2 (08:16→21:00)
[2019-05-13] MEDS ORDERED: HEPARIN SODIUM 1,000 UNIT/1ML VIAL IV NR (09:00)
[2019-05-13] MEDS: FOLIC ACID/VITAMIN B COMP W-C TABLET PO SCH (10:00)
[2019-05-13] MEDS: METOPROLOL TARTRATE 100MG TABLET PO SCH ×2 (10:00→20:59)
[2019-05-13] MEDS: NIFEDIPINE XL 60MG TAB PO SCH ×2 (10:00→21:00)
[2019-05-13] MEDS ORDERED: LEVETIRACETAM 500 MG in SODIUM CHLORIDE 0.9% 100 ML IV SCH (11:15)
[2019-05-13] MEDS: IPRATROPIUM/ALBUTEROL 0.5-3(2.5)MG/3ML NEB HHN SCH ×4 (12:42→23:41)
[2019-05-13] MEDS: BUDESONIDE 0.5MG/2ML NEB HHN SCH ×2 (12:42→19:43)
[2019-05-13] MEDS: LEVETIRACETAM 500MG PREMIX 100 ML IV SCH ×2 (13:07→21:01)
[2019-05-13 13:09] LABS: BG BASE EXCESS 2.5 mmol/L (-2.0-2.0); BG CARBOXYHEMOGLOBIN 0.5 % (0.5-1.5); BG DEOXYHEMOGLOBIN 4.6 % (0.0-5.0); BG FRACTION INSPIRED OXYGEN 40; BG HCO3 ACT 27.8 mmol/L (22.0-26.0); BG OXYGEN SATURATION 95.4 % (92.0-98.5); BG OXYHEMOGLOBIN 94.9 % (94.0-97.0); BG PCO2 45.6 mmHg (35.0-45.0); BG PH 7.403 (7.350-7.450); BG PO2 86.5 mmHg (75.0-100.0); BG SAMPLE SITE RIGHT RADIAL; BG TOTAL HEMOGLOBIN 12.5 g/dL (12.0-18.0); BG VENT MODE NASAL CANNULA
[2019-05-14] VITALS (73 sets, daily range): BP systolic 123–166; BP diastolic 61–99
[2019-05-14] MEDS: NICARDIPINE IV PRN (02:44)
[2019-05-14] MEDS: SODIUM CHLORIDE 0.9% IV PRN (02:44)
[2019-05-14] MEDS: IPRATROPIUM/ALBUTEROL 0.5-3(2.5)MG/3ML NEB HHN SCH ×5 (04:09→20:34)
[2019-05-14 05:43] LABS: HEMATOCRIT. 30.1 % (42.0-52.0); HEMOGLOBIN. 9.8 g/dL (14.0-18.0); MEAN CORPUSCULAR HEMOGLOBIN 29.9 pg (28.0-32.0); MEAN CORPUSCULAR VOLUME 92.4 fL (80.0-94.0); MEAN PLATELET VOLUME 9.1 fl (7.4-10.4); PLATELET 205 x1000/uL (130-400); RED BLOOD CELL COUNT 3.26 mill/uL (4.7-6.1); RED CELL DISTRIBUTION WIDTH 16.9 % (11.6-14.6)
[2019-05-14 07:42] LABS: PLATELET ESTIMATE NORMAL
[2019-05-14] MEDS: NIFEDIPINE XL 60MG TAB PO SCH ×2 (08:14→20:43)
[2019-05-14] MEDS: FOLIC ACID/VITAMIN B COMP W-C TABLET PO SCH (08:14)
[2019-05-14] MEDS: METOPROLOL TARTRATE 100MG TABLET PO SCH ×2 (08:14→20:43)
[2019-05-14] MEDS: HEPARIN 5000 UNITS/ML VIAL SUBCUT SCH ×2 (08:15→20:42)
[2019-05-14] MEDS: LEVETIRACETAM 500MG PREMIX 100 ML IV SCH ×2 (08:15→20:42)
[2019-05-14] MEDS: BUDESONIDE 0.5MG/2ML NEB HHN SCH ×2 (08:34→20:34)
[2019-05-14] MEDS: SEVELAMER CARBONATE 800 MG TABLET PO SCH ×2 (13:41→17:45)
[2019-05-14] MEDS: CLONIDINE 0.2MG TABLET PO SCH ×2 (13:42→22:00)
[2019-05-14] MEDS ORDERED: CLONIDINE 0.1MG TABLET PO SCH (14:00)
[2019-05-14] MEDS: MORPHINE SULFATE 2 MG/ML CPJ (NOT FOR IM USE) IV PRN (18:01)
[2019-05-14] MEDS: LORAZEPAM 2MG/ML CPJ IV PRN (19:54)
[2019-05-15] VITALS (85 sets, daily range): BP systolic 110–178; BP diastolic 69–155
[2019-05-15] MEDS: IPRATROPIUM/ALBUTEROL 0.5-3(2.5)MG/3ML NEB HHN SCH ×5 (00:26→19:43)
[2019-05-15] MEDS: CLONIDINE 0.2MG TABLET PO SCH ×3 (05:30→21:14)
[2019-05-15 05:56] LABS: CHLORIDE 99 mEq/L (98-107)
[2019-05-15 06:00] LABS: BASOPHILS % 0.5 % (0.0-2.0); LYMPHOCYTES % 12.8 % (20.0-50.0); MEAN CORPUSCULAR HEMOGLOBIN 30.5 pg (28.0-32.0); MEAN CORPUSCULAR VOLUME 91.5 fL (80.0-94.0); MEAN PLATELET VOLUME 9.4 fl (7.4-10.4); MONOCYTES % 8.2 % (2.0-8.0); NEUTROPHILS % 77.5 % (40.0-76.0); PLATELET 169 x1000/uL (130-400); RED BLOOD CELL COUNT 2.68 mill/uL (4.7-6.1); RED CELL DISTRIBUTION WIDTH 16.2 % (11.6-14.6)
[2019-05-15 06:23] LABS: PHOSPHORUS 8.9 mg/dL (2.5-4.9)
[2019-05-15] MEDS ORDERED: DIPHENHYDRAMINE 50MG/ML VIAL IV PRN (07:45)
[2019-05-15] MEDS: LORAZEPAM 2MG/ML CPJ IV PRN ×2 (07:48→16:42)
[2019-05-15] MEDS: ONDANSETRON HCL 4MG/2ML INJ IV PRN ×2 (07:48→16:42)
[2019-05-15] MEDS: MORPHINE SULFATE 2 MG/ML CPJ (NOT FOR IM USE) IV PRN (07:48)
[2019-05-15 08:03] LABS: HEMATOCRIT. 24.5 % (42.0-52.0); HEMOGLOBIN. 8.2 g/dL (14.0-18.0)
[2019-05-15] MEDS: BUDESONIDE 0.5MG/2ML NEB HHN SCH ×2 (08:03→19:43)
[2019-05-15] MEDS: HEPARIN 5000 UNITS/ML VIAL SUBCUT SCH ×2 (08:04→21:13)
[2019-05-15] MEDS: SEVELAMER CARBONATE 800 MG TABLET PO SCH ×3 (08:04→16:33)
[2019-05-15] MEDS: FOLIC ACID/VITAMIN B COMP W-C TABLET PO SCH (08:05)
[2019-05-15] MEDS: METOPROLOL TARTRATE 100MG TABLET PO SCH ×2 (08:05→21:14)
[2019-05-15] MEDS: NIFEDIPINE XL 60MG TAB PO SCH ×2 (08:05→21:13)
[2019-05-15] MEDS: LEVETIRACETAM 500MG PREMIX 100 ML IV SCH ×2 (08:06→21:29)
[2019-05-15] MEDS ORDERED: HEPARIN SODIUM 1,000 UNIT/1ML VIAL IV NR (08:30)
[2019-05-15] MEDS: NICARDIPINE IV PRN (13:53)
[2019-05-15] MEDS: SODIUM CHLORIDE 0.9% IV PRN (13:53)
[2019-05-15] MEDS ORDERED: EPOETIN ALFA 4000UNITS/ML VIAL SUBCUT SCH (21:00)
[2019-05-16] VITALS (63 sets, daily range): BP systolic 111–169; BP diastolic 74–103
[2019-05-16] MEDS: SODIUM CHLORIDE 0.9% IV PRN (01:38)
[2019-05-16] MEDS: NICARDIPINE IV PRN (01:38)
[2019-05-16] MEDS: IPRATROPIUM/ALBUTEROL 0.5-3(2.5)MG/3ML NEB HHN SCH ×3 (01:55→14:00)
[2019-05-16 05:44] LABS: BASOPHILS % 0.8 % (0.0-2.0); EOSINOPHILS % 0.9 % (0.0-5.0); HEMATOCRIT. 29.2 % (42.0-52.0); HEMOGLOBIN. 9.3 g/dL (14.0-18.0); LYMPHOCYTES % 15.2 % (20.0-50.0); MEAN CORPUSCULAR HEMOGLOBIN 29.4 pg (28.0-32.0); MEAN PLATELET VOLUME 9.2 fl (7.4-10.4); MONOCYTES % 9.4 % (2.0-8.0); NEUTROPHILS % 73.7 % (40.0-76.0); PLATELET 183 x1000/uL (130-400); RED BLOOD CELL COUNT 3.18 mill/uL (4.7-6.1); RED CELL DISTRIBUTION WIDTH 16.6 % (11.6-14.6)
[2019-05-16] MEDS: SEVELAMER CARBONATE 800 MG TABLET PO SCH ×3 (06:55→17:00)
[2019-05-16] MEDS: CLONIDINE 0.2MG TABLET PO SCH ×3 (06:56→22:56)
[2019-05-16] MEDS: HEPARIN 5000 UNITS/ML VIAL SUBCUT SCH ×2 (09:15→21:41)
[2019-05-16] MEDS: FOLIC ACID/VITAMIN B COMP W-C TABLET PO SCH (09:15)
[2019-05-16] MEDS: NIFEDIPINE XL 60MG TAB PO SCH ×2 (09:16→21:46)
[2019-05-16] MEDS: LEVETIRACETAM 500MG PREMIX 100 ML IV SCH ×2 (09:16→21:41)
[2019-05-16] MEDS: METOPROLOL TARTRATE 100MG TABLET PO SCH ×2 (09:16→21:42)
[2019-05-16] MEDS: MINOXIDIL 2.5MG TABLET PO SCH ×2 (09:16→21:42)
[2019-05-16] MEDS ORDERED: HYDRALAZINE 20MG/ML VIAL IV PRN (13:45)
[2019-05-16] MEDS: MORPHINE SULFATE 2 MG/ML CPJ (NOT FOR IM USE) IV PRN (14:19)
[2019-05-16] MEDS ORDERED: LORAZEPAM 2MG/ML CPJ IV PRN (15:45)
[2019-05-17 00:15] VITALS: BP 126/78
[2019-05-17] MEDS: IPRATROPIUM/ALBUTEROL 0.5-3(2.5)MG/3ML NEB HHN SCH ×3 (02:50→14:29)
[2019-05-17 04:00] VITALS: BP 138/92
[2019-05-17] MEDS: CLONIDINE 0.2MG TABLET PO SCH ×2 (06:00→15:52)
[2019-05-17 06:59] LABS: BASOPHILS % 0.3 % (0.0-2.0); EOSINOPHILS % 1.1 % (0.0-5.0); HEMATOCRIT. 27.7 % (42.0-52.0); HEMOGLOBIN. 9.2 g/dL (14.0-18.0); LYMPHOCYTES % 18.2 % (20.0-50.0); MEAN CORPUSCULAR HEMOGLOBIN 30.4 pg (28.0-32.0); MEAN CORPUSCULAR VOLUME 91.8 fL (80.0-94.0); MEAN PLATELET VOLUME 9.5 fl (7.4-10.4); MONOCYTES % 10.1 % (2.0-8.0); NEUTROPHILS % 70.3 % (40.0-76.0); PLATELET 178 x1000/uL (130-400); RED BLOOD CELL COUNT 3.02 mill/uL (4.7-6.1); RED CELL DISTRIBUTION WIDTH 16.5 % (11.6-14.6)
[2019-05-17 07:00] LABS: PHOSPHORUS 7.4 mg/dL (2.5-4.9)
[2019-05-17] MEDS: BUDESONIDE 0.5MG/2ML NEB HHN SCH (08:23)
[2019-05-17 08:24] VITALS: BP 166/98
[2019-05-17] MEDS: NIFEDIPINE XL 60MG TAB PO SCH ×2 (09:00→10:53)
[2019-05-17] MEDS: MINOXIDIL 2.5MG TABLET PO SCH (09:00)
[2019-05-17] MEDS: METOPROLOL TARTRATE 100MG TABLET PO SCH ×2 (09:00→10:54)
[2019-05-17] MEDS: LEVETIRACETAM 500MG PREMIX 100 ML IV SCH (09:25)
[2019-05-17] MEDS: FOLIC ACID/VITAMIN B COMP W-C TABLET PO SCH (10:00)
[2019-05-17] MEDS: HEPARIN 5000 UNITS/ML VIAL SUBCUT SCH (10:00)
[2019-05-17] MEDS: SEVELAMER CARBONATE 800 MG TABLET PO SCH ×2 (10:00→12:50)
[2019-05-17 11:58] VITALS: BP 169/104
[2019-05-17] MEDS ORDERED: HEPARIN SODIUM 1,000 UNIT/1ML VIAL IV NR (12:00)
[2019-05-17] MEDS ORDERED: CLON0.2T12 PO (14:25)
[2019-05-17] MEDS ORDERED: MINO2.5T19 PO (14:25)
[2019-05-17] MEDS ORDERED: KEPP500 MT (14:25)
[2019-05-17 15:18] VITALS: BP 144/88
[2019-05-17 16:09] VITALS: BP 141/88
[2019-05-21 15:10] LABS: 7-AMINOCLONAZEPAM CONFIRM Negative (.); ALPRAZOLAM CONFIRM Negative (.); CHLORDIAZEPOXIDE CONFIRM Negative (.); CLONAZEPAM CONFIRM Negative (.); DESMETHYLCHLORDIAZEPOXIDE Negative (.); DIAZEPAM CONFIRM Negative (.); FLURAZEPAM CONFIRM Negative (.); LORAZEPAM CONFIRM 18.8 ng/mL (.); MIDAZOLAM CONFIRM Negative (.); OXAZEPAM CONFIRM Negative (.); TEMAZEPAM CONFIRM Negative (.); TRIAZOLAM CONFIRM Negative (.)
[2019-05-30 09:06] LABS: BARBITURATE SCREEN Negative ug/mL (Cutoff:0.1); BENZODIAZEPINE SCREEN ++POSITIVE++ ng/mL (Cutoff:20); OPIATES SCREEN Negative ng/mL (Cutoff:5); PHENCYCLIDINE SCREEN Negative ng/mL (Cutoff:8)
== END 2019-05-17 16:50 | disposition home or self-care (01) | DRG 133 ==
LOC: ER 16:04 → MICUSO 19:16 → EDBEDREQTM 19:22 → EDBEDREQSVC 19:22 → EDBEDREQ 19:22 → CANRESERV 23:35 → ENRESERV 23:35 → 6WST 05-16 23:34
PROVIDERS: ADMIT Internal Medicine; ATTEND Internal Medicine
PROC: 5A09357 Assistance with Respiratory Ventilation, Less than 24 Consecutive Hours, Continuous Positive Airway Pressure (ICD-10-PCS; principal; 2019-05-12)
PROC: 5A09357 Assistance with Respiratory Ventilation, Less than 24 Consecutive Hours, Continuous Positive Airway Pressure (ICD-10-PCS; 2019-05-16)
PROC: 5A1D70Z Performance of Urinary Filtration, Intermittent, Less than 6 Hours Per Day (ICD-10-PCS; 2019-05-17)
DX: J96.00 Acute respiratory failure, unspecified whether with hypoxia or hypercapnia (principal); I13.2 Hypertensive heart and chronic kidney disease with heart failure and with stage 5 chronic kidney disease, or end stage renal disease; E44.1 Mild protein-calorie malnutrition; J44.9 Chronic obstructive pulmonary disease, unspecified; N18.6 End stage renal disease; E83.39 Other disorders of phosphorus metabolism; E87.5 Hyperkalemia; I50.33 Acute on chronic diastolic (congestive) heart failure; I16.0 Hypertensive urgency; F41.9 Anxiety disorder, unspecified; D63.8 Anemia in other chronic diseases classified elsewhere; B19.20 Unspecified viral hepatitis C without hepatic coma; F32.9 Major depressive disorder, single episode, unspecified; E78.5 Hyperlipidemia, unspecified; F17.210 Nicotine dependence, cigarettes, uncomplicated; G40.409 Other generalized epilepsy and epileptic syndromes, not intractable, without status epilepticus; G89.29 Other chronic pain; I16.1 Hypertensive emergency; K21.9 Gastro-esophageal reflux disease without esophagitis; N25.81 Secondary hyperparathyroidism of renal origin; F14.10 Cocaine abuse, uncomplicated; N40.0 Benign prostatic hyperplasia without lower urinary tract symptoms; F19.11 Other psychoactive substance abuse, in remission; Z79.899 Other long term (current) drug therapy; Z82.49 Family history of ischemic heart disease and other diseases of the circulatory system; Z83.3 Family history of diabetes mellitus; Z86.73 Personal history of transient ischemic attack (TIA), and cerebral infarction without residual deficits; Z87.11 Personal history of peptic ulcer disease; Z91.14 Patient's other noncompliance with medication regimen; Z99.2 Dependence on renal dialysis; Z91.19 Patient's noncompliance with other medical treatment and regimen; Z91.15 Patient's noncompliance with renal dialysis; Z68.1 Body mass index [BMI] 19.9 or less, adult; Z89.422 Acquired absence of other left toe(s)
CPT/HCPCS: 36415; 36600; 70551; 71045; 80048; 80053; 80307; 80320; 82375; 82805; 82962; 83880; 84100; 84132; 84484; 85025; 93005; 93306; 93970; 94640; 94660; 99285; J0360; J0885; J1200; J1644; J1815; J1953; J2060; J2270; J2405; J3490; J7040; J7626; G0480

== ENCOUNTER 2019-05-17 22:12 | Emergency (ER) | payer OTHER ==
[~2019-05-17] VITALS: Ht 170.2 cm; Wt 96.0 kg
[~2019-05-17 22:12] MED LIST changes: +CLON0.2T12 PO; +KEPP500 MT; -LIDOCAINE HCL/PF 1% 2ML VIAL ONE; +MINO2.5T19 PO
[2019-05-17] MEDS ORDERED: NITROGLYCERIN 0.4MG TABLET SL SL PRN (22:45)
[2019-05-17] MEDS ORDERED: ACETAMINOPHEN 500MG TABLET PO ONE (23:00)
[2019-05-17 23:14] LABS: BASOPHILS % 0.6 % (0.0-2.0); EOSINOPHILS % 0.8 % (0.0-5.0); HEMATOCRIT. 28.6 % (42.0-52.0); HEMOGLOBIN. 9.3 g/dL (14.0-18.0); MEAN CORPUSCULAR VOLUME 91.8 fL (80.0-94.0); MEAN PLATELET VOLUME 8.7 fl (7.4-10.4); MONOCYTES % 8.1 % (2.0-8.0); NEUTROPHILS % 73.5 % (40.0-76.0); PLATELET 204 x1000/uL (130-400); RED BLOOD CELL COUNT 3.11 mill/uL (4.7-6.1); RED CELL DISTRIBUTION WIDTH 16.4 % (11.6-14.6)
[2019-05-17 23:32] LABS: CHLORIDE 103 mEq/L (98-107)
[2019-05-17 23:36] LABS: ETHANOL BLOOD < 10 mg/dL
[2019-05-18] MEDS ORDERED: ASPIRIN 81MG TABLET PO ONE (00:15)
[2019-05-18] MEDS ORDERED: CLONIDINE 0.3MG TABLET PO ONE (06:00)
[2019-05-18] MEDS ORDERED: METOPROLOL TARTRATE 25MG TABLET PO ONE (06:00)
[2019-05-18 06:21] VITALS: BP 206/127
== END 2019-05-18 06:46 | disposition left against medical advice (07) ==
LOC: ER 22:12
DX: R07.9 Chest pain, unspecified (principal); E11.22 Type 2 diabetes mellitus with diabetic chronic kidney disease; I12.0 Hypertensive chronic kidney disease with stage 5 chronic kidney disease or end stage renal disease; N18.6 End stage renal disease; R79.89 Other specified abnormal findings of blood chemistry; F12.10 Cannabis abuse, uncomplicated; Z79.899 Other long term (current) drug therapy; Z98.890 Other specified postprocedural states
CPT/HCPCS: 36415; 71045; 80053; 80320; 83880; 84484; 85025; 93005; 99285; Z7610; G0480

== ENCOUNTER 2019-06-12 01:01 | Inpatient (IN) | payer OTHER ==
[2019-06-12] VITALS (57 sets, daily range): BP systolic 84–176; BP diastolic 63–118
[~2019-06-12] VITALS: Ht 167.6 cm; Wt 57.6 kg
[~2019-06-12 01:01] MED LIST changes: -CLON0.1T14 PO; -METO100T16 PO; -NIFE90TA60 PO
[2019-06-12] MEDS ORDERED: HYDRALAZINE 20MG/ML VIAL IV ONE ×2 (01:15→02:00)
[2019-06-12] MEDS ORDERED: PROPOFOL 10MG/ML 100ML 100 ML IV SCH (01:15)
[2019-06-12 02:20] LABS: CHLORIDE 99 mEq/L (98-107)
[2019-06-12 02:21] LABS: BG BASE EXCESS -12.3 mmol/L (-2.0-2.0); BG CARBOXYHEMOGLOBIN 2.3 % (0.5-1.5); BG DEOXYHEMOGLOBIN 1.5 % (0.0-5.0); BG FRACTION INSPIRED OXYGEN 100; BG HCO3 ACT 18.9 mmol/L (22.0-26.0); BG METHEMOGLOBIN 0.3 % (0.0-1.5); BG OXYGEN SATURATION 98.5 % (92.0-98.5); BG OXYHEMOGLOBIN 95.9 % (94.0-97.0); BG PCO2 74.7 mmHg (35.0-45.0); BG PH 7.022 (7.350-7.450); BG PO2 186.1 mmHg (75.0-100.0); BG SAMPLE SITE LEFT RADIAL; BG TIDAL VOLUME(mL) 500 mL; BG TOTAL HEMOGLOBIN 10.5 g/dL (12.0-18.0); BG VENT MODE VENT - A/C; BG VENT RATE 14 set
[2019-06-12 02:24] LABS: ETHANOL BLOOD < 10 mg/dL
[2019-06-12 02:37] LABS: BASOPHILS % 0.9 % (0.0-2.0); EOSINOPHILS % 3.6 % (0.0-5.0); HEMATOCRIT. 26.2 % (42.0-52.0); HEMOGLOBIN. 8.4 g/dL (14.0-18.0); LYMPHOCYTES % 35.5 % (20.0-50.0); MEAN CORPUSCULAR HEMOGLOBIN 29.6 pg (28.0-32.0); MEAN PLATELET VOLUME 8.3 fl (7.4-10.4); MONOCYTES % 3.3 % (2.0-8.0); NEUTROPHILS % 56.7 % (40.0-76.0); PLATELET 360 x1000/uL (130-400); RED BLOOD CELL COUNT 2.85 mill/uL (4.7-6.1); RED CELL DISTRIBUTION WIDTH 16.9 % (11.6-14.6)
[2019-06-12 02:41] LABS: PROTHROMBIN TIME 10.8 sec (9.6-11.0)
[2019-06-12] MEDS ORDERED: MIDAZOLAM HCL 50 MG in DEXTROSE 5% WATER 40 ML IV ONE (03:00)
[2019-06-12] MEDS ORDERED: CALCIUM CHLORIDE 1GM/10ML SYR IV ONE (03:00)
[2019-06-12] MEDS ORDERED: DEXTROSE 50% WATER 50ML SYRINGE IV ONE (03:00)
[2019-06-12] MEDS ORDERED: INSULIN REGULAR (HUMULIN R) 300UNITS/3ML IV ONE (03:00)
[2019-06-12] MEDS ORDERED: SODIUM BICARBONATE 8.4% 1 MEQ/ML 50ML SYR IV ONE (03:00)
[2019-06-12] MEDS ORDERED: NICARDIPINE 40MG/200ML PREMIX 200 ML IV PRN (03:15)
[2019-06-12] MEDS ORDERED: LORAZEPAM 2MG/ML CPJ IV ONE (03:15)
[2019-06-12] MEDS ORDERED: MIDAZOLAM HCL 50 MG in DEXTROSE 5% WATER 40 ML IV SCH (03:30)
[2019-06-12] MEDS ORDERED: ASPIRIN 300MG SUPP PR SCH (04:30)
[2019-06-12] MEDS ORDERED: NOREPINEPHRINE 4MG/250ML PMX 250 ML IV PRN (07:15)
[2019-06-12 09:53] LABS: BG CARBOXYHEMOGLOBIN 0.4 % (0.5-1.5); BG DEOXYHEMOGLOBIN 0.3 % (0.0-5.0); BG FRACTION INSPIRED OXYGEN 100; BG HCO3 ACT 21.3 mmol/L (22.0-26.0); BG METHEMOGLOBIN 0.2 % (0.0-1.5); BG OXYGEN SATURATION 99.7 % (92.0-98.5); BG OXYHEMOGLOBIN 99.1 % (94.0-97.0); BG PH 7.414 (7.350-7.450); BG PO2 302.7 mmHg (75.0-100.0); BG SAMPLE SITE RIGHT RADIAL; BG TIDAL VOLUME(mL) 500 mL; BG TOTAL HEMOGLOBIN 6.8 g/dL (12.0-18.0); BG VENT MODE VENT - A/C; BG VENT RATE 18 set
[2019-06-12] MEDS ORDERED: PIPERACILLIN/TAZOBACTAM 3.375 G in DEXT 5% WATER 100 ML IV SCH (10:15)
[2019-06-12] MEDS ORDERED: ACETAMINOPHEN 325MG TABLET PO PRN (10:15)
[2019-06-12] MEDS ORDERED: ONDANSETRON HCL 4MG/2ML INJ IV PRN (10:15)
[2019-06-12] MEDS ORDERED: IPRATROPIUM/ALBUTEROL 0.5-3(2.5)MG/3ML NEB HHN PRN (10:30)
[2019-06-12] MEDS: PIPERACILLIN/TAZOBACTAM 2.25 G in DEXTROSE 5% WATER 50 ML IV SCH ×3 (11:30→23:18)
[2019-06-12] MEDS: INSULIN LISPRO 100 UNITS/ML SUBCUT SCH ×3 (12:30→23:14)
[2019-06-12] MEDS: DEXTROSE 50% WATER 50ML SYRINGE IV PRN (13:15)
[2019-06-12] MEDS: DEXT 5%/0.45% NACL 1000ML 1,000 ML IV SCH (13:16)
[2019-06-12] MEDS: BLOOD SUGAR DIAGNOSTIC STRIP TEST SCH ×3 (13:20→23:11)
[2019-06-12] MEDS ORDERED: HEPARIN SODIUM 1,000 UNIT/1ML VIAL IV ONE (13:30)
[2019-06-12] MEDS: PROPOFOL 10MG/ML 100ML 100 ML IV PRN (13:43)
[2019-06-12] MEDS: IPRATROPIUM/ALBUTEROL 0.5-3(2.5)MG/3ML NEB HHN SCH ×2 (13:49→20:27)
[2019-06-12] MEDS: PANTOPRAZOLE SODIUM 40 MG/VIAL IV SCH (14:06)
[2019-06-13] VITALS (100 sets, daily range): BP systolic 81–223; BP diastolic 55–143
[2019-06-13] MEDS: PROPOFOL 10MG/ML 100ML 100 ML IV PRN ×4 (02:14→16:15)
[2019-06-13] MEDS: IPRATROPIUM/ALBUTEROL 0.5-3(2.5)MG/3ML NEB HHN SCH ×4 (02:31→19:55)
[2019-06-13] MEDS ORDERED: HYDRALAZINE 20MG/ML VIAL IV PRN (02:45)
[2019-06-13 05:34] LABS: BASOPHILS % 0.6 % (0.0-2.0); EOSINOPHILS % 1.6 % (0.0-5.0); HEMATOCRIT. 26.1 % (42.0-52.0); HEMOGLOBIN. 8.7 g/dL (14.0-18.0); LYMPHOCYTES % 12.7 % (20.0-50.0); MEAN CORPUSCULAR HEMOGLOBIN 29.3 pg (28.0-32.0); MEAN CORPUSCULAR VOLUME 87.9 fL (80.0-94.0); MONOCYTES % 8.6 % (2.0-8.0); NEUTROPHILS % 76.5 % (40.0-76.0); PLATELET 302 x1000/uL (130-400); RED BLOOD CELL COUNT 2.97 mill/uL (4.7-6.1); RED CELL DISTRIBUTION WIDTH 17.2 % (11.6-14.6)
[2019-06-13] MEDS: PIPERACILLIN/TAZOBACTAM 2.25 G in DEXTROSE 5% WATER 50 ML IV SCH ×3 (05:36→22:22)
[2019-06-13 05:42] LABS: PHOSPHORUS 6.3 mg/dL (2.5-4.9)
[2019-06-13] MEDS: INSULIN LISPRO 100 UNITS/ML SUBCUT SCH ×4 (05:43→23:35)
[2019-06-13] MEDS: BLOOD SUGAR DIAGNOSTIC STRIP TEST SCH ×4 (05:43→23:25)
[2019-06-13 08:01] LABS: BG BASE EXCESS 0.7 mmol/L (-2.0-2.0); BG CARBOXYHEMOGLOBIN 0.3 % (0.5-1.5); BG DEOXYHEMOGLOBIN 1.2 % (0.0-5.0); BG METHEMOGLOBIN 0.3 % (0.0-1.5); BG OXYGEN SATURATION 98.8 % (92.0-98.5); BG OXYHEMOGLOBIN 98.2 % (94.0-97.0); BG PCO2 38.6 mmHg (35.0-45.0); BG PH 7.429 (7.350-7.450); BG PO2 145.4 mmHg (75.0-100.0); BG SAMPLE SITE RIGHT RADIAL; BG TIDAL VOLUME(mL) 500 mL; BG TOTAL HEMOGLOBIN 8.7 g/dL (12.0-18.0); BG VENT MODE VENT - A/C; BG VENT RATE 16 set
[2019-06-13] MEDS: PANTOPRAZOLE SODIUM 40 MG/VIAL IV SCH (08:08)
[2019-06-13] MEDS: HYDRALAZINE 20MG/ML VIAL IV PRN ×2 (09:03→15:14)
[2019-06-13] MEDS ORDERED: MINOXIDIL 2.5MG TABLET PO PRN (09:45)
[2019-06-13] MEDS: CLONIDINE 0.3MG TABLET PO SCH ×3 (10:06→22:00)
[2019-06-13] MEDS ORDERED: LABETALOL 5MG/ML SYR 20 MG/4 ML SYRINGE IV NR (11:45)
[2019-06-13] MEDS: LOSARTAN POTASSIUM 100 MG TABLET PO SCH (12:08)
[2019-06-13] MEDS: FENTANYL CITRATE/PF 500 MCG in SODIUM CHLORIDE 0.9% 40 ML IV PRN (12:10)
[2019-06-13] MEDS: DEXT 5%/0.45% NACL 1000ML 1,000 ML IV SCH (12:30)
[2019-06-13] MEDS ORDERED: NICARDIPINE 50 MG in SODIUM CHLORIDE 0.9% 230 ML IV PRN (13:00)
[2019-06-13] MEDS: MINOXIDIL 2.5MG TABLET PO SCH ×2 (14:52→22:45)
[2019-06-13] MEDS: AMLODIPINE 5MG TABLET PO SCH ×2 (15:14→22:46)
[2019-06-14] VITALS (81 sets, daily range): BP systolic 77–160; BP diastolic 52–112
[2019-06-14] MEDS: FENTANYL CITRATE/PF 500 MCG in SODIUM CHLORIDE 0.9% 40 ML IV PRN ×2 (00:23→18:39)
[2019-06-14] MEDS: IPRATROPIUM/ALBUTEROL 0.5-3(2.5)MG/3ML NEB HHN SCH ×4 (01:28→22:07)
[2019-06-14] MEDS: CLONIDINE 0.3MG TABLET PO SCH ×3 (05:35→22:00)
[2019-06-14] MEDS: BLOOD SUGAR DIAGNOSTIC STRIP TEST SCH ×3 (05:36→17:21)
[2019-06-14 05:43] LABS: HEMATOCRIT. 23.4 % (42.0-52.0); HEMOGLOBIN. 7.5 g/dL (14.0-18.0); MEAN CORPUSCULAR HEMOGLOBIN 29.2 pg (28.0-32.0); MEAN CORPUSCULAR VOLUME 90.9 fL (80.0-94.0); MEAN PLATELET VOLUME 8.4 fl (7.4-10.4); PLATELET 220 x1000/uL (130-400); RED BLOOD CELL COUNT 2.58 mill/uL (4.7-6.1); RED CELL DISTRIBUTION WIDTH 17.6 % (11.6-14.6)
[2019-06-14 05:44] LABS: PHOSPHORUS 7.6 mg/dL (2.5-4.9)
[2019-06-14] MEDS: PIPERACILLIN/TAZOBACTAM 2.25 G in DEXTROSE 5% WATER 50 ML IV SCH ×3 (05:58→21:26)
[2019-06-14] MEDS: INSULIN LISPRO 100 UNITS/ML SUBCUT SCH ×3 (06:00→17:21)
[2019-06-14 08:17] LABS: PLATELET ESTIMATE NORMAL
[2019-06-14] MEDS: MINOXIDIL 2.5MG TABLET PO SCH ×3 (08:17→21:26)
[2019-06-14] MEDS: AMLODIPINE 5MG TABLET PO SCH (08:17)
[2019-06-14] MEDS: LOSARTAN POTASSIUM 100 MG TABLET PO SCH (08:17)
[2019-06-14] MEDS: PANTOPRAZOLE SODIUM 40 MG/VIAL IV SCH (08:17)
[2019-06-14] MEDS: PROPOFOL 10MG/ML 100ML 100 ML IV PRN (10:44)
[2019-06-14] MEDS: DEXT 5%/0.45% NACL 1000ML 1,000 ML IV SCH (12:11)
[2019-06-14] MEDS ORDERED: PROPOFOL 10MG/ML 100ML 100 ML IV PRN (13:45)
[2019-06-14] MEDS: CALCIUM ACETATE 667MG CAPSULE NG SCH ×2 (14:53→21:26)
[2019-06-14] MEDS: DEXTROSE 50% WATER 50ML SYRINGE IV PRN (17:21)
[2019-06-14] MEDS ORDERED: NOREPINEPHRINE 32 MG in DEXT 5% WATER 468 ML IV PRN (19:15)
[2019-06-15] VITALS (28 sets, daily range): BP systolic 89–203; BP diastolic 68–120
[2019-06-15] MEDS: BLOOD SUGAR DIAGNOSTIC STRIP TEST SCH ×4 (00:42→18:38)
[2019-06-15] MEDS: FENTANYL CITRATE/PF 500 MCG in SODIUM CHLORIDE 0.9% 40 ML IV PRN (04:15)
[2019-06-15 05:41] LABS: HEMATOCRIT. 27.7 % (42.0-52.0); HEMOGLOBIN. 8.9 g/dL (14.0-18.0); MEAN CORPUSCULAR VOLUME 89.9 fL (80.0-94.0); MEAN PLATELET VOLUME 9.1 fl (7.4-10.4); PLATELET 209 x1000/uL (130-400); RED BLOOD CELL COUNT 3.08 mill/uL (4.7-6.1); RED CELL DISTRIBUTION WIDTH 17.8 % (11.6-14.6)
[2019-06-15] MEDS: CLONIDINE 0.3MG TABLET PO SCH (05:54)
[2019-06-15] MEDS: INSULIN LISPRO 100 UNITS/ML SUBCUT SCH ×4 (06:00→18:00)
[2019-06-15] MEDS: CALCIUM ACETATE 667MG CAPSULE NG SCH ×2 (06:03→13:03)
[2019-06-15] MEDS: PIPERACILLIN/TAZOBACTAM 2.25 G in DEXTROSE 5% WATER 50 ML IV SCH ×3 (06:03→22:14)
[2019-06-15 07:48] LABS: PHOSPHORUS 5.8 mg/dL (2.5-4.9)
[2019-06-15] MEDS: IPRATROPIUM/ALBUTEROL 0.5-3(2.5)MG/3ML NEB HHN SCH ×3 (08:56→20:39)
[2019-06-15] MEDS: PANTOPRAZOLE SODIUM 40 MG/VIAL IV SCH (09:08)
[2019-06-15] MEDS: MINOXIDIL 2.5MG TABLET PO SCH ×2 (09:09→20:40)
[2019-06-15] MEDS: FOLIC ACID 1MG TABLET PO SCH (09:09)
[2019-06-15] MEDS: THIAMINE HCL 100MG TABLET PO SCH (09:09)
[2019-06-15] MEDS: DEXT 5%/0.45% NACL 1000ML 1,000 ML IV SCH (10:46)
[2019-06-15 10:55] LABS: BG BASE EXCESS 0.3 mmol/L (-2.0-2.0); BG CARBOXYHEMOGLOBIN 0.3 % (0.5-1.5); BG DEOXYHEMOGLOBIN 1.1 % (0.0-5.0); BG FRACTION INSPIRED OXYGEN 40; BG METHEMOGLOBIN 0.7 % (0.0-1.5); BG OXYGEN SATURATION 98.9 % (92.0-98.5); BG OXYHEMOGLOBIN 97.9 % (94.0-97.0); BG PCO2 40.1 mmHg (35.0-45.0); BG PH 7.412 (7.350-7.450); BG PO2 167.6 mmHg (75.0-100.0); BG PRESSURE SUPPORT 8; BG SAMPLE SITE RIGHT RADIAL; BG TOTAL HEMOGLOBIN 8.2 g/dL (12.0-18.0); BG VENT MODE VENT - CPAP
[2019-06-15] MEDS ORDERED: LORAZEPAM 2MG/ML CPJ IV PRN (13:00)
[2019-06-15 13:01] LABS: ATYPICAL LYMPHOCYTES 1; PLATELET ESTIMATE NORMAL
[2019-06-15] MEDS: CLONIDINE 0.2MG TABLET PO SCH ×2 (13:03→21:39)
[2019-06-15] MEDS: HALOPERIDOL LACTATE 5MG/ML VIAL IM PRN (17:45)
[2019-06-15] MEDS: LORAZEPAM 2MG/ML CPJ IM PRN (20:19)
[2019-06-15] MEDS: CALCIUM ACETATE 667 MG/5 ML SOLUTION NG SCH (21:39)
[2019-06-15] MEDS ORDERED: CLONIDINE 0.1MG TABLET PO PRN (22:00)
[2019-06-15] MEDS: HYDRALAZINE 20MG/ML VIAL IV PRN (22:23)
[2019-06-16] VITALS (36 sets, daily range): BP systolic 118–225; BP diastolic 57–124
[2019-06-16] MEDS: BLOOD SUGAR DIAGNOSTIC STRIP TEST SCH ×6 (00:33→23:43)
[2019-06-16] MEDS: IPRATROPIUM/ALBUTEROL 0.5-3(2.5)MG/3ML NEB HHN SCH ×3 (01:24→20:30)
[2019-06-16] MEDS: HALOPERIDOL LACTATE 5MG/ML VIAL IM PRN (01:58)
[2019-06-16] MEDS: LORAZEPAM 2MG/ML CPJ IM PRN ×2 (04:26→11:00)
[2019-06-16] MEDS: PIPERACILLIN/TAZOBACTAM 2.25 G in DEXTROSE 5% WATER 50 ML IV SCH ×3 (06:00→21:46)
[2019-06-16] MEDS: CALCIUM ACETATE 667 MG/5 ML SOLUTION NG SCH ×2 (06:00→13:20)
[2019-06-16] MEDS: INSULIN LISPRO 100 UNITS/ML SUBCUT SCH ×5 (06:00→23:43)
[2019-06-16] MEDS: CLONIDINE 0.2MG TABLET PO SCH ×2 (06:00→13:20)
[2019-06-16 06:13] LABS: BASOPHILS % 0.3 % (0.0-2.0); EOSINOPHILS % 4.9 % (0.0-5.0); HEMATOCRIT. 21.9 % (42.0-52.0); HEMOGLOBIN. 7.1 g/dL (14.0-18.0); LYMPHOCYTES % 12.7 % (20.0-50.0); MEAN CORPUSCULAR HEMOGLOBIN 28.7 pg (28.0-32.0); MEAN CORPUSCULAR VOLUME 88.4 fL (80.0-94.0); MEAN PLATELET VOLUME 8.6 fl (7.4-10.4); MONOCYTES % 11.4 % (2.0-8.0); NEUTROPHILS % 70.7 % (40.0-76.0); PLATELET 218 x1000/uL (130-400); RED BLOOD CELL COUNT 2.48 mill/uL (4.7-6.1); RED CELL DISTRIBUTION WIDTH 17.6 % (11.6-14.6)
[2019-06-16 06:32] LABS: PHOSPHORUS 7.5 mg/dL (2.5-4.9)
[2019-06-16] MEDS: MINOXIDIL 2.5MG TABLET PO SCH ×3 (08:32→21:46)
[2019-06-16] MEDS: FOLIC ACID 1MG TABLET PO SCH (08:33)
[2019-06-16] MEDS: THIAMINE HCL 100MG TABLET PO SCH (08:33)
[2019-06-16] MEDS: PANTOPRAZOLE SODIUM 40 MG/VIAL IV SCH (08:33)
[2019-06-16] MEDS: HYDRALAZINE 20MG/ML VIAL IV PRN ×2 (10:08→13:20)
[2019-06-16] MEDS: DEXT 5%/0.45% NACL 1000ML 1,000 ML IV SCH (11:00)
[2019-06-16] MEDS ORDERED: MINOXIDIL 2.5MG TABLET PO SCH (21:00)
[2019-06-16] MEDS: CLONIDINE 0.3MG TABLET PO SCH (21:45)
[2019-06-16] MEDS: MORPHINE SULFATE 2 MG/ML CPJ (NOT FOR IM USE) IV PRN (21:47)
[2019-06-16 23:34] LABS: HEMATOCRIT 23.6 % (42.0-52.0); HEMOGLOBIN 7.9 g/dL (14.0-18.0)
[2019-06-17] VITALS: BP 136/77
[2019-06-17 02:00] VITALS: BP 147/91
[2019-06-17] MEDS: IPRATROPIUM/ALBUTEROL 0.5-3(2.5)MG/3ML NEB HHN SCH (02:14)
[2019-06-17] MEDS: MORPHINE SULFATE 2 MG/ML CPJ (NOT FOR IM USE) IV PRN (02:44)
[2019-06-17 04:00] VITALS: BP 107/64
[2019-06-17 06:00] VITALS: BP 140/90
[2019-06-17] MEDS: INSULIN LISPRO 100 UNITS/ML SUBCUT SCH (06:00)
[2019-06-17] MEDS: PIPERACILLIN/TAZOBACTAM 2.25 G in DEXTROSE 5% WATER 50 ML IV SCH (06:29)
[2019-06-17] MEDS: CLONIDINE 0.3MG TABLET PO SCH (06:29)
[2019-06-17 06:39] LABS: BASOPHILS % 0.8 % (0.0-2.0); EOSINOPHILS % 5.2 % (0.0-5.0); HEMATOCRIT. 23.3 % (42.0-52.0); HEMOGLOBIN. 7.7 g/dL (14.0-18.0); LYMPHOCYTES % 15.1 % (20.0-50.0); MEAN CORPUSCULAR HEMOGLOBIN 29.8 pg (28.0-32.0); MEAN CORPUSCULAR VOLUME 89.9 fL (80.0-94.0); MEAN PLATELET VOLUME 8.6 fl (7.4-10.4); MONOCYTES % 9.9 % (2.0-8.0); PLATELET 206 x1000/uL (130-400); RED BLOOD CELL COUNT 2.59 mill/uL (4.7-6.1); RED CELL DISTRIBUTION WIDTH 16.9 % (11.6-14.6)
[2019-06-17] MEDS: BLOOD SUGAR DIAGNOSTIC STRIP TEST SCH (06:46)
[2019-06-17 07:01] LABS: PHOSPHORUS 7.6 mg/dL (2.5-4.9)
[2019-06-17] MEDS ORDERED: CALCIUM ACETATE 667MG CAPSULE PO SCH ×2 (08:00→13:00)
== END 2019-06-17 08:28 | disposition left against medical advice (07) | DRG 133 ==
LOC: ER 01:01 → MICUNO 04:14 → EDBEDREQ 04:18 → EDBEDREQTM 04:18 → EDBEDREQSVC 04:18 → EDBEDREQTM 05:35 → ENRESERV 07:41 → CVICU 06-14 18:15 → 5EST 06-16 11:48
PROVIDERS: ADMIT Internal Medicine; ATTEND Internal Medicine
PROC: 5A1945Z Respiratory Ventilation, 24-96 Consecutive Hours (ICD-10-PCS; 2019-06-12)
PROC: 0BH17EZ Insertion of Endotracheal Airway into Trachea, Via Natural or Artificial Opening (ICD-10-PCS; 2019-06-12)
PROC: 5A09357 Assistance with Respiratory Ventilation, Less than 24 Consecutive Hours, Continuous Positive Airway Pressure (ICD-10-PCS; 2019-06-15)
PROC: 30233N1 Transfusion of Nonautologous Red Blood Cells into Peripheral Vein, Percutaneous Approach (ICD-10-PCS; principal; 2019-06-16)
PROC: 5A09357 Assistance with Respiratory Ventilation, Less than 24 Consecutive Hours, Continuous Positive Airway Pressure (ICD-10-PCS; 2019-06-17)
DX: J96.02 Acute respiratory failure with hypercapnia (principal); I13.2 Hypertensive heart and chronic kidney disease with heart failure and with stage 5 chronic kidney disease, or end stage renal disease; G93.40 Encephalopathy, unspecified; J18.9 Pneumonia, unspecified organism; E44.0 Moderate protein-calorie malnutrition; E11.22 Type 2 diabetes mellitus with diabetic chronic kidney disease; E11.649 Type 2 diabetes mellitus with hypoglycemia without coma; I95.9 Hypotension, unspecified; E87.2 Acidosis; N18.6 End stage renal disease; E87.5 Hyperkalemia; F41.9 Anxiety disorder, unspecified; D63.8 Anemia in other chronic diseases classified elsewhere; B19.20 Unspecified viral hepatitis C without hepatic coma; E87.1 Hypo-osmolality and hyponatremia; F17.210 Nicotine dependence, cigarettes, uncomplicated; F32.9 Major depressive disorder, single episode, unspecified; G40.909 Epilepsy, unspecified, not intractable, without status epilepticus; I50.33 Acute on chronic diastolic (congestive) heart failure; E21.3 Hyperparathyroidism, unspecified; G89.29 Other chronic pain; I16.0 Hypertensive urgency; K21.9 Gastro-esophageal reflux disease without esophagitis; M54.5 Low back pain; J44.9 Chronic obstructive pulmonary disease, unspecified; Z59.0 Homelessness; Z82.49 Family history of ischemic heart disease and other diseases of the circulatory system; Z87.11 Personal history of peptic ulcer disease; Z91.15 Patient's noncompliance with renal dialysis; Z91.19 Patient's noncompliance with other medical treatment and regimen; Z99.2 Dependence on renal dialysis; Z79.899 Other long term (current) drug therapy; Z68.26 Body mass index [BMI] 26.0-26.9, adult; Z87.01 Personal history of pneumonia (recurrent)
CPT/HCPCS: 31500; 36415; 36600; 71045; 80048; 80053; 80320; 82270; 82375; 82805; 82962; 83036; 83605; 83735; 84100; 84145; 84478; 84484; 85014; 85018; 85025; 86850; 86900; 86920; 87070; 87804; 93005; 99291; C9113; J0360; J1630; J1644; J1815; J2060; J2250; J2270; J2543; J2704; J3010; J3490; J7050; J7060; P9016; G0480

== ENCOUNTER 2019-06-28 05:12 | Inpatient (IN) | payer OTHER ==
[2019-06-28] VITALS (9 sets, daily range): BP systolic 157–228; BP diastolic 97–138
[~2019-06-28] VITALS: Ht 180.3 cm; Wt 59.0 kg
[2019-06-28 05:57] LABS: BASOPHILS % 0.9 % (0.0-2.0); EOSINOPHILS % 1.8 % (0.0-5.0); HEMATOCRIT. 22.4 % (42.0-52.0); HEMOGLOBIN. 7.3 g/dL (14.0-18.0); LYMPHOCYTES % 14.4 % (20.0-50.0); MEAN CORPUSCULAR HEMOGLOBIN 29.7 pg (28.0-32.0); MEAN PLATELET VOLUME 8.4 fl (7.4-10.4); MONOCYTES % 5.7 % (2.0-8.0); NEUTROPHILS % 77.2 % (40.0-76.0); PLATELET 329 x1000/uL (130-400); RED BLOOD CELL COUNT 2.46 mill/uL (4.7-6.1); RED CELL DISTRIBUTION WIDTH 17.4 % (11.6-14.6)
[2019-06-28 05:58] LABS: CHLORIDE 102 mEq/L (98-107)
[2019-06-28] MEDS ORDERED: ALBUTEROL (0.083%) 2.5MG/3ML NEB HHN STA (06:22)
[2019-06-28] MEDS ORDERED: IPRATROPIUM BROMIDE (0.02%) 0.5MG/2.5ML NEB HHN STA (06:22)
[2019-06-28] MEDS ORDERED: MORPHINE SULFATE 4 MG/ML CPJ (NOT FOR IM USE) IV ONE (06:30)
[2019-06-28] MEDS ORDERED: ONDANSETRON HCL 4MG/2ML INJ IV ONE (06:30)
[2019-06-28] MEDS ORDERED: HYDRALAZINE 20MG/ML VIAL IV ONE (06:45)
[2019-06-28] MEDS ORDERED: LEVOFLOXACIN 500MG PREMIX 100 ML IV ONE (07:15)
[2019-06-28] MEDS ORDERED: ONDANSETRON HCL 4MG/2ML INJ IV PRN (10:15)
[2019-06-28] MEDS ORDERED: ACETAMINOPHEN 325MG TABLET PO PRN (10:15)
[2019-06-28] MEDS ORDERED: CLONIDINE 0.1MG TABLET PO PRN (10:15)
[2019-06-28] MEDS ORDERED: IPRATROPIUM/ALBUTEROL 0.5-3(2.5)MG/3ML NEB HHN PRN (10:15)
[2019-06-28] MEDS: DIPHENHYDRAMINE 50MG/ML VIAL IV PRN (10:49)
[2019-06-28 10:50] LABS: PHOSPHORUS 8.7 mg/dL (2.5-4.9)
[2019-06-28] MEDS: MORPHINE SULFATE 2 MG/ML CPJ (NOT FOR IM USE) IV PRN ×2 (10:51→17:45)
[2019-06-28] MEDS ORDERED: AMLODIPINE 5MG TABLET PO SCH (11:30)
[2019-06-28] MEDS: FOLIC ACID/VITAMIN B COMP W-C TABLET PO SCH (11:42)
[2019-06-28] MEDS: CLONIDINE 0.3MG TABLET PO SCH (11:44)
[2019-06-28] MEDS: MINOXIDIL 2.5MG TABLET PO SCH (11:46)
[2019-06-28] MEDS ORDERED: LABETALOL 5MG/ML SYR 20 MG/4 ML SYRINGE IV NR (12:00)
[2019-06-28] MEDS: DILTIAZEM HCL 60MG TABLET PO SCH ×2 (14:17→17:48)
[2019-06-28] MEDS: SEVELAMER CARBONATE 800 MG TABLET PO SCH ×2 (14:17→17:47)
[2019-06-28] MEDS ORDERED: EPOETIN ALFA 10000UNITS/ML VIAL SUBCUT SCH (21:00)
[2019-06-29] VITALS (8 sets, daily range): BP systolic 122–176; BP diastolic 73–103
[2019-06-29] MEDS: CLONIDINE 0.3MG TABLET PO SCH ×3 (00:09→13:20)
[2019-06-29] MEDS: DILTIAZEM HCL 60MG TABLET PO SCH ×3 (00:09→11:04)
[2019-06-29] MEDS: MINOXIDIL 2.5MG TABLET PO SCH ×3 (00:09→11:04)
[2019-06-29] MEDS: LEVETIRACETAM 500MG TABLET PO SCH ×3 (00:10→11:05)
[2019-06-29] MEDS: DIPHENHYDRAMINE 50MG/ML VIAL IV PRN (00:10)
[2019-06-29] MEDS: MORPHINE SULFATE 2 MG/ML CPJ (NOT FOR IM USE) IV PRN (00:11)
[2019-06-29 06:37] LABS: BASOPHILS % 0.9 % (0.0-2.0); HEMATOCRIT. 21.5 % (42.0-52.0); HEMOGLOBIN. 7.2 g/dL (14.0-18.0); LYMPHOCYTES % 10.2 % (20.0-50.0); MEAN CORPUSCULAR HEMOGLOBIN 29.6 pg (28.0-32.0); MEAN CORPUSCULAR VOLUME 88.9 fL (80.0-94.0); MEAN PLATELET VOLUME 8.4 fl (7.4-10.4); MONOCYTES % 8.1 % (2.0-8.0); NEUTROPHILS % 76.8 % (40.0-76.0); PLATELET 281 x1000/uL (130-400); RED BLOOD CELL COUNT 2.42 mill/uL (4.7-6.1); RED CELL DISTRIBUTION WIDTH 18.1 % (11.6-14.6)
[2019-06-29 06:56] LABS: CHLORIDE 99 mEq/L (98-107)
[2019-06-29 07:02] LABS: PHOSPHORUS 6.4 mg/dL (2.5-4.9)
[2019-06-29 07:03] LABS: LDL CHOLESTEROL 119 mg/dL (5-100)
[2019-06-29 07:04] LABS: HDL CHOLESTEROL 50 mg/dL (40-59)
[2019-06-29] MEDS: SEVELAMER CARBONATE 800 MG TABLET PO SCH ×3 (08:00→13:00)
[2019-06-29] MEDS: FOLIC ACID/VITAMIN B COMP W-C TABLET PO SCH ×2 (09:00→11:05)
[2019-06-29] MEDS ORDERED: DILT240T12 MT (11:46)
[2019-06-29] MEDS ORDERED: CLON0.3T PO (11:46)
[2019-06-29] MEDS ORDERED: ATOR20TA65 MT (11:48)
== END 2019-06-29 14:17 | disposition home or self-care (01) | DRG 199 ==
LOC: ER 05:12 → 5EST 08:03 → EDBEDREQ 08:05 → EDBEDREQSVC 08:05 → EDBEDREQTM 08:05 → ENRESERV 09:25
PROVIDERS: ADMIT Internal Medicine; ATTEND Internal Medicine
PROC: 5A1D70Z Performance of Urinary Filtration, Intermittent, Less than 6 Hours Per Day (ICD-10-PCS; principal; 2019-06-28)
DX: I16.1 Hypertensive emergency (principal); J96.01 Acute respiratory failure with hypoxia; I50.33 Acute on chronic diastolic (congestive) heart failure; J18.9 Pneumonia, unspecified organism; N17.9 Acute kidney failure, unspecified; E11.22 Type 2 diabetes mellitus with diabetic chronic kidney disease; N18.6 End stage renal disease; I13.2 Hypertensive heart and chronic kidney disease with heart failure and with stage 5 chronic kidney disease, or end stage renal disease; J44.1 Chronic obstructive pulmonary disease with (acute) exacerbation; E83.39 Other disorders of phosphorus metabolism; G40.909 Epilepsy, unspecified, not intractable, without status epilepticus; F17.210 Nicotine dependence, cigarettes, uncomplicated; D63.8 Anemia in other chronic diseases classified elsewhere; K21.9 Gastro-esophageal reflux disease without esophagitis; B19.20 Unspecified viral hepatitis C without hepatic coma; B15.9 Hepatitis A without hepatic coma; M54.9 Dorsalgia, unspecified; M54.5 Low back pain; G89.29 Other chronic pain; L29.9 Pruritus, unspecified; F14.10 Cocaine abuse, uncomplicated; F41.9 Anxiety disorder, unspecified; F32.9 Major depressive disorder, single episode, unspecified; J44.0 Chronic obstructive pulmonary disease with (acute) lower respiratory infection; Z82.49 Family history of ischemic heart disease and other diseases of the circulatory system; Z99.2 Dependence on renal dialysis; Z79.899 Other long term (current) drug therapy; Z87.11 Personal history of peptic ulcer disease; Z91.15 Patient's noncompliance with renal dialysis; Z91.14 Patient's other noncompliance with medication regimen; Z91.19 Patient's noncompliance with other medical treatment and regimen
CPT/HCPCS: 36415; 71045; 80053; 80061; 83605; 83735; 83880; 84100; 84443; 84484; 85025; 93005; 94640; 99291; J0360; J0885; J1200; J1956; J2270; J2405; J3490

== ENCOUNTER 2019-07-20 16:06 | Inpatient (IN) | payer OTHER ==
[~2019-07-20] VITALS: Ht 172.7 cm; Wt 52.6 kg
[~2019-07-20 16:06] MED LIST changes: +ATOR20TA65 MT; -CLON0.2T12 PO; +CLON0.3T PO; +DILT240T12 MT; -METO25TA6 PO; -NIFE60TA78 PO
[2019-07-20] MEDS ORDERED: INSULIN REGULAR (HUMULIN R) 300UNITS/3ML IV ONE (16:30)
[2019-07-20] MEDS ORDERED: CALCIUM CHLORIDE 1GM/10ML SYR IV ONE (16:30)
[2019-07-20] MEDS ORDERED: SODIUM BICARBONATE 8.4% 1 MEQ/ML 50ML SYR IV ONE (16:30)
[2019-07-20] MEDS ORDERED: DEXTROSE 50% WATER 50ML SYRINGE IV ONE (16:30)
[2019-07-20 16:46] LABS: EOSINOPHILS % 5.9 % (0.0-5.0); HEMOGLOBIN. 8.3 g/dL (14.0-18.0); LYMPHOCYTES % 16.2 % (20.0-50.0); MEAN CORPUSCULAR HEMOGLOBIN 29.1 pg (28.0-32.0); MEAN CORPUSCULAR VOLUME 87.1 fL (80.0-94.0); MEAN PLATELET VOLUME 8.5 fl (7.4-10.4); MONOCYTES % 6.4 % (2.0-8.0); NEUTROPHILS % 70.5 % (40.0-76.0); PLATELET 267 x1000/uL (130-400); RED BLOOD CELL COUNT 2.87 mill/uL (4.7-6.1); RED CELL DISTRIBUTION WIDTH 19.1 % (11.6-14.6)
[2019-07-20 16:54] LABS: CHLORIDE 97 mEq/L (98-107)
[2019-07-20 16:57] LABS: ETHANOL BLOOD < 10 mg/dL
[2019-07-20] MEDS ORDERED: ASPIRIN 325MG EC TABLET PO ONE (18:00)
[2019-07-20] MEDS ORDERED: SODIUM CHLORIDE 0.9% 250 ML IV NR (18:01)
[2019-07-20 18:41] LABS: D-DIMER 2.05 mg/L FEU (<0.50); INR 1.1; PARTIAL THROMBOPLASTIN TIME 29.2 sec (23.4-31.0); PROTHROMBIN TIME 11.7 sec (9.6-11.0)
[2019-07-20 20:59] LABS: PHOSPHORUS 7.7 mg/dL (2.5-4.9)
[2019-07-20] MEDS ORDERED: AZITHROMYCIN 500MG in DEXTROSE 5% WATER 250ML IV NR (21:00)
[2019-07-20] MEDS ORDERED: CEFTRIAXONE 1 G PREMIX 50 ML IV SCH (21:00)
[2019-07-20] MEDS: HYDRALAZINE 20MG/ML VIAL IV PRN (21:23)
[2019-07-20 23:00] VITALS: BP_SYST 170; BP_SYST 171; BP_DIAS 113
[2019-07-20] MEDS ORDERED: DEXTROSE 50% WATER 50ML SYRINGE IV PRN (23:30)
[2019-07-21] VITALS (7 sets, daily range): BP systolic 142–210; BP diastolic 95–126
[2019-07-21] MEDS: ACETAMINOPHEN 325MG TABLET PO PRN (03:47)
[2019-07-21] MEDS: HYDRALAZINE 20MG/ML VIAL IV PRN (04:44)
[2019-07-21] MEDS: NIFEDIPINE XL 60MG TAB PO SCH ×2 (06:12→08:57)
[2019-07-21] MEDS: INSULIN LISPRO 100 UNITS/ML SUBCUT SCH ×4 (06:36→20:58)
[2019-07-21] MEDS: BLOOD SUGAR DIAGNOSTIC STRIP TEST SCH ×4 (06:36→20:58)
[2019-07-21 07:56] LABS: BASOPHILS % 1.2 % (0.0-2.0); EOSINOPHILS % 5.8 % (0.0-5.0); HEMATOCRIT. 26.8 % (42.0-52.0); HEMOGLOBIN. 8.7 g/dL (14.0-18.0); LYMPHOCYTES % 14.9 % (20.0-50.0); MEAN CORPUSCULAR HEMOGLOBIN 28.4 pg (28.0-32.0); MEAN PLATELET VOLUME 9.2 fl (7.4-10.4); MONOCYTES % 5.9 % (2.0-8.0); NEUTROPHILS % 72.2 % (40.0-76.0); PLATELET 283 x1000/uL (130-400); RED BLOOD CELL COUNT 3.08 mill/uL (4.7-6.1); RED CELL DISTRIBUTION WIDTH 19.6 % (11.6-14.6)
[2019-07-21] MEDS: FOLIC ACID/VITAMIN B COMP W-C TABLET PO SCH (10:52)
[2019-07-21] MEDS: LOSARTAN POTASSIUM 100 MG TABLET PO SCH (10:52)
[2019-07-21] MEDS ORDERED: CLONIDINE 0.2MG TABLET PO PRN (12:15)
[2019-07-21] MEDS: SEVELAMER CARBONATE 800 MG TABLET PO SCH ×2 (12:39→17:34)
[2019-07-21] MEDS: CLONIDINE 0.3MG TABLET PO SCH ×2 (13:01→20:58)
[2019-07-21] MEDS: LEVETIRACETAM 500MG TABLET PO SCH ×3 (14:28→23:15)
[2019-07-21] MEDS: FAMOTIDINE 20MG TABLET PO SCH (14:28)
[2019-07-21] MEDS: ATORVASTATIN CALCIUM 20MG TABLET PO SCH (14:28)
[2019-07-21] MEDS: MINOXIDIL 2.5MG TABLET PO SCH (20:57)
[2019-07-21] MEDS: TAMSULOSIN HCL 0.4MG SR CAPSULE PO SCH (20:57)
[2019-07-21] MEDS: METOPROLOL TARTRATE 50MG TABLET PO SCH (20:58)
[2019-07-21] MEDS ORDERED: CEFTRIAXONE 1 G PREMIX 50 ML IV SCH (22:00)
[2019-07-21] MEDS ORDERED: AZITHROMYCIN 500 MG in DEXT 5% WATER 250 ML IV SCH (22:00)
[2019-07-22] VITALS: BP 155/91
[2019-07-22] MEDS: CLONIDINE 0.3MG TABLET PO SCH ×3 (06:00→21:02)
[2019-07-22] MEDS: BLOOD SUGAR DIAGNOSTIC STRIP TEST SCH ×4 (06:29→20:52)
[2019-07-22] MEDS: INSULIN LISPRO 100 UNITS/ML SUBCUT SCH ×4 (06:29→20:52)
[2019-07-22] MEDS: SEVELAMER CARBONATE 800 MG TABLET PO SCH ×3 (06:29→18:27)
[2019-07-22 08:00] VITALS: BP 137/78
[2019-07-22] MEDS: MINOXIDIL 2.5MG TABLET PO SCH ×2 (08:44→20:51)
[2019-07-22] MEDS: LEVETIRACETAM 500MG TABLET PO SCH ×2 (08:44→20:51)
[2019-07-22] MEDS: METOPROLOL TARTRATE 50MG TABLET PO SCH ×2 (08:44→20:51)
[2019-07-22] MEDS: ATORVASTATIN CALCIUM 20MG TABLET PO SCH (08:44)
[2019-07-22] MEDS: FAMOTIDINE 20MG TABLET PO SCH (08:44)
[2019-07-22] MEDS: FOLIC ACID/VITAMIN B COMP W-C TABLET PO SCH (08:44)
[2019-07-22] MEDS: LOSARTAN POTASSIUM 100 MG TABLET PO SCH (08:45)
[2019-07-22] MEDS: NIFEDIPINE XL 60MG TAB PO SCH (08:45)
[2019-07-22 09:13] LABS: HEMATOCRIT. 25.5 % (42.0-52.0); HEMOGLOBIN. 8.1 g/dL (14.0-18.0); MEAN CORPUSCULAR HEMOGLOBIN 28.4 pg (28.0-32.0); MEAN CORPUSCULAR VOLUME 89.5 fL (80.0-94.0); MEAN PLATELET VOLUME 9.6 fl (7.4-10.4); PLATELET 253 x1000/uL (130-400); RED BLOOD CELL COUNT 2.85 mill/uL (4.7-6.1); RED CELL DISTRIBUTION WIDTH 19.1 % (11.6-14.6)
[2019-07-22 10:37] LABS: PHOSPHORUS 8.8 mg/dL (2.5-4.9)
[2019-07-22 10:57] LABS: PLATELET ESTIMATE NORMAL
[2019-07-22 16:00] VITALS: BP 143/97
[2019-07-22 20:00] VITALS: BP 143/81
[2019-07-22] MEDS: TAMSULOSIN HCL 0.4MG SR CAPSULE PO SCH (20:50)
[2019-07-22] MEDS ORDERED: EPOETIN ALFA 4000UNITS/ML VIAL SUBCUT SCH (21:00)
[2019-07-22] MEDS ORDERED: AZITHROMYCIN 500 MG in DEXT 5% WATER 250 ML IV SCH (21:00)
[2019-07-22] MEDS ORDERED: EPOETIN ALFA 10000UNITS/ML VIAL SUBCUT SCH (21:00)
[2019-07-22] MEDS: ACETAMINOPHEN 325MG TABLET PO PRN (21:10)
[2019-07-23] VITALS: BP 159/92
[2019-07-23 04:00] VITALS: BP 171/96
[2019-07-23] MEDS: CLONIDINE 0.3MG TABLET PO SCH (06:13)
[2019-07-23] MEDS: BLOOD SUGAR DIAGNOSTIC STRIP TEST SCH (06:28)
[2019-07-23] MEDS: SEVELAMER CARBONATE 800 MG TABLET PO SCH (07:50)
[2019-07-23] MEDS: INSULIN LISPRO 100 UNITS/ML SUBCUT SCH (07:50)
[2019-07-23 08:00] VITALS: BP 155/93
[2019-07-23] MEDS: LOSARTAN POTASSIUM 100 MG TABLET PO SCH (09:00)
[2019-07-23] MEDS: MINOXIDIL 2.5MG TABLET PO SCH (09:00)
[2019-07-23] MEDS ORDERED: HEPARIN SODIUM 1,000 UNIT/1ML VIAL IV SCH (09:45)
[2019-07-23] MEDS: FAMOTIDINE 20MG TABLET PO SCH (10:09)
[2019-07-23 10:10] LABS: EOSINOPHILS % 6.3 % (0.0-5.0); HEMATOCRIT. 22.6 % (42.0-52.0); HEMOGLOBIN. 7.2 g/dL (14.0-18.0); LYMPHOCYTES % 12.8 % (20.0-50.0); MEAN CORPUSCULAR HEMOGLOBIN 28.5 pg (28.0-32.0); MEAN CORPUSCULAR VOLUME 89.4 fL (80.0-94.0); MEAN PLATELET VOLUME 9.7 fl (7.4-10.4); MONOCYTES % 6.7 % (2.0-8.0); NEUTROPHILS % 73.2 % (40.0-76.0); PLATELET 176 x1000/uL (130-400); RED BLOOD CELL COUNT 2.53 mill/uL (4.7-6.1); RED CELL DISTRIBUTION WIDTH 19.4 % (11.6-14.6)
[2019-07-23] MEDS: LEVETIRACETAM 500MG TABLET PO SCH (10:10)
[2019-07-23] MEDS: FOLIC ACID/VITAMIN B COMP W-C TABLET PO SCH (10:10)
[2019-07-23] MEDS: NIFEDIPINE XL 60MG TAB PO SCH (10:22)
[2019-07-23] MEDS: ATORVASTATIN CALCIUM 20MG TABLET PO SCH (10:23)
[2019-07-23] MEDS: METOPROLOL TARTRATE 50MG TABLET PO SCH (10:23)
[2019-07-24] MEDS ORDERED: NIFEDIPINE XL 90MG TAB PO SCH (09:00)
== END 2019-07-23 11:30 | disposition left against medical advice (07) | DRG 194 ==
LOC: ER 16:06 → ENRESERV 21:16 → 7EST 22:46 → 6WST 07-22 16:08
PROVIDERS: ADMIT Internal Medicine; ATTEND Internal Medicine
PROC: 5A1D70Z Performance of Urinary Filtration, Intermittent, Less than 6 Hours Per Day (ICD-10-PCS; principal; 2019-07-21)
PROC: 5A1D70Z Performance of Urinary Filtration, Intermittent, Less than 6 Hours Per Day (ICD-10-PCS; 2019-07-21)
DX: I13.2 Hypertensive heart and chronic kidney disease with heart failure and with stage 5 chronic kidney disease, or end stage renal disease (principal); G92 Toxic encephalopathy; E44.0 Moderate protein-calorie malnutrition; N18.6 End stage renal disease; E83.39 Other disorders of phosphorus metabolism; E87.5 Hyperkalemia; N25.81 Secondary hyperparathyroidism of renal origin; B18.2 Chronic viral hepatitis C; I50.33 Acute on chronic diastolic (congestive) heart failure; I16.0 Hypertensive urgency; N40.0 Benign prostatic hyperplasia without lower urinary tract symptoms; G40.909 Epilepsy, unspecified, not intractable, without status epilepticus; J44.9 Chronic obstructive pulmonary disease, unspecified; Z53.29 Procedure and treatment not carried out because of patient's decision for other reasons; D64.9 Anemia, unspecified; D72.810 Lymphocytopenia; L29.9 Pruritus, unspecified; B19.20 Unspecified viral hepatitis C without hepatic coma; D63.8 Anemia in other chronic diseases classified elsewhere; F41.9 Anxiety disorder, unspecified; F32.9 Major depressive disorder, single episode, unspecified; Z20.828 Contact with and (suspected) exposure to other viral communicable diseases; Z99.2 Dependence on renal dialysis; Z91.19 Patient's noncompliance with other medical treatment and regimen; Z59.0 Homelessness; Z87.891 Personal history of nicotine dependence; Z87.11 Personal history of peptic ulcer disease; Z79.899 Other long term (current) drug therapy; Z91.15 Patient's noncompliance with renal dialysis; Z68.1 Body mass index [BMI] 19.9 or less, adult
CPT/HCPCS: 36415; 71045; 80048; 80053; 80061; 80320; 82140; 82550; 82728; 82962; 83605; 83615; 83735; 83880; 84100; 84145; 84484; 85025; 85379; 86140; 87635; 93005; 96365; 99285; J0360; J0456; J0696; J0885; J1815; J3490; J7060; G0480